=== PATIENT | female | born 1930 | race Caucasian/White ===

== ENCOUNTER → 2016-12-13 | Outpatient (CLI) | payer MEDICARE ==
[2016-07-30 14:51] VITALS: BP 152/80
[~2016-12-13] MED LIST: ALLO300T PO; DIPH25CA3 PO; ERGO500012 PO; FERR-26 PO; LEVO500T38 PO; LISI10TA2 PO; MELO-150 PO; MELO15TA6 PO; METF10002 PO; OMEP20CA9 PO; WARF5TAB PO; [UNRECOGNIZED DRUG - OTHER] PO
--- NOTE | 2016-12-13 14:27 | RAD ---
Radionuclide parathyroid scan, 12/13/2016: History: Hypercalcemia Imaging of the neck was performed following IV injection of 21 mCi of technetium 99m sestamibi. At 15 minutes there is a focus of increased activity in the lower neck on the right. This persists on the 2 our delayed images. The findings raise the possibility of a parathyroid adenoma. No other abnormality is seen. IMPRESSION: Positive radionuclide parathyroid scan as described above. Correlation with sonographic findings is suggested.
== END | disposition home or self-care (01) ==
LOC: NM 08:50
PROVIDERS: ATTEND Internal Medicine
DX: E83.52 Hypercalcemia (principal)
CPT/HCPCS: 78070; 96374; A9500

== ENCOUNTER → 2017-05-01 | Outpatient (CLI) | payer MEDICARE ==
[2016-07-30 14:51] VITALS: BP 152/80
[~2017-05-01] MED LIST changes: -ERGO500012 PO; +ERGO500027 PO; -LEVO500T38 PO; +LEVO500T59 PO; -MELO-150 PO; +MELO15TA23 PO; +METF-620 PO; -METF10002 PO; +METF500T4 PO; +WARF-78 PO; -WARF5TAB PO
--- NOTE | 2017-05-01 17:26 | RAD ---
Indication hyperparathyroidism. Grayscale images targeted to the thyroid were obtained. No similar imaging is available. The right lobe of the thyroid measures 4.8 x 1.6 x 1.9 cm. There are 2 subcentimeter masses in the right lobe. One measures approximately 6 mm and contains a septation. An additional mass also measures approximately 6 mm but has no septations or significant complexity associated with it. The isthmus is normal. The left lobe of the thyroid is quite small measuring approximately 1.5 x 1 x 0.7 cm. No additional finding is seen involving the left lobe. IMPRESSION: Subcentimeter nodules in the right lobe of the thyroid. Small left lobe of the thyroid
== END | disposition home or self-care (01) ==
LOC: US 15:32
PROVIDERS: ATTEND Surgery
DX: E04.2 Nontoxic multinodular goiter (principal); E21.3 Hyperparathyroidism, unspecified
CPT/HCPCS: 76536

== ENCOUNTER 2017-05-15 15:28 | Emergency (ER) | payer MEDICARE ==
[~2017-05-15] VITALS: Ht 157.5 cm; Wt 68.0 kg
[~2017-05-15 15:28] MED LIST changes: +CALC500T54 PO
[2017-05-15] MEDS ORDERED: DIPHTH,PERTUSS(ACELL),TET TOX 0.5 ML DISP.SYRIN. VAX IM ONE (17:15)
--- NOTE | 2017-05-15 17:29 | PHYS DOC ---
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 The patient reports that she was transitioning from one floor surface to another and she caught her foot on a raised area in the floor. The patient fell forward landing on her hands and on her face. The patient has an abrasion to her upper lip extending from below the vermilion border approximately an border just below her nose. The patient spit out a few drops of blood that the daughter spoke with her on some Kleenex. The patient has had no ongoing bleeding here in the emergency department. The patient is eager to go back over to [facility] that she could visit her . The patient had hernia surgery just over a week ago. The patient missed her follow-up appointment secondary to concerns with her . The patient denies any ongoing headache, nausea, vomiting, and/or extremity pain. The patient is easily able to ambulate across the room. The patient is uncertain of her last date of her tetanus shot she'll be provided with a tetanus shot here in the emergency department. The patient denies any loss of consciousness after her fall. Review of Systems Review of Systems Constitutional: Denies fever or chills [] Eyes: Denies change in visual acuity, redness, or eye pain [] HENT: Denies nasal congestion or sore throat abrasion to upper lip that is hemostatic at this time[] Respiratory: Denies cough or shortness of breath [] Cardiovascular: No additional information not addressed in HPI [] GI: Denies abdominal pain, nausea, vomiting, bloody stools or diarrhea [] : Denies dysuria or hematuria [] Musculoskeletal: Denies back pain or joint pain no bony point tenderness on exam of bilateral upper extremities and lower extremities[] Integument: Denies rash or skin lesions [] Neurologic: Denies headache, focal weakness or sensory changes patient ambulatory with a narrow based gait[] Endocrine: Denies polyuria or polydipsia [] Current Medications Current Medications Current Medications Medications (Trade) Dose Ordered Sig/Eugene Start Time Stop Time Status Last Admin Dose Admin Diphtheria/ Tetanus/Acell Pertussis (Boostrix) 0.5 ml ONCE ONCE 05/15/17 17:15 05/15/17 17:16 DC 05/15/17 17:38 0.5 ML Allergies Allergies Allergies Coded Allergies Type Severity Reaction Last Updated Verified labetalol Allergy Intermediate 05/05/17 Yes Physical Exam Physical Exam Constitutional: Well developed, well nourished, no acute distress, non-toxic appearance. [] HENT: Normocephalic, atraumatic, bilateral external ears normal, oropharynx moist, no oral exudates, nose normal. [] Eyes: PERRLA, EOMI, conjunctiva normal, no discharge. [] Neck: Normal range of motion, no tenderness, supple, no stridor. [] Cardiovascular:Heart rate regular rhythm, no murmur [] Lungs & Thorax: Bilateral breath sounds clear to auscultation [] Abdomen: Bowel sounds normal, soft, no tenderness, no masses, no pulsatile masses. [] Skin: Warm, dry, no erythema, no rash. [] Back: No tenderness, no CVA tenderness. [] Extremities: No tenderness, no cyanosis, no clubbing, ROM intact, no edema. [] Neurologic: Alert and oriented X 3, normal motor function, normal sensory function, no focal deficits noted. [] Psychologic: Affect normal, judgement normal, mood normal. [] Current Patient Data Vital Signs Vital Signs Date Time Temp Pulse Resp B/P (MAP) Pulse Ox O2 Delivery O2 Flow Rate FiO2 05/15/17 17:40 64 18 171/82 (111) 98 Room Air 05/15/17 16:20 98.0 98.0 EKG EKG [] Radiology/Procedures Radiology/Procedures [] Course & Med Decision Making Course & Med Decision Making Pertinent Labs and Imaging studies reviewed. (See chart for details) The patient has had no bleeding here in the emergency department the patient does not have any abdominal pain. The patient's abdominal exam does not indicate any change to her recently repaired hernias. The patient is ambulatory and is usually delivers department I offered the patient and her mother laboratory evaluation and at this point they would prefer to defer that unless she has further problems.[] Dragon Disclaimer Dragon Disclaimer This electronic medical record was generated, in whole or in part, using a voice recognition dictation system. Departure Departure Impression: Primary Impression: Abrasion Additional Impression: Fall (on)(from) escalator, initial encounter Disposition: HOME, SELF-CARE Condition: GOOD Patient Instructions: Abrasion, [id number], Fall Prevention and Home Safety Additional Instructions: Please follow-up with your primary care physician in 7 days. Please feel free to follow up in the emergency department she do not be able to follow up with her primary care physician. Problem Qualifiers CARMEN GREGORY MD May 15, 2017 17:29
[2017-05-15 17:40] VITALS: BP 171/82
== END 2017-05-15 17:45 | disposition home or self-care (01) ==
LOC: ER 15:28
DX: S00.511A Abrasion of lip, initial encounter (principal); E11.9 Type 2 diabetes mellitus without complications; I10 Essential (primary) hypertension; Z88.8 Allergy status to other drugs, medicaments and biological substances; W10.0XXA Fall (on)(from) escalator, initial encounter; Y93.89 Activity, other specified; Y92.89 Other specified places as the place of occurrence of the external cause; Y99.8 Other external cause status
CPT/HCPCS: 90471; 90715; 99284-25

== ENCOUNTER 2017-06-13 14:31 | Emergency (ER) | payer MEDICARE ==
[~2017-06-13] VITALS: Ht 154.9 cm; Wt 67.1 kg
[2017-06-13 14:39] VITALS: BP 159/73
[2017-06-13] MEDS ORDERED: DICL100G18 TP (14:58)
[2017-06-13] MEDS ORDERED: DEXAMETHASONE SOD PHOS 20 MG/5 ML VIAL. IM ONE (15:00)
[2017-06-13] MEDS ORDERED: KETOROLAC 30 MG/ML INJ. IM ONE (15:00)
--- NOTE | 2017-06-13 15:01 | PHYS DOC ---
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 Patient states she was seen by the PCP and they did x-rays of the right hand. She states the x-rays were negative. She states she was discharged with hydrocodone 7.5/325mg with no relief. Review of Systems Review of Systems Constitutional: Denies fever or chills [] Musculoskeletal: Right hand pain and swelling Integument: Denies rash or skin lesions [] Neurologic: Denies headache, focal weakness or sensory changes [] Current Medications Current Medications Current Medications Medications (Trade) Dose Ordered Sig/Eugene Start Time Stop Time Status Last Admin Dose Admin Dexamethasone Sodium Phosphate (Decadron) 10 mg 1X ONCE 06/13/17 15:00 06/13/17 15:01 DC Ketorolac Tromethamine (Toradol) 30 mg 1X ONCE 06/13/17 15:00 06/13/17 15:01 DC Allergies Allergies Allergies Coded Allergies Type Severity Reaction Last Updated Verified labetalol Allergy Intermediate 05/05/17 Yes Physical Exam Physical Exam Constitutional: Well developed, well nourished, no acute distress, non-toxic appearance. [] Skin: Warm, dry, no erythema, no rash. [] Back: No tenderness, no CVA tenderness. [] Extremities: Right hand with mild amount of soft tissue swelling on the dorsal side. Diffuse tenderness throughout the right hand, no bruising to the right eye. Full range of motion to the right hand and fingers. Adequate radial medial sensation to the right hand. +2 right radial pulse. Cap refill less than 2 seconds the right fingers. Neurologic: Alert and oriented X 3, normal motor function, normal sensory function, no focal deficits noted. [] Psychologic: Affect normal, judgement normal, mood normal. [] Current Patient Data Vital Signs Vital Signs Date Time Temp Pulse Resp B/P (MAP) Pulse Ox O2 Delivery O2 Flow Rate FiO2 10/20/17 14:39 98.0 75 20 159/73 (101) 95 Room Air 98.0 EKG EKG [] Radiology/Procedures Radiology/Procedures [] Course & Med Decision Making Course & Med Decision Making Pertinent Labs and Imaging studies reviewed. (See chart for details) Patient is in the ED with right hand pain for 5 days. She was already seen at the urgent care/PCPs office on Friday they did x-rays which were negative. Provided Brendon wrap to the right hand applied by the glass installer technician. Neurovascular exam is intact. Discharged with diclofenac cream. She already has Lortab at home. Follow-up with orthopedic doctor in one week. Dragon Disclaimer Dragon Disclaimer This electronic medical record was generated, in whole or in part, using a voice recognition dictation system. Departure Departure Impression: Primary Impression: Right hand pain Disposition: HOME, SELF-CARE Condition: STABLE Referrals: ERVIN JOE MD (PCP) CRISTÓBAL UPTON MD Call his office today and set up a follow-up appointment Patient Instructions: Joint Sprain Additional Instructions: You were seen for right hand pain and swelling after falling on Friday. Wear the Brendon wrap provided as tolerated. Try and elevate your right upper extremity as tolerated. Contact the provided orthopedic doctor in one week and follow-up. Continue taking your hydrocodone as needed for pain. Scripts Diclofenac Sodium (VOLTAREN) 100 Gm Gel..gram. 1 GM TP QID, #100 GM 2 Refills Prov: PARRIS RAMACHANDRAN APRN 06/13/17 PARRIS RAMACHANDRAN APRN Jun 13, 2017 15:01
== END 2017-06-13 15:14 | disposition home or self-care (01) ==
LOC: ER 14:31
DX: M79.641 Pain in right hand (principal); M79.89 Other specified soft tissue disorders; E11.9 Type 2 diabetes mellitus without complications; I10 Essential (primary) hypertension; Z88.8 Allergy status to other drugs, medicaments and biological substances
CPT/HCPCS: 96372; 99284; J1100; J1885

== ENCOUNTER 2017-11-22 07:25 | Observation (INO) | payer MEDICARE ==
[2017-11-22] MEDS ORDERED: CONTRAST GIVEN MC ×2 (08:00)
[2017-11-22] MEDS: IOHEXOL 300 MG/ML 100ML VIAL. IV ×2 (08:00)
[2017-11-22 08:03] LABS: BILIRUBIN,URINE NEGATIVE (NEG); CLARITY,URINE CLEAR; COLOR,URINE YELLOW; GLUCOSE,URINE NEGATIVE (NEG); NITRITE,URINE NEGATIVE (NEG); PROTEIN,URINE NEGATIVE (NEG-TRACE); UROBILINOGEN,URINE 0.2 mg/dL (0.2 mg/dL)
[2017-11-22 08:15] LABS: BACTERIA,URINE MOD /HPF (0-FEW); RBC,URINE OCC /HPF (0-2); SQUAMOUS EPITHELIAL CELL,UR MOD /LPF
[2017-11-22 08:20] LABS: ADD MAN DIFF? NO
[2017-11-22 08:22] LABS: BASO # 0.1 x10^3/uL (0.0-0.2); BASO % 1 % (0-3); EOS # 0.1 x10^3/uL (0.0-0.7); EOS % 1 % (0-3); HEMATOCRIT 39.6 % (36.0-47.0); HEMOGLOBIN 13.2 g/dL (12.0-15.5); LYMPH # 1.7 x10^3/uL (1.0-4.8); LYMPH % 13 % (24-48); MEAN CORPUSCULAR HEMOGLOBIN 28 pg (25-35); MEAN CORPUSCULAR HGB CONC 33 g/dL (31-37); MEAN CORPUSCULAR VOLUME 85 fL (79-100); MONO # 1.1 x10^3/uL (0.0-1.1); MONO % 8 % (0-9); NEUT # 10.1 x10^3uL (1.8-7.7); NEUT % 77 % (31-73); PLATELET COUNT 284 x10^3/uL (140-400); RED BLOOD COUNT 4.66 x10^6/uL (3.50-5.40); WHITE BLOOD COUNT 13.1 x10^3/uL (4.0-11.0)
[2017-11-22 08:37] LABS: ANION GAP 11 (6-14); BLOOD UREA NITROGEN 33 mg/dL (7-20); BUN/CREATININE RATIO 22 (6-20); CALCIUM 8.7 mg/dL (8.5-10.1); CARBON DIOXIDE 25 mmol/L (21-32); CHLORIDE 105 mmol/L (98-107); CREATININE 1.5 mg/dL (0.6-1.0); GLUCOSE 130 mg/dL (70-99); POTASSIUM 4.4 mmol/L (3.5-5.1); SODIUM 141 mmol/L (136-145)
[2017-11-22 08:40] LABS: TROPONINI < 0.017 ng/mL (0.000-0.055)
[2017-11-22 08:43] LABS: ALBUMIN 3.4 g/dL (3.4-5.0); ALBUMIN/GLOBULIN RATIO 0.9 (1.0-1.7); ALK PHOS 82 U/L (46-116); ALT (SGPT) 13 U/L (14-59); AST (SGOT) 13 U/L (15-37); CREATINE KINASE 37 U/L (26-192); LIPASE 161 U/L (73-393); TOTAL BILIRUBIN 0.6 mg/dL (0.2-1.0)
[2017-11-22 08:45] LABS: CKMB MASS 0.5 ng/mL (0.0-3.6); CREATINE KINASE 38 U/L (26-192)
[2017-11-22] MEDS: IOHEXOL 240 MG/ML 50ML VIAL. PO ×2 (08:45)
[2017-11-22] MEDS: ONDANSETRON PF 4 MG/2 ML VIAL. IV ×2 (09:01)
[2017-11-22] MEDS: fentaNYL PF VIAL 100 MCG/2 ML VIAL IV ×2 (09:02)
[2017-11-22] MEDS ORDERED: ONDANSETRON PF 4 MG/2 ML VIAL. IV ×2 (11:30)
[2017-11-22] MEDS ORDERED: ACETAMINOPHEN 325 MG TABLET. PO ×2 (11:30)
[2017-11-22 12:06] LABS: POC GLUCOSE 105 mg/dL (70-99)
[2017-11-22] MEDS: MORPHINE SULFATE 4 MG/ML DISP.SYRIN. IV ×2 (12:27)
[2017-11-22] MEDS: HYDROcodone/APAP 5/325MG 1 TAB TABLET PO ×4 (18:13→23:05)
[2017-11-22 21:01] LABS: TROPONINI < 0.017 ng/mL (0.000-0.055)
[2017-11-23 05:44] LABS: ADD MAN DIFF? NO
[2017-11-23 06:01] LABS: BASO # 0.1 x10^3/uL (0.0-0.2); BASO % 1 % (0-3); EOS # 0.1 x10^3/uL (0.0-0.7); EOS % 1 % (0-3); LYMPH # 2.3 x10^3/uL (1.0-4.8); LYMPH % 22 % (24-48); MEAN CORPUSCULAR HEMOGLOBIN 28 pg (25-35); MEAN CORPUSCULAR HGB CONC 33 g/dL (31-37); MEAN CORPUSCULAR VOLUME 86 fL (79-100); MONO # 0.6 x10^3/uL (0.0-1.1); MONO % 6 % (0-9); NEUT # 7.6 x10^3uL (1.8-7.7); NEUT % 71 % (31-73); PLATELET COUNT 258 x10^3/uL (140-400); RED BLOOD COUNT 4.29 x10^6/uL (3.50-5.40); RED CELL DISTRIBUTION WIDTH 14.3 % (11.5-14.5); WHITE BLOOD COUNT 10.7 x10^3/uL (4.0-11.0)
[2017-11-23 06:18] LABS: ALBUMIN 2.9 g/dL (3.4-5.0); ALBUMIN/GLOBULIN RATIO 0.8 (1.0-1.7); ALK PHOS 70 U/L (46-116); ALT (SGPT) 12 U/L (14-59); ANION GAP 11 (6-14); AST (SGOT) 14 U/L (15-37); BLOOD UREA NITROGEN 30 mg/dL (7-20); BUN/CREATININE RATIO 23 (6-20); CARBON DIOXIDE 24 mmol/L (21-32); CHLORIDE 105 mmol/L (98-107); CREATININE 1.3 mg/dL (0.6-1.0); GFR 38.9; POTASSIUM 4.4 mmol/L (3.5-5.1); SODIUM 140 mmol/L (136-145); TOTAL BILIRUBIN 0.7 mg/dL (0.2-1.0); TOTAL PROTEIN 6.5 g/dL (6.4-8.2)
[2017-11-23 06:26] LABS: GLUCOSE 41 mg/dL (70-99)
[2017-11-23 06:36] LABS: POC GLUCOSE 119 mg/dL (70-99)
[2017-11-23 07:37] LABS: POC GLUCOSE 188 mg/dL (70-99)
[2017-11-23] MEDS ORDERED: BISACODYL 5 MG TABLET.DR. PO ×2 (08:00)
[2017-11-23] MEDS ORDERED: traMADol 50 MG TABLET PO ×2 (09:00)
[2017-11-23] MEDS ORDERED: DOCUSATE SODIUM 100 MG CAPSULE. PO ×2 (09:00)
[2017-11-23] MEDS ORDERED: DEXTROSE 50% 25 GM / 50ML DISP.SYRIN. IV ×2 (09:00)
[2017-11-23] MEDS ORDERED: MORPHINE SULFATE 4 MG/ML DISP.SYRIN. IV ×2 (09:00)
[2017-11-23] MEDS ORDERED: ACETAMINOPHEN 325 MG TABLET. PO ×2 (09:00)
[2017-11-23] MEDS ORDERED: hydrALAZINE 20 MG/ML VIAL. IVP ×2 (09:00)
[2017-11-23] MEDS: PANTOPRAZOLE 40 MG TABLET.DR. PO ×2 (09:48)
[2017-11-23] MEDS: LISINOPRIL 10 MG TABLET PO ×2 (09:51)
[2017-11-23] MEDS: HYDROcodone/APAP 5/325MG 1 TAB TABLET PO ×2 (09:52)
[2017-11-23] MEDS: INSULIN ASPART 300 UNITS/3 ML INSULN.PEN SQ ×6 (09:54→17:00)
[2017-11-23] MEDS: IV NORMAL SALINE 1000ML BAG 1,000 ML IV ×2 (09:54)
[2017-11-23 11:43] LABS: POC GLUCOSE 107 mg/dL (70-99)
[2017-11-23 16:14] LABS: POC GLUCOSE 125 mg/dL (70-99)
[2017-11-23] MEDS: BISACODYL 5 MG TABLET.DR. PO ×2 (16:38)
[2017-11-23] MEDS: POLYETHYLENE GLYCOL 3350 238 GM POWDER PO ×2 (16:41)
[2017-11-23] MEDS ORDERED: MAGNESIUM CITRATE 296 ML SOLUTION. PO ×2 (19:00)
[2017-11-23 20:59] LABS: POC GLUCOSE 135 mg/dL (70-99)
[2017-11-24] MEDS: IV NORMAL SALINE 1000ML BAG 1,000 ML IV ×2 (05:00)
[2017-11-24 05:52] LABS: ADD MAN DIFF? NO
[2017-11-24 06:03] LABS: BASO # 0.1 x10^3/uL (0.0-0.2); BASO % 1 % (0-3); EOS # 0.1 x10^3/uL (0.0-0.7); EOS % 1 % (0-3); HEMATOCRIT 37.2 % (36.0-47.0); HEMOGLOBIN 12.1 g/dL (12.0-15.5); LYMPH # 1.7 x10^3/uL (1.0-4.8); LYMPH % 19 % (24-48); MEAN CORPUSCULAR HEMOGLOBIN 28 pg (25-35); MEAN CORPUSCULAR HGB CONC 33 g/dL (31-37); MEAN CORPUSCULAR VOLUME 85 fL (79-100); MONO # 0.7 x10^3/uL (0.0-1.1); MONO % 8 % (0-9); NEUT # 6.4 x10^3uL (1.8-7.7); NEUT % 70 % (31-73); PLATELET COUNT 260 x10^3/uL (140-400); RED BLOOD COUNT 4.35 x10^6/uL (3.50-5.40); RED CELL DISTRIBUTION WIDTH 14.2 % (11.5-14.5); WHITE BLOOD COUNT 9.1 x10^3/uL (4.0-11.0)
[2017-11-24 06:25] LABS: POC GLUCOSE 136 mg/dL (70-99)
[2017-11-24 06:28] LABS: ANION GAP 10 (6-14); BLOOD UREA NITROGEN 18 mg/dL (7-20); CALCIUM 8.5 mg/dL (8.5-10.1); CARBON DIOXIDE 25 mmol/L (21-32); CHLORIDE 107 mmol/L (98-107); CREATININE 1.3 mg/dL (0.6-1.0); GFR 38.9; GLUCOSE 131 mg/dL (70-99); POTASSIUM 3.9 mmol/L (3.5-5.1); SODIUM 142 mmol/L (136-145)
[2017-11-24] MEDS: IV RINGERS,LACTATED 1000ML 1,000 ML IV ×2 (07:15)
[2017-11-24] MEDS ORDERED: PROPOFOL 40 ML IV ×2 (07:38)
[2017-11-24] MEDS: INSULIN ASPART 300 UNITS/3 ML INSULN.PEN SQ ×6 (08:00→17:00)
[2017-11-24 09:35] LABS: POC GLUCOSE 112 mg/dL (70-99)
[2017-11-24] MEDS: PANTOPRAZOLE 40 MG TABLET.DR. PO ×2 (09:39)
[2017-11-24] MEDS: metFORMIN 500 MG TABLET PO ×2 (09:39)
[2017-11-24] MEDS: LISINOPRIL 10 MG TABLET PO ×2 (09:40)
[2017-11-24] MEDS: ONDANSETRON PF 4 MG/2 ML VIAL. IV ×2 (12:22)
[2017-11-24 12:24] LABS: POC GLUCOSE 132 mg/dL (70-99)
[2017-11-24 16:54] LABS: POC GLUCOSE 133 mg/dL (70-99)
== END 2017-11-24 17:50 | disposition home or self-care (01) ==
LOC: 4 NORTH 11:44 → ER 07:25 → 4 NORTH 11:06
DX: K57.30 Diverticulosis of large intestine without perforation or abscess without bleeding (principal); K52.9 Noninfective gastroenteritis and colitis, unspecified; N17.0 Acute kidney failure with tubular necrosis; K21.0 Gastro-esophageal reflux disease with esophagitis; K29.00 Acute gastritis without bleeding; N17.9 Acute kidney failure, unspecified; I10 Essential (primary) hypertension; E11.9 Type 2 diabetes mellitus without complications; K56.699 Other intestinal obstruction unspecified as to partial versus complete obstruction; Z82.49 Family history of ischemic heart disease and other diseases of the circulatory system; Z83.3 Family history of diabetes mellitus; Z79.84 Long term (current) use of oral hypoglycemic drugs; Z85.3 Personal history of malignant neoplasm of breast; Z90.710 Acquired absence of both cervix and uterus; Z96.653 Presence of artificial knee joint, bilateral
CPT/HCPCS: 36415; 71045; 74176; 80048; 80053; 81001; 82550; 82553; 82962; 83690; 84484; 85025; 88305; 88342; 96374; 96375; 96376; 97165-GO; 99285-25; G0378; G0379; J1815; J2270; J2405; J2704; J3010; J7030; J7120

== ENCOUNTER 2018-05-06 22:03 | Emergency (ER) | payer MEDICARE ==
[~2018-05-06] VITALS: Ht 157.5 cm; Wt 62.1 kg
[~2018-05-06 22:03] MED LIST changes: +DICL100G18 TP; -FERR-26 PO; +FERR325T14 PO; -METF-620 PO; +METF10007 PO; +METF500T16 PO; -METF500T4 PO; +Pantoprazole PO
--- NOTE | 2018-05-06 22:53 | PHYS DOC ---
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 Patient denies any nausea, fever, diarrhea, chest pain, shortness of air. Review of Systems Review of Systems Constitutional: Denies fever or chills [] Eyes: Denies change in visual acuity, redness, or eye pain [] HENT: Denies nasal congestion or sore throat [] Respiratory: Denies cough or shortness of breath [] Cardiovascular: No additional information not addressed in HPI [] GI: Left upper, mid, and lower abdominal pain. Denies nausea, vomiting, bloody stools or diarrhea [] : Denies dysuria or hematuria [] Musculoskeletal: Denies back pain or joint pain [] Integument: Denies rash or skin lesions [] Neurologic: Denies headache, focal weakness or sensory changes [] Endocrine: Denies polyuria or polydipsia [] All other systems were reviewed and found to be within normal limits, except as documented in this note. Allergies Allergies Allergies Coded Allergies Type Severity Reaction Last Updated Verified labetalol Allergy Intermediate 05/05/17 Yes Physical Exam Physical Exam Constitutional: Well developed, well nourished, no acute distress, non-toxic appearance. [] HENT: Normocephalic, atraumatic, bilateral external ears normal, oropharynx moist, no oral exudates, nose normal. [] Eyes: PERRLA, EOMI, conjunctiva normal, no discharge. [] Neck: Normal range of motion, no tenderness, supple, no stridor. [] Cardiovascular:Heart rate regular rhythm, no murmur [] Lungs & Thorax: Bilateral breath sounds clear to auscultation [] Abdomen: Bowel sounds normal, soft, Left upper, mid and lower abdominal tenderness, no masses, no pulsatile masses. [] Skin: Warm, dry, no erythema, no rash. [] Back: No tenderness, no CVA tenderness. [] Extremities: No tenderness, no cyanosis, no clubbing, ROM intact, no edema. [] Neurologic: Alert and oriented X 3, normal motor function, normal sensory function, no focal deficits noted. [] Psychologic: Affect normal, judgement normal, mood normal. [] Current Patient Data Vital Signs Vital Signs Date Time Temp Pulse Resp B/P (MAP) Pulse Ox O2 Delivery O2 Flow Rate FiO2 05/07/18 00:20 68 21 175/76 (109) 98 Room Air 05/06/18 22:20 98.1 98.1 Lab Values Laboratory Tests Test 05/06/18 22:43 05/07/18 00:11 White Blood Count 10.1 x10^3/uL (4.0-11.0) Red Blood Count 4.37 x10^6/uL (3.50-5.40) Hemoglobin 13.1 g/dL (12.0-15.5) Hematocrit 38.3 % (36.0-47.0) Mean Corpuscular Volume 88 fL (79-100) Mean Corpuscular Hemoglobin 30 pg (25-35) Mean Corpuscular Hemoglobin Concent 34 g/dL (31-37) Red Cell Distribution Width 14.0 % (11.5-14.5) Platelet Count 285 x10^3/uL (140-400) Neutrophils (%) (Auto) 68 % (31-73) Lymphocytes (%) (Auto) 22 % (24-48) L Monocytes (%) (Auto) 8 % (0-9) Eosinophils (%) (Auto) 2 % (0-3) Basophils (%) (Auto) 1 % (0-3) Neutrophils # (Auto) 6.9 x10^3uL (1.8-7.7) Lymphocytes # (Auto) 2.2 x10^3/uL (1.0-4.8) Monocytes # (Auto) 0.8 x10^3/uL (0.0-1.1) Eosinophils # (Auto) 0.2 x10^3/uL (0.0-0.7) Basophils # (Auto) 0.1 x10^3/uL (0.0-0.2) Sodium Level 139 mmol/L (136-145) Potassium Level 4.3 mmol/L (3.5-5.1) Chloride Level 102 mmol/L (98-107) Carbon Dioxide Level 29 mmol/L (21-32) Anion Gap 8 (6-14) Blood Urea Nitrogen 36 mg/dL (7-20) H Creatinine 1.7 mg/dL (0.6-1.0) H Estimated GFR (Cockcroft-Gault) 28.5 BUN/Creatinine Ratio 21 (6-20) H Glucose Level 148 mg/dL (70-99) H Calcium Level 8.8 mg/dL (8.5-10.1) Total Bilirubin 0.7 mg/dL (0.2-1.0) Aspartate Amino Transferase (AST) 16 U/L (15-37) Alanine Aminotransferase (ALT) 9 U/L (14-59) L Alkaline Phosphatase 74 U/L (46-116) Troponin I Quantitative < 0.017 ng/mL (0.000-0.055) Total Protein 7.8 g/dL (6.4-8.2) Albumin 3.7 g/dL (3.4-5.0) Albumin/Globulin Ratio 0.9 (1.0-1.7) L Lipase 211 U/L (73-393) Urine Collection Type Unknown Urine Color Yellow Urine Clarity Clear Urine pH 6.0 Urine Specific [place] 1.010 Urine Protein Negative mg/dL (NEG-TRACE) Urine Glucose (UA) Negative mg/dL (NEG) Urine Ketones (Stick) Negative mg/dL (NEG) Urine Blood Negative (NEG) Urine Nitrite Negative (NEG) Urine Bilirubin Negative (NEG) Urine Urobilinogen Dipstick 0.2 mg/dL (0.2 mg/dL) Urine Leukocyte Esterase Small (NEG) Urine RBC 0 /HPF (0-2) Urine WBC 5-10 /HPF (0-4) Urine Squamous Epithelial Cells Few /LPF Urine Bacteria Few /HPF (0-FEW) Urine Mucus Slight /LPF Laboratory Tests 05/06/18 22:43 Laboratory Tests 05/06/18 22:43 EKG EKG SINUS RHYTHM NO STEMI Interpretation Time: [address] YOU Radiology/Procedures Radiology/Procedures CT ABDOMEN PELVIS Impressions: [facility] [address] [place], [place] [id number] IMAGING REPORT Signed PATIENT: NATHANIEL SCHMID ACCOUNT: [id number] : 1930 LOCATION: ER AGE: 88 SEX: F EXAM STATUS: REG ER ORD. PHYSICIAN: ANTHONY CHERY APRN REASON: abdominal pain. Hx Diverticulitis PROCEDURE: CT ABDOMEN PELVIS WO CONTRAST PQRS Compliance statement: One or more of the following individualized dose reduction techniques were utilized for this examination: 1. Automated exposure control. 2. Adjustment of the mA and/or kV according to patient size. 3. Use of iterative reconstruction technique. Indication:abd pain, diverticulitis, non contrast due to low gfr, prior sent TECHNIQUE: CT abdomen and pelvis without IV contrast with multiplanar reformats. COMPARISON: Previous study from 11/22/2017 FINDINGS: Limited evaluation of solid abdominal and pelvic organs due to lack of IV contrast. Heart is normal in size. No pericardial or pleural effusion. Calcified granulomas with subsegmental atelectasis in the right middle lobe and lingula. Otherwise, clear lung bases. 9 mm nodular opacity seen in the right major fissure. Noncontrast appearance of the liver, pancreas, adrenals within normal limits. Multiple calcified granulomas are seen in the spleen. Small sliding hiatal hernia. Moderate diffuse atherosclerotic calcifications are seen of the abdominal aorta. No nephrolithiasis or hydronephrosis. Bilateral exophytic renal lesions are seen, the largest in left kidney measuring 3.7 x 3.0 cm demonstrating Hounsfield units compatible with simple cyst. 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 High attenuating partially exophytic lesion is seen in the right kidney measuring 1.3 cm. No enlarged retroperitoneal or pelvic adenopathy. Status post hysterectomy. No free pelvic fluid or ascites. Diffuse sigmoid diverticulosis. No pericolonic inflammatory changes. Status post hysterectomy. No bowel obstruction. Urinary bladder within normal limits. No pneumoperitoneum. No suspicious bony lesion. IMPRESSION: Limited evaluation of solid abdominal and pelvic organs due to lack of IV contrast. 1. Sigmoid colon diverticulosis without diverticulitis. No bowel obstruction. 2. Multiple bilateral renal lesions most likely combination of simple and minimally complicated cysts. However, nonemergent ultrasound of the kidneys recommended for confirmation. Electronically signed by: Laurent Eric DO (05/07/2018 12:09 AM) [facility] DICTATED and SIGNED BY: LAURENT ERIC DO DATE: 05/07/18 0003 Course & Med Decision Making Course & Med Decision Making Patient is a 88 year old female who presents with left upper, mid and lower abdominal pain since noon today. Patient denies any nausea, fever, diarrhea, chest pain, shortness of air. Patient is alert and oriented. Upon examination patient has left upper mid and lower abdominal tenderness. Patient denies any urinary symptoms. Lungs are clear to auscultation. Abdomen is soft and without masses. Has no extremity edema. Patient denies any blood in her stools or urine. Patient EKG is normal sinus rhythm. Patients abdomen pelvis CT is done without contrast due to kidney lab levels. Patient's troponin is negative and the rest of her blood work is unremarkable. Abdomen pelvis CT shows Limited evaluation of solid abdominal and pelvic organs due to lack of IV contrast.1. Sigmoid colon diverticulosis without diverticulitis. No bowel obstruction.2. Multiple bilateral renal lesions most likely combination of simple and minimally complicated cysts. However, nonemergent ultrasound of the kidneys recommended for confirmation. Patient will be discharged home and should follow up with her primary care physician soon as possible. Patient should return if she starts running a fever or begins having nausea and vomiting. Staff Physician Addendum: I was working in the ER during the course of this patient's visit. I was available for consultation as needed, but I was not directly involved in the care of this patient. Dragon Disclaimer Dragon Disclaimer This electronic medical record was generated, in whole or in part, using a voice recognition dictation system. Departure Departure Impression: Primary Impression: Abdominal pain Disposition: 01 HOME, SELF-CARE Condition: STABLE Referrals: ERVIN JOE MD (PCP) Patient Instructions: Abdominal Pain (Nonspecific) Additional Instructions: Follow up with your primary care. Come back to the ED if the pain becomes worse , your begin running a fever or start to vomit or have diarrhea. Problem Qualifiers Primary Impression: Abdominal pain Abdominal location: generalized Qualified Codes: R10.84 - Generalized abdominal pain ANTHONY CHERY APRN May 06, 2018 22:53 TATI YOU MD May 07, 2018 03:04
[2018-05-06 23:00] LABS: BASO # 0.1 x10^3/uL (0.0-0.2); BASO % 1 % (0-3); EOS # 0.2 x10^3/uL (0.0-0.7); EOS % 2 % (0-3); HEMATOCRIT 38.3 % (36.0-47.0); HEMOGLOBIN 13.1 g/dL (12.0-15.5); LYMPH # 2.2 x10^3/uL (1.0-4.8); LYMPH % 22 % (24-48); MEAN CORPUSCULAR HEMOGLOBIN 30 pg (25-35); MEAN CORPUSCULAR HGB CONC 34 g/dL (31-37); MEAN CORPUSCULAR VOLUME 88 fL (79-100); MONO # 0.8 x10^3/uL (0.0-1.1); MONO % 8 % (0-9); NEUT # 6.9 x10^3uL (1.8-7.7); NEUT % 68 % (31-73); PLATELET COUNT 285 x10^3/uL (140-400); RED BLOOD COUNT 4.37 x10^6/uL (3.50-5.40); WHITE BLOOD COUNT 10.1 x10^3/uL (4.0-11.0)
[2018-05-06 23:12] LABS: CALCIUM 8.8 mg/dL (8.5-10.1); CREATININE 1.7 mg/dL (0.6-1.0); GFR 28.5; POTASSIUM 4.3 mmol/L (3.5-5.1)
[2018-05-06 23:18] LABS: ALBUMIN 3.7 g/dL (3.4-5.0); ALBUMIN/GLOBULIN RATIO 0.9 (1.0-1.7); TOTAL BILIRUBIN 0.7 mg/dL (0.2-1.0); TOTAL PROTEIN 7.8 g/dL (6.4-8.2)
--- NOTE | 2018-05-07 00:12 | RAD ---
PQRS Compliance statement: One or more of the following individualized dose reduction techniques were utilized for this examination: 1. Automated exposure control. 2. Adjustment of the mA and/or kV according to patient size. 3. Use of iterative reconstruction technique. Indication:abd pain, diverticulitis, non contrast due to low gfr, prior sent TECHNIQUE: CT abdomen and pelvis without IV contrast with multiplanar reformats. COMPARISON: Previous study from 11/22/2017 FINDINGS: Limited evaluation of solid abdominal and pelvic organs due to lack of IV contrast. Heart is normal in size. No pericardial or pleural effusion. Calcified granulomas with subsegmental atelectasis in the right middle lobe and lingula. Otherwise, clear lung bases. 9 mm nodular opacity seen in the right major fissure. Noncontrast appearance of the liver, pancreas, adrenals within normal limits. Multiple calcified granulomas are seen in the spleen. Small sliding hiatal hernia. Moderate diffuse atherosclerotic calcifications are seen of the abdominal aorta. No nephrolithiasis or hydronephrosis. Bilateral exophytic renal lesions are seen, the largest in left kidney measuring 3.7 x 3.0 cm demonstrating Hounsfield units compatible with simple cyst. 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 High attenuating partially exophytic lesion is seen in the right kidney measuring 1.3 cm. No enlarged retroperitoneal or pelvic adenopathy. Status post hysterectomy. No free pelvic fluid or ascites. Diffuse sigmoid diverticulosis. No pericolonic inflammatory changes. Status post hysterectomy. No bowel obstruction. Urinary bladder within normal limits. No pneumoperitoneum. No suspicious bony lesion. IMPRESSION: Limited evaluation of solid abdominal and pelvic organs due to lack of IV contrast. 1. Sigmoid colon diverticulosis without diverticulitis. No bowel obstruction. 2. Multiple bilateral renal lesions most likely combination of simple and minimally complicated cysts. However, nonemergent ultrasound of the kidneys recommended for confirmation. Electronically signed by: Laurent Eric DO (05/07/2018 12:09 AM) [facility]
[2018-05-07 00:19] LABS: BILIRUBIN,URINE NEGATIVE (NEG); CLARITY,URINE CLEAR; COLOR,URINE YELLOW; NITRITE,URINE NEGATIVE (NEG); PROTEIN,URINE NEGATIVE (NEG-TRACE); UROBILINOGEN,URINE 0.2 mg/dL (0.2 mg/dL)
[2018-05-07 00:20] VITALS: BP 175/76
[2018-05-07 00:29] LABS: BACTERIA,URINE FEW /HPF (0-FEW); RBC,URINE 0 /HPF (0-2); SQUAMOUS EPITHELIAL CELL,UR FEW /LPF
--- NOTE | 2018-05-07 07:33 | EKG ---
[facility] [address] [place] [address] Test Date: 2018-05-06 Test Time: 23:17:11 Pat Name: NATHANIEL SCHMID Department: Room: Gender: F Web Weaver: : 1930 Requested By: ANTHONY CHERY Order Number: [id number] Reading MD: Xavier Tavarez MD Measurements Intervals [place] Rate: 69 P: 60 AL: 186 QRS: 16 QRSD: 94 T: 31 QT: 424 QTc: 460 Interpretive Statements SINUS RHYTHM Electronically Signed On 05-07-2018 13:56:08 CDT by Xavier Tavarez MD
== END 2018-05-07 00:53 | disposition home or self-care (01) ==
LOC: ER 22:03
DX: R10.84 Generalized abdominal pain (principal); R10.12 Left upper quadrant pain; R10.32 Left lower quadrant pain; E11.9 Type 2 diabetes mellitus without complications; I10 Essential (primary) hypertension; Z90.49 Acquired absence of other specified parts of digestive tract; Z90.710 Acquired absence of both cervix and uterus; Z98.890 Other specified postprocedural states; Z88.8 Allergy status to other drugs, medicaments and biological substances
CPT/HCPCS: 36415; 74176; 80053; 81001; 83690; 84484; 85025; 87086; 93005; 99285-25

== ENCOUNTER 2018-09-16 23:50 | Emergency (ER) | payer MEDICARE ==
[~2018-09-16] VITALS: Ht 157.5 cm; Wt 63.5 kg
[2018-09-17 01:33] LABS: BASO # 0.1 x10^3/uL (0.0-0.2); BASO % 1 % (0-3); EOS # 0.1 x10^3/uL (0.0-0.7); EOS % 2 % (0-3); HEMATOCRIT 35.3 % (36.0-47.0); HEMOGLOBIN 11.6 g/dL (12.0-15.5); LYMPH % 24 % (24-48); MEAN CORPUSCULAR HEMOGLOBIN 28 pg (25-35); MEAN CORPUSCULAR HGB CONC 33 g/dL (31-37); MEAN CORPUSCULAR VOLUME 86 fL (79-100); MONO # 0.6 x10^3/uL (0.0-1.1); MONO % 8 % (0-9); NEUT # 5.4 x10^3uL (1.8-7.7); NEUT % 65 % (31-73); PLATELET COUNT 257 x10^3/uL (140-400); RED BLOOD COUNT 4.11 x10^6/uL (3.50-5.40); RED CELL DISTRIBUTION WIDTH 14.1 % (11.5-14.5); WHITE BLOOD COUNT 8.3 x10^3/uL (4.0-11.0)
[2018-09-17 01:44] LABS: CALCIUM 8.4 mg/dL (8.5-10.1); CREATININE 1.5 mg/dL (0.6-1.0); GFR 32.9; POTASSIUM 4.4 mmol/L (3.5-5.1)
[2018-09-17 01:50] LABS: ALBUMIN 3.4 g/dL (3.4-5.0); DIRECT BILIRUBIN 0.2 mg/dL (0.0-0.2); TOTAL BILIRUBIN 0.9 mg/dL (0.2-1.0)
[2018-09-17] MEDS ORDERED: MORPHINE SULFATE 4 MG/ML VIAL. IV ONE (02:00)
[2018-09-17] MEDS ORDERED: ONDANSETRON PF 4 MG/2 ML VIAL. IV ONE (02:00)
[2018-09-17] MEDS ORDERED: IV NORMAL SALINE 500ML BAG 500 ML IV ONE (02:15)
--- NOTE | 2018-09-17 02:35 | RAD ---
Examination: CT of the abdomen pelvis without contrast HISTORY: History of abdominal pain COMPARISON: 05/06/2018 TECHNIQUE: Axial CT images of the abdomen pelvis were performed without contrast. Coronal and sagittal reformats are performed Exposure: One or more of the following individualized dose reduction techniques were utilized for this examination: 1. Automated exposure control 2. Adjustment of the mA and/or kV according to patient size 3. Use of iterative reconstruction technique FINDINGS: Minimal bibasilar lung atelectasis. No evidence of free air identified in the abdomen The visualized noncontrasted liver, adrenals grossly appears unremarkable. Moderate hiatal hernia. The stomach is mildly distended. The visualized pancreas grossly appears unremarkable. Small bowel is nondilated. Multiple calcified granulomas identified in the spleen. Multiple cystic structures identified in the bilateral kidneys likely cysts or cystic lesions. There is a hyperdensity identified in the right kidney similar to prior exam measuring 1.1 cm could be hyperdense cyst. 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 Multiple sigmoid colon diverticulosis. The appendix is not identified. Feces and gas noted in the colon. The urinary bladder is mildly distended. Moderate aortic atherosclerosis. Moderate degenerative changes throughout the lumbar spine. IMPRESSION: 1. No acute intra-abdominal findings. 2. Sigmoid colon diverticulosis. 3. Multiple cysts or cystic lesions identified in the bilateral kidneys, similar to prior exam. Recommend follow-up nonemergent ultrasound kidneys. Electronically signed by: Abbe Robertson MD (09/17/2018 2:31 AM) [facility]
--- NOTE | 2018-09-17 02:39 | PHYS DOC ---
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 Patient complains of diffuse abdominal pain and bloating. She has had symptoms over the last 10-12 hours. She did have some nausea but no vomiting. No recent fever or chills. Denies urinary symptoms. Pain was constant and became worse so she came to the ER. She does have a prior history of cholecystectomy many years earlier. She denies that she has had symptoms similar to this in the past. She has been having normal bowel movements. She does state that the pain radiates to her chest area as well, more specifically her breasts. No shortness of breath or palpitations. Review of Systems Review of Systems Constitutional: Denies fever or chills Eyes: Denies change in visual acuity HENT: Denies nasal congestion Respiratory: Denies cough or shortness of breath Cardiovascular: No additional information not addressed in HPI GI: Denies emesis : Denies dysuria or hematuria Musculoskeletal: Denies back pain or joint pain Integument: Denies rash or skin lesions Neurologic: Denies headache Endocrine: Denies polyuria All other systems were reviewed and found to be within normal limits, except as documented in this note. Current Medications Current Medications Current Medications Medications (Trade) Dose Ordered Sig/[place] Start Time Stop Time Status Last Admin Dose Admin Morphine Sulfate (Morphine Sulfate) 4 mg 1X ONCE 09/17/18 02:00 09/17/18 02:01 DC 09/17/18 02:31 4 MG Nitrofurantoin Macrocrystals (Macrobid) 100 mg 1X ONCE 09/17/18 03:30 09/17/18 03:31 UNV Ondansetron HCl (Zofran) 4 mg 1X ONCE 09/17/18 02:00 09/17/18 02:01 DC 09/17/18 02:30 4 MG Sodium Chloride 500 ml @ 500 mls/hr 1X ONCE 09/17/18 02:15 09/17/18 03:14 DC 09/17/18 02:33 500 MLS/HR Allergies Allergies Allergies Coded Allergies Type Severity Reaction Last Updated Verified labetalol Allergy Intermediate 05/05/17 Yes Physical Exam Physical Exam Constitutional: Well developed, well nourished, no acute distress, non-toxic appearance HENT: Normocephalic, atraumatic, bilateral external ears normal, oropharynx moist Eyes: PERRLA, EOMI, conjunctiva normal Neck: Normal range of motion, no tenderness Cardiovascular:Heart rate regular rhythm, no murmur Lungs & Thorax: Bilateral breath sounds clear to auscultation Abdomen: Bowel sounds normal, soft, diffuse TTP but no guarding or rebound Skin: Warm, dry, no erythema Back: No tenderness, no CVA tenderness Extremities: No tenderness, no edema Neurologic: Alert and oriented X 3 Psychologic: Affect normal Current Patient Data Vital Signs Vital Signs Date Time Temp Pulse Resp B/P (MAP) Pulse Ox O2 Delivery O2 Flow Rate FiO2 09/17/18 02:31 18 97 Room Air 09/17/18 02:26 68 200/88 (125) 09/17/18 00:30 97.1 97.1 Lab Values Laboratory Tests Test 09/17/18 01:22 09/17/18 02:24 White Blood Count 8.3 x10^3/uL (4.0-11.0) Red Blood Count 4.11 x10^6/uL (3.50-5.40) Hemoglobin 11.6 g/dL (12.0-15.5) L Hematocrit 35.3 % (36.0-47.0) L Mean Corpuscular Volume 86 fL (79-100) Mean Corpuscular Hemoglobin 28 pg (25-35) Mean Corpuscular Hemoglobin Concent 33 g/dL (31-37) Red Cell Distribution Width 14.1 % (11.5-14.5) Platelet Count 257 x10^3/uL (140-400) Neutrophils (%) (Auto) 65 % (31-73) Lymphocytes (%) (Auto) 24 % (24-48) Monocytes (%) (Auto) 8 % (0-9) Eosinophils (%) (Auto) 2 % (0-3) Basophils (%) (Auto) 1 % (0-3) Neutrophils # (Auto) 5.4 x10^3uL (1.8-7.7) Lymphocytes # (Auto) 2.0 x10^3/uL (1.0-4.8) Monocytes # (Auto) 0.6 x10^3/uL (0.0-1.1) Eosinophils # (Auto) 0.1 x10^3/uL (0.0-0.7) Basophils # (Auto) 0.1 x10^3/uL (0.0-0.2) Sodium Level 139 mmol/L (136-145) Potassium Level 4.4 mmol/L (3.5-5.1) Chloride Level 102 mmol/L (98-107) Carbon Dioxide Level 27 mmol/L (21-32) Anion Gap 10 (6-14) Blood Urea Nitrogen 32 mg/dL (7-20) H Creatinine 1.5 mg/dL (0.6-1.0) H Estimated GFR (Cockcroft-Gault) 32.9 Glucose Level 107 mg/dL (70-99) H Lactic Acid Level 0.7 mmol/L (0.4-2.0) Calcium Level 8.4 mg/dL (8.5-10.1) L Total Bilirubin 0.9 mg/dL (0.2-1.0) Direct Bilirubin 0.2 mg/dL (0.0-0.2) Aspartate Amino Transferase (AST) 16 U/L (15-37) Alanine Aminotransferase (ALT) 15 U/L (14-59) Alkaline Phosphatase 58 U/L (46-116) Troponin I Quantitative < 0.017 ng/mL (0.000-0.055) DI-Ufb-L-Type Natriuretic Peptide 1090 pg/mL (0-449) H Total Protein 7.0 g/dL (6.4-8.2) Albumin 3.4 g/dL (3.4-5.0) Lipase 169 U/L (73-393) Urine Collection Type Unknown Urine Color Yellow Urine Clarity Cloudy Urine pH 6.5 Urine Specific Jbphh 1.010 Urine Protein Negative mg/dL (NEG-TRACE) Urine Glucose (UA) Negative mg/dL (NEG) Urine Ketones (Stick) Negative mg/dL (NEG) Urine Blood Negative (NEG) Urine Nitrite Negative (NEG) Urine Bilirubin Negative (NEG) Urine Urobilinogen Dipstick 0.2 mg/dL (0.2 mg/dL) Urine Leukocyte Esterase Large (NEG) Urine RBC Rare /HPF (0-2) Urine WBC 20-40 /HPF (0-4) Urine Squamous Epithelial Cells Mod /LPF Urine Bacteria Few /HPF (0-FEW) Laboratory Tests 09/17/18 01:22 Laboratory Tests 09/17/18 01:22 EKG EKG No STEMI Interpretation Time: 01:10 Radiology/Procedures Radiology/Procedures FINDINGS: Minimal bibasilar lung atelectasis. No evidence of free air identified in the abdomen The visualized noncontrasted liver, adrenals grossly appears unremarkable. Moderate hiatal hernia. The stomach is mildly distended. The visualized pancreas grossly appears unremarkable. Small bowel is nondilated. Multiple calcified granulomas identified in the spleen. Multiple cystic structures identified in the bilateral kidneys likely cysts or cystic lesions. There is a hyperdensity identified in the right kidney similar to prior exam measuring 1.1 cm could be hyperdense cyst. 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 Multiple sigmoid colon diverticulosis. The appendix is not identified. Feces and gas noted in the colon. The urinary bladder is mildly distended. Moderate aortic atherosclerosis. Moderate degenerative changes throughout the lumbar spine. IMPRESSION: 1. No acute intra-abdominal findings. 2. Sigmoid colon diverticulosis. 3. Multiple cysts or cystic lesions identified in the bilateral kidneys, similar to prior exam. Recommend follow-up nonemergent ultrasound kidneys. Course & Med Decision Making Course & Med Decision Making Pertinent Labs and Imaging studies reviewed. (See chart for details) 01:50: Patient is seen and examined. Labs/CT ordered. Morphine for pain. EKG is completed and negative for acute findings. 03:15: All results are reviewed. The patient's lactate is not elevated. She does not have leukocytosis. She is noted to have a urinary tract infection. There are no acute findings on her CT scan of the abdomen pelvis although the scan was completed without IV contrast. Patient is currently feeling improved. She is given 1 dose of Macrobid in the ER and discharge home with a prescription for the same. She is advised to come back to the ER for any new or worsening symptoms. Of note, the patient complains of breast pain. She did not have chest pain. Because of this, a breast exam was performed prior to discharge with her daughter in the room. The patient does have some palpable lumps that seem consistent with fibrocystic breast. She states her last mammogram was 3 months earlier and that she is scheduled to have a repeat hemogram in the near future. There was no nipple discharge or dimpling of the breast tissue. No erythema. Patient is advised to come back to the ER for any worsening pain or if she develops a fever. Otherwise, follow up with her primary care doctor. Dragon Disclaimer Dragon Disclaimer This electronic medical record was generated, in whole or in part, using a voice recognition dictation system. Departure Departure Disposition: 01 HOME, SELF-CARE Condition: GOOD Referrals: ERVIN JOE MD (PCP) Scripts Nitrofurantoin Monohyd/M-Cryst (MACROBID 100 MG CAPSULE) 100 Mg Capsule 1 CAP PO BID, #10 CAP Prov: WILMER BACA DO 09/17/18 WILMER BACA DO Sep 17, 2018 02:39
[2018-09-17 02:41] LABS: BILIRUBIN,URINE NEGATIVE (NEG); CLARITY,URINE CLOUDY; COLOR,URINE YELLOW; NITRITE,URINE NEGATIVE (NEG); PH,URINE 6.5; PROTEIN,URINE NEGATIVE (NEG-TRACE); UROBILINOGEN,URINE 0.2 mg/dL (0.2 mg/dL)
[2018-09-17 02:56] VITALS: BP 167/75
[2018-09-17 02:57] LABS: BACTERIA,URINE FEW /HPF (0-FEW); RBC,URINE RARE /HPF (0-2); SQUAMOUS EPITHELIAL CELL,UR MOD /LPF; WBC,URINE 20-40 /HPF (0-4)
[2018-09-17] MEDS ORDERED: NITR100C62 PO (03:19)
[2018-09-17] MEDS ORDERED: NITROFURANTOIN MONOHYD/M-CRYST 100 MG CAPSULE. PO ONE (03:30)
--- NOTE | 2018-09-17 06:20 | EKG ---
[facility] [address] [place] [address] Test Date: 2018-09-17 Test Time: 01:08:05 Pat Name: NATHANIEL SCHMID Department: Room: Gender: F Biology Specimen Technician: : [id number] Requested By: WILMER BACA Order Number: [id number] Reading MD: Measurements Intervals [place] Rate: 59 P: 90 ID: [id number] QRS: 32 QRSD: 92 T: 40 QT: 446 QTc: 446 Interpretive Statements SINUS RHYTHM QRS(T) CONTOUR ABNORMALITY CONSIDER ANTEROLATERAL MYOCARDIAL DAMAGE POSSIBLY ABNORMAL ECG RI6.01 No previous ECG available for comparison
== END 2018-09-17 03:29 | disposition home or self-care (01) ==
LOC: ER 23:50
DX: N39.0 Urinary tract infection, site not specified (principal); N64.4 Mastodynia; K57.30 Diverticulosis of large intestine without perforation or abscess without bleeding; N28.1 Cyst of kidney, acquired; E11.9 Type 2 diabetes mellitus without complications; I10 Essential (primary) hypertension; Z90.49 Acquired absence of other specified parts of digestive tract; Z90.710 Acquired absence of both cervix and uterus; Z88.8 Allergy status to other drugs, medicaments and biological substances
CPT/HCPCS: 36415; 74176; 80048; 80076; 81001; 83605; 83690; 83880; 84484; 85025; 93005; 96374; 96375; 99284; J2270; J2405; J7040

== ENCOUNTER → 2019-09-08 | Outpatient (CLI) | payer MEDICARE ==
[2019-08-20 11:00] VITALS: BP 138/73
[~2019-09-08] MED LIST changes: +AMLO10TA8 PO; +DIPH25CA23 PO; -DIPH25CA3 PO; +NITR100C62 PO; +OMEP20CA16 PO; -OMEP20CA9 PO
--- NOTE | 2019-09-08 12:17 | CARD ---
MR#: [id number] Date of Study: 09/08/2019 Ordering Physician: MAT PEREIRA, Referring Physician: MAT PEREIRA, Tech: Leana Medina [facility] APPROVED REPORT EXAM: Two-dimensional and M-mode echocardiogram with Doppler and color Doppler. Other Information Quality : Good INDICATION Hypertension/HCVD 2D DIMENSIONS RVDd2.8 (2.9-3.5cm)Left Atrium(2D)4.0 (1.6-4.0cm) IVSd1.5 (0.7-1.1cm)Aortic Root(2D)2.7 (2.0-3.7cm) LVDd3.7 (3.9-5.9cm)LVOT Diameter1.9 (1.8-2.4cm) PWd1.1 (0.7-1.1cm)LVDs2.3 (2.5-4.0cm) FS (%) 30.0 %SV41.0 ml LVEF(%)60.0 (>50%) Aortic Valve AoV Peak Robert.174.4cm/sAoV VTI35.9cm AO Peak GR.12.2mmHgLVOT Peak Robert.149.7cm/s AO Mean GR.7mmHgAVA (VMAX)2.31cm2 MARY (VTI)2.80cm2 Mitral Valve MV E Cjpilglt887.6cm/sMV E Peak Gr.11mmHg MV DECEL [id number] A Fxsqquei598.5cm/s MV E Mean Gr.4mmHgE/A Ratio0.8 Tricuspid Valve TR P. Dqgdzfpt300pc/sRAP CDIEWYMG6whTu TR Peak Gr.45svQvVRHQ36rgWn Pulmonary Vein S1 Ntuhsixc55.4cm/sD2 Vbdqgwbd69.5cm/s LEFT VENTRICLE The left ventricle is normal size. There is mild to moderate asymmetric septal hypertrophy. The left ventricular systolic function is normal and the ejection fraction is within normal range. The Ejectio n Fraction is 60-65%. There is normal LV segmental wall motion. Transmitral Doppler flow pattern is G rade I-abnormal relaxation pattern. RIGHT VENTRICLE The right ventricle is normal size. The right ventricular systolic function is normal. ATRIA The left atrium is mildly dilated. The right atrium size is normal. The interatrial septum is intact with no evidence for an atrial septal defect or patent foramen ovale as noted on 2-D or Doppler imagi ng. AORTIC VALVE The aortic valve is mildly thickened but opens well. Doppler and Color Flow revealed no significant a ortic regurgitation. There is no significant aortic valvular stenosis. MITRAL VALVE The mitral valve is calcified and displays decreased opening. Mitral annular calcification is moderat e. There is no evidence of mitral valve prolapse. There is mild mitral valve stenosis. Calculated ariel ral valve area is 2.3 cm2 with maximum pressure gradient of 11 mmHg and mean pressure gradient of 5 m mHg. TRICUSPID VALVE The tricuspid valve is normal in structure and function. Doppler and Color Flow revealed mild tricusp id regurgitation. There is mild pulmonary hypertension. The PA pressure was estimated at 39 mmHg. The re is no tricuspid valve stenosis. PULMONIC VALVE Doppler and Color Flow revealed mild pulmonic valvular regurgitation. There is no pulmonic valvular s tenosis. GREAT VESSELS The aortic root is normal in size. The ascending aorta is normal in size. The IVC is normal in size a nd collapses >50% with inspiration. PERICARDIAL EFFUSION There is no evidence of significant pericardial effusion. Critical Notification Critical Value: No <Conclusion> The left ventricular systolic function is normal and the ejection fraction is within normal range. Th e Ejection Fraction is 60-65%. There is normal LV segmental wall motion. There is mild mitral valve stenosis. Calculated mitral valve area is 2.3 cm2 with maximum pressure gr adient of 11 mmHg and mean pressure gradient of 5 mmHg. Doppler and Color Flow revealed mild tricuspid regurgitation. There is mild pulmonary hypertension. T he PA pressure was estimated at 39 mmHg. Signed by : Mat Pereira, Electronically Approved : 09/08/2019 12:17:05
== END | disposition home or self-care (01) ==
LOC: ECHO 11:00
PROVIDERS: ATTEND Internal Medicine Cardiovascular Disease
DX: I08.8 Other rheumatic multiple valve diseases (principal); I10 Essential (primary) hypertension
CPT/HCPCS: 93306

== ENCOUNTER 2020-05-08 18:39 | Emergency (ER) | payer MEDICARE ==
[~2020-05-08] VITALS: Ht 165.1 cm; Wt 65.9 kg
[~2020-05-08 18:39] MED LIST changes: -DICL100G18 TP; +DICL100G54 TP; -WARF-78 PO; +WARF5TAB2 PO
[2020-05-08 20:19] LABS: BASO # 0.1 x10^3/uL (0.0-0.2); BASO % 1 % (0-3); EOS % 0 % (0-3); HEMATOCRIT 40.8 % (36.0-47.0); HEMOGLOBIN 13.4 g/dL (12.0-15.5); LYMPH % 13 % (24-48); MEAN CORPUSCULAR HEMOGLOBIN 28 pg (25-35); MEAN CORPUSCULAR HGB CONC 33 g/dL (31-37); MEAN CORPUSCULAR VOLUME 85 fL (79-100); MONO % 14 % (0-9); NEUT # 5.6 x10^3/uL (1.8-7.7); NEUT % 72 % (31-73); PLATELET COUNT 235 x10^3/uL (140-400); RED CELL DISTRIBUTION WIDTH 13.4 % (11.5-14.5); WHITE BLOOD COUNT 7.7 x10^3/uL (4.0-11.0)
[2020-05-08 20:24] LABS: CALCIUM 8.8 mg/dL (8.5-10.1); CREATININE 1.9 mg/dL (0.6-1.0); GFR 24.9; POTASSIUM 4.5 mmol/L (3.5-5.1)
[2020-05-08 20:41] LABS: ALBUMIN 3.3 g/dL (3.4-5.0); ALBUMIN/GLOBULIN RATIO 0.9 (1.0-1.7); C-REACTIVE PROTEIN 32.1 mg/L (0-3.3); TOTAL BILIRUBIN 0.7 mg/dL (0.2-1.0)
--- NOTE | 2020-05-08 20:54 | RAD ---
EXAM: CHEST ONE VIEW. HISTORY: Cough. COMPARISON: 08/19/2019. FINDINGS: A frontal view of the chest is obtained. There are no confluent infiltrates. There are calcified granulomas bilaterally. There is no pneumothorax or pleural effusion. The heart is not enlarged. There are atherosclerotic calcifications of the aorta. There are changes of internal fixation of a right humeral diaphyseal fracture. A moderate hiatal hernia is suspected. IMPRESSION: 1. Moderate hiatal hernia. 2. No confluent infiltrates. Electronically signed by: Sherman Carr MD (05/08/2020 8:51 PM) [facility]
--- NOTE | 2020-05-08 21:11 | PHYS DOC ---
Past Medical History Past Medical History: Arthritis, Cancer, Diabetes-Type II, Diverticulitis, GERD, High Cholesterol, Hypertension, UTI Additional Past Medical Histor: CURRENT/HX OF BREAST CA (JUSTIN HERNANDEZ APRN) Past Surgical History: Cholecystectomy, Hysterectomy, Knee Replacement Additional Past Surgical Histo: L LUMPECTOMY, BILAT KNEE, R HUMERUS FX WITH HARDWARE (JUSTIN HERNANDEZ APRN) Smoking Status: Never Smoker Alcohol Use: None Drug Use: None (JUSTIN HERNANDEZ APRN) General Adult EDM: Chief Complaint: COUGH HPI: HPI: Patient is a 89 year old female who presents emergency department with c omplaints of a nonproductive cough, sore throat, weakness, nausea, vomiting, and diarrhea that began about 5 days ago. She reports that she saw her primary care doctor who ordered her an antibiotic that was not helping her. The patient states that she was notified today that her son who she spent the last weekend with, was diagnosed with COVID-19 after she returned to [place]. Currently, she denies any shortness of breath, chest pain, palpitations, or complaints of pain. The patient states that she just does not feel well. (JUSTIN HERNANDEZ APRN) Review of Systems: Review of Systems: Constitutional: Denies fever or chills. [] HENT: Denies nasal congestioh; see HPI Respiratory: Denies shortness of breath or wheezing; see HPI Cardiovascular: Denies chest pain or edema. [] GI: See HPI : Denies dysuria. [] Musculoskeletal: Denies back pain or joint pain. [] Integument: Denies rash. [] Neurologic: Denies headache Psychiatric: Denies depression or anxiety. [] (JUSTIN HERNANDEZ APRN) Heart Score: Risk Factors: Risk Factors: DM, Current or recent (<one month) smoker, HTN, HLP, family history of CAD, obesity. Risk Scores: Score 0 - 3: 2.5% MACE over next 6 weeks - Discharge Home Score 4 - 6: 20.3% MACE over next 6 weeks - Admit for Clinical Observation Score 7 - 10: 72.7% MACE over next 6 weeks - Early Invasive Strategies (JUSTIN HERNANDEZ APRN) Allergies: Allergies: Allergies Coded Allergies Type Severity Reaction Last Updated Verified labetalol Allergy Intermediate 05/05/17 Yes (JUSTIN HERNANDEZ APRN) Physical Exam: PE: Constitutional: Well developed, well nourished, no acute distress, non-toxic appearance. [] HENT: Normocephalic, atraumatic, bilateral external ears normal, nose normal. [] Eyes: PERRLA, EOMI, conjunctiva normal, no discharge. [] Neck: Normal range of motion, no stridor. [] Cardiovascular:Heart rate regular rhythm Lungs & Thorax: Respirations even and unlabored, no retractions, no respiratory distress Abdomen: soft, no tenderness Skin: Warm, dry, no erythema, no rash. [] Extremities: No cyanosis, ROM intact, no edema. [] Neurologic: Alert and oriented X 3, no focal deficits noted. [] Psychologic: Affect normal, judgement normal, mood normal. [] (JUSTIN HERNANDEZ APRN) Current Patient Data: Labs: Laboratory Tests Test 05/08/20 20:03 White Blood Count 7.7 x10^3/uL (4.0-11.0) Red Blood Count 4.80 x10^6/uL (3.50-5.40) Hemoglobin 13.4 g/dL (12.0-15.5) Hematocrit 40.8 % (36.0-47.0) Mean Corpuscular Volume 85 fL (79-100) Mean Corpuscular Hemoglobin 28 pg (25-35) Mean Corpuscular Hemoglobin Concent 33 g/dL (31-37) Red Cell Distribution Width 13.4 % (11.5-14.5) Platelet Count 235 x10^3/uL (140-400) Neutrophils (%) (Auto) 72 % (31-73) Lymphocytes (%) (Auto) 13 % (24-48) L Monocytes (%) (Auto) 14 % (0-9) H Eosinophils (%) (Auto) 0 % (0-3) Basophils (%) (Auto) 1 % (0-3) Neutrophils # (Auto) 5.6 x10^3/uL (1.8-7.7) Lymphocytes # (Auto) 1.0 x10^3/uL (1.0-4.8) Monocytes # (Auto) 1.0 x10^3/uL (0.0-1.1) Eosinophils # (Auto) 0.0 x10^3/uL (0.0-0.7) Basophils # (Auto) 0.1 x10^3/uL (0.0-0.2) D-Dimer (Heather) 0.49 ug/mlFEU (0.00-0.50) Sodium Level 135 mmol/L (136-145) L Potassium Level 4.5 mmol/L (3.5-5.1) Chloride Level 99 mmol/L (98-107) Carbon Dioxide Level 23 mmol/L (21-32) Anion Gap 13 (6-14) Blood Urea Nitrogen 54 mg/dL (7-20) H Creatinine 1.9 mg/dL (0.6-1.0) H Estimated GFR (Cockcroft-Gault) 24.9 BUN/Creatinine Ratio 28 (6-20) H Glucose Level 186 mg/dL (70-99) H Calcium Level 8.8 mg/dL (8.5-10.1) Magnesium Level 2.0 mg/dL (1.8-2.4) Ferritin 152 ng/mL (8-252) Total Bilirubin 0.7 mg/dL (0.2-1.0) Aspartate Amino Transferase (AST) 38 U/L (15-37) H Alanine Aminotransferase (ALT) 37 U/L (14-59) Alkaline Phosphatase 69 U/L (46-116) Creatine Kinase 44 U/L (26-192) C-Reactive Protein, Quantitative 32.1 mg/L (0-3.3) H Total Protein 7.0 g/dL (6.4-8.2) Albumin 3.3 g/dL (3.4-5.0) L Albumin/Globulin Ratio 0.9 (1.0-1.7) L Lipase 177 U/L (73-393) Laboratory Tests 05/08/20 20:03 Laboratory Tests 05/08/20 20:03 Vital Signs: Vital Signs Date Time Temp Pulse Resp B/P (MAP) Pulse Ox O2 Delivery O2 Flow Rate FiO2 05/08/20 19:18 98.5 81 22 140/98 (112) 98 Room Air 98.5 (JUSTIN HERNANDEZ STRAP FOLDING MACHINE OPERATOR) EKG: EKG: [] (JUSTIN HERNANDEZ APRN) Radiology/Procedures: Radiology/Procedures: PROCEDURE: CHEST AP ONLY EXAM: CHEST ONE VIEW. HISTORY: Cough. COMPARISON: 08/19/2019. FINDINGS: A frontal view of the chest is obtained. There are no confluent infiltrates. There are calcified granulomas bilaterally. There is no pneumothorax or pleural effusion. The heart is not enlarged. There are atherosclerotic calcifications of the aorta. There are changes of internal fixation of a right humeral diaphyseal fracture. A moderate hiatal hernia is suspected. IMPRESSION: 1. Moderate hiatal hernia. 2. No confluent infiltrates. [] (JUSTIN HERNANDEZ APRN) Course & Med Decision Making: Course & Med Decision Making Pertinent Labs and Imaging studies reviewed. (See chart for details) Patient is a 89-year-old female who presented emergency department with co mplaints of nausea, vomiting, diarrhea, cough, and a sore throat that began about 5 days ago. Patient states that had spent time with her son the weekend before last, he informed her that he tested positive for COVID-19 this week. Chest x-ray revealed no acute findings. CBC was unremarkable. D-dimer was not elevated. Patient CMP revealed a sodium of 135, BUN of 54, creatinine of 1.9, which is consistent for patient's history, blood sugar was 186, AST is 38, C-reactive protein is 32.1; UA is unremarkable Patient was provided with quarantine instructions and advised to follow those instructions at home. Return to the emergency room if symptoms worsen. Patient verbalized an understanding of home care, medications, follow-up, and return to ED instructions and was in agreement with the plan of care. [] (JUSTIN HERNANDEZ APRN) Dragon Disclaimer: Dragon Disclaimer: Complete ROS is negative unless otherwise noted in HPI. (JUSTIN HERNANDEZ STRAP FOLDING MACHINE OPERATOR) Departure Departure Impression: Primary Impression: Person under investigation for COVID-19 Disposition: 01 HOME, SELF-CARE Condition: STABLE Referrals: ERVIN JOE MD (PCP) Patient Instructions: Nausea and Vomiting, [id number] Additional Instructions: Fill prescriptions and use them as directed. Recommend clear fluids for the next 24 hours. Then you may advance to bland foods such as bananas, rice, applesauce, and dry toast. Follow the quarantine instructions provided, return to the emergency room if your symptoms worsen. You have been tested for or diagnosed with COVID-19. It is an infection caused by a new type of coronavirus. COVID-19 will cause cold-like or mild flu symptoms in most. It can cause more severe symptoms like problems breathing in some. There is no treatment for COVID-19. The body will clear the infection over time. Self-care will help to ease discomfort. Steps to Take: Self-Care Rest as needed. Healthy habits may help you feel better. Steps include: Choose healthy foods including fruits and vegetables. Drink water throughout the day. Get plenty of sleep each night. If you smoke, try to quit. It may ease breathing. Avoid alcohol. Keep Others Healthy The virus can spread to others. Droplets are released every time you sneeze or cough. The droplets can get into the mouth, nose, or eyes of people near you and lead to infection. To lower the chances of spreading COVID-19 to others: Stay at home until your doctor has said it is safe to leave. If you tested positive this will mean staying isolated until both of the following are true: At least 7 days have passed since the start of illness. You are free of fever for at least 72 hours without the use of medicine. During this time: - Avoid public areas, events, or transportation. Do not return to work or school until your doctor has said it is safe to do so. - Call ahead if you need to go to a medical center. Let them know you may have COVID-19. It will help them guide you where to go. They may also ask you to wear a facemask when you come to the office. - If you call for emergency medical services, let them know you may have COVID- 19. While at home: - Try to avoid close contact with others. Stay about 6 feet away. - If possible, spend most of your time in a separate room from others. - Use a face mask if you will be in close contact with others such as sharing a room or vehicle. - Have someone wipe down common surfaces in the home. Use household plug machine operator every day on areas like doorknobs, counters, or sinks. - Cough or sneeze into a tissue. Throw the tissue away right after use. If a tissue is not available, cough or sneeze into your elbow. - Wash your hands often. Wash them after sneezing or coughing. Use soap and water and wash for at least 20 seconds. Alcohol based hand machine heddle cleaner can be used if soap and water is not available. - Do not prepare food for others. Avoid sharing personal items like forks, spoons, or toothbrushes. - Avoid close contact with pets while you are sick. There is no evidence of the virus passing to pets. This is a safety step until more is known about this virus. Isolation can be frustrating. Social interaction can help. Keep in touch with friends and family through phone and tech options. You can still interact with others in your home, just keep a safe distance of about 6 feet. Follow-up: Your doctors office will check in with you to see if there are any changes in your health. You may be asked to keep track of symptoms to share with them. They will also let you know when you are clear to be in public again. Problems to Look Out For: Contact your doctor if your recovery is not going as you expect. Get emergency care if you have problems such as: - Trouble breathing - Nonstop chest pain or pressure - Changes in awareness, confusion, or problems waking - Lips or face have bluish color - Worsening of symptoms If you think you have an emergency, call for emergency medical services right aw ay. As taken from [facility] Ondansetron Hcl (ONDANSETRON HCL) 4 Mg Tablet 1 TAB PO PRN Q6HRS PRN for NAUSEA/VOMITING for 3 Days, #10 TAB 0 Refills Prov: JUSTIN HERNANDEZ APRN 05/08/20 Justicifation of Admission Dx: Justifications for Admission: Justification of Admission Dx: N/A (JUSTIN HERNANDEZ APRN) Attending Signature Attending Signature I have reviewed the PA/SURGERY SCHEDULING COORDINATOR's note and plan of care. I was available for consultation as needed during the patient's visit in the emergency department. I agree with the clinical impression, plan, and disposition. (OSMANY DAVEY DO) JUSTIN HERNANDEZ APRN May 08, 2020 21:11 OSMANY DAVEY DO May 09, 2020 16:55
[2020-05-08 21:30] VITALS: BP 167/74
[2020-05-08] MEDS ORDERED: ONDANSETRON PF 4 MG/2 ML VIAL. IV ONE (21:30)
[2020-05-08 21:48] LABS: BILIRUBIN,URINE SMALL (NEG); CLARITY,URINE CLEAR; COLOR,URINE YELLOW; NITRITE,URINE NEGATIVE (NEG); PROTEIN,URINE 30 mg/dL (NEG-TRACE); UROBILINOGEN,URINE 0.2 mg/dL (0.2 mg/dL)
[2020-05-08 21:53] LABS: AMORPHOUS SEDIMENT,UR PRESENT /HPF; HYALINE CASTS, URINE MODERATE /HPF
[2020-05-08 21:54] LABS: BACTERIA,URINE 0 /HPF (0-FEW); RBC,URINE 0 /HPF (0-2); WBC,URINE 0 /HPF (0-4)
[2020-05-08] MEDS ORDERED: ONDA-84 PO (22:41)
--- NOTE | 2020-05-10 10:46 | NUR ---
IP: Informed pt of positive COVID results and need to quarantine for 14 days. Pt and daughter verbalized understanding.
== END 2020-05-08 22:59 | disposition home or self-care (01) ==
LOC: ER 18:39
DX: U07.1 COVID-19 (principal); K44.9 Diaphragmatic hernia without obstruction or gangrene; E11.9 Type 2 diabetes mellitus without complications; E78.00 Pure hypercholesterolemia, unspecified; K21.9 Gastro-esophageal reflux disease without esophagitis; I10 Essential (primary) hypertension; Z87.440 Personal history of urinary (tract) infections; Z88.8 Allergy status to other drugs, medicaments and biological substances
CPT/HCPCS: 36415; 71045; 80053; 81001; 82550; 82728; 83690; 83735; 85025; 85379; 86140; 99284; C9803; U0003

== ENCOUNTER → 2020-06-15 | Outpatient (CLI) | payer MEDICARE ==
[~2020-06-15] MED LIST changes: +AMLO-187 PO; -AMLO10TA8 PO; +ONDA-84 PO
--- NOTE | 2020-06-15 12:29 | RAD ---
PA and lateral chest x-ray compared to portable chest radiograph dated May 08, 2020 for shortness of breath. FINDINGS: Bilateral calcified lung nodules are redemonstrated. There is coarsening of interstitial markings diffusely which is new and may reflect initial pulmonary edema or developing interstitial infiltrate. No pleural effusions. Heart size mildly enlarged but stable. Bones are diffusely osteopenic. There is exaggerated kyphosis. There is extensive aortic atherosclerosis. There is been prior cholecystectomy. IMPRESSION: 1. Interval coarsening of interstitial lung markings diffusely which may reflect developing interstitial pulmonary edema or interstitial infiltrate. 2. Otherwise stable chest x-ray. Electronically signed by: Madi Olson MD (06/15/2020 12:25 PM) [id number]
--- NOTE | 2020-06-15 13:16 | RAD ---
EXAM: PULMONARY PERFUSION IMG PARTIC 06/15/2020 12:00 AM CLINICAL INDICATION:Shortness of breath for one week COMPARISON:Chest radiograph 06/15/2020 TECHNIQUE:The patient was administered 5.5 mCi technetium 99 labeled MAA and perfusion imaging was performed in multiple planes. FINDINGS:There are multiple segmental defects in the left lung. There is overall decreased radiotracer uptake in the right lung compared to left on lateral projection. Possible small defects in the right lung. These are predominantly mismatched compared to chest radiograph from today, which only has a small focal opacity in the right lung base. IMPRESSION:High probability for acute pulmonary embolism. Attempted to notify Dr. Hutson at 1:10 PM on 06/15/2020 Electronically signed by: Nereida Rodrigues MD (06/15/2020 1:13 PM) [id number]
== END ==
LOC: CT 10:44
PROVIDERS: ATTEND Nurse Practitioner Family
DX: I70.0 Atherosclerosis of aorta (principal); R91.8 Other nonspecific abnormal finding of lung field; I51.7 Cardiomegaly; M85.88 Other specified disorders of bone density and structure, other site; M40.294 Other kyphosis, thoracic region; Z90.49 Acquired absence of other specified parts of digestive tract
CPT/HCPCS: 71046; 78580; A9540

== ENCOUNTER → 2020-06-28 | Outpatient (CLI) | payer MEDICARE ==
--- NOTE | 2020-06-28 14:56 | CARD ---
MR#: [id number] Date of Study: 06/28/2020 Ordering Physician: ERVIN JOE, Referring Physician: ERVIN JOE, Tech: Leana Medina RDCS APPROVED REPORT EXAM: Two-dimensional and M-mode echocardiogram with Doppler and color Doppler. Other Information Quality : Good INDICATION Pulmonary Emboli 2D DIMENSIONS RVDd2.9 (2.9-3.5cm)Left Atrium(2D)4.6 (1.6-4.0cm) IVSd1.4 (0.7-1.1cm)Aortic Root(2D)2.8 (2.0-3.7cm) LVDd4.1 (3.9-5.9cm)LVOT Diameter2.0 (1.8-2.4cm) PWd1.0 (0.7-1.1cm)LVDs3.5 (2.5-4.0cm) FS (%) 30.0 %SV23.7 ml LVEF(%)60.0 (>50%) Aortic Valve AoV Peak Robert.162.3cm/sAoV VTI30.2cm AO Peak GR.10.5mmHgLVOT Peak Robert.171.9cm/s AO Mean GR.6mmHgAVA (VMAX)3.45cm2 MARY (VTI)3.50cm2 Mitral Valve MV E Eqhownnt94.6cm/sMV DECEL LKTM038lw MV A Dctigsor410.1cm/sE/A Ratio0.7 Tricuspid Valve TR P. Aiwklndi630fr/sRAP RYIAIZDV0luTf TR Peak Gr.03pnZyVWOX23qjRn Pulmonary Vein S1 Jupjtprr77.4cm/sD2 Gyifhryr12.9cm/s LEFT VENTRICLE The left ventricle is normal size. There is mild concentric left ventricular hypertrophy. The left ve ntricular systolic function is normal and the ejection fraction is within normal range. The Ejection Fraction is 60-65%. There is normal LV segmental wall motion. Transmitral Doppler flow pattern is Gra de I-abnormal relaxation pattern. RIGHT VENTRICLE The right ventricle is normal size. The right ventricular systolic function is normal. ATRIA The left atrium is mildly dilated. The right atrium size is normal. The interatrial septum is intact with no evidence for an atrial septal defect or patent foramen ovale as noted on 2-D or Doppler imagi ng. AORTIC VALVE The aortic valve is calcified but opens well. Doppler and Color Flow revealed no significant aortic r egurgitation. There is no significant aortic valvular stenosis. MITRAL VALVE Posterior mitral annular calcification is mild to moderate. There is no evidence of mitral valve prol apse. There is no mitral valve stenosis. Doppler and Color-flow revealed trace mitral regurgitation. TRICUSPID VALVE The tricuspid valve is normal in structure and function. Doppler and Color Flow revealed trace tricus pid regurgitation. The PA pressure was estimated at 40 mmHg. There is no tricuspid valve stenosis. PULMONIC VALVE The pulmonary valve is normal in structure and function. Doppler and Color Flow revealed trace pulmon ic valvular regurgitation. There is no pulmonic valvular stenosis. GREAT VESSELS The aortic root is normal in size. The ascending aorta is normal in size. The IVC is normal in size a nd collapses >50% with inspiration. PERICARDIAL EFFUSION There is no evidence of significant pericardial effusion. Critical Notification Critical Value: No <Conclusion> The left ventricle is normal size. The left ventricular systolic function is normal and the ejection fraction is within normal range. The Ejection Fraction is 60-65%. There is mild concentric left ventricular hypertrophy. Doppler and Color Flow revealed no significant aortic regurgitation. There is no significant aortic valvular stenosis. Doppler and Color-flow revealed trace mitral regurgitation. Doppler and Color Flow revealed trace tricuspid regurgitation. The PA pressure was estimated at 40 mmHg. Signed by : Navi Headley MD Electronically Approved : 06/28/2020 14:55:38
== END ==
LOC: CARD 12:45
PROVIDERS: ATTEND Internal Medicine
DX: I08.0 Rheumatic disorders of both mitral and aortic valves (principal); I26.99 Other pulmonary embolism without acute cor pulmonale
CPT/HCPCS: 93306

== ENCOUNTER 2020-07-21 11:29 | Emergency (ER) | payer MEDICARE ==
[~2020-07-21] VITALS: Ht 154.9 cm; Wt 68.1 kg
[2020-07-21 12:10] LABS: BILIRUBIN,URINE NEGATIVE (NEG); CLARITY,URINE CLEAR; COLOR,URINE YELLOW; NITRITE,URINE NEGATIVE (NEG); PROTEIN,URINE 100 mg/dL (NEG-TRACE); UROBILINOGEN,URINE 0.2 mg/dL (0.2 mg/dL)
[2020-07-21 12:15] LABS: BASO # 0.1 x10^3/uL (0.0-0.2); BASO % 1 % (0-3); EOS # 0.1 x10^3/uL (0.0-0.7); EOS % 1 % (0-3); HEMATOCRIT 35.7 % (36.0-47.0); HEMOGLOBIN 11.8 g/dL (12.0-15.5); LYMPH # 2.2 x10^3/uL (1.0-4.8); LYMPH % 18 % (24-48); MEAN CORPUSCULAR HEMOGLOBIN 28 pg (25-35); MEAN CORPUSCULAR HGB CONC 33 g/dL (31-37); MEAN CORPUSCULAR VOLUME 84 fL (79-100); MONO # 0.9 x10^3/uL (0.0-1.1); MONO % 7 % (0-9); NEUT # 9.1 x10^3/uL (1.8-7.7); NEUT % 73 % (31-73); PLATELET COUNT 339 x10^3/uL (140-400); RED BLOOD COUNT 4.25 x10^6/uL (3.50-5.40); RED CELL DISTRIBUTION WIDTH 14.9 % (11.5-14.5); WHITE BLOOD COUNT 12.4 x10^3/uL (4.0-11.0)
[2020-07-21 12:20] LABS: CALCIUM 8.9 mg/dL (8.5-10.1); CREATININE 1.5 mg/dL (0.6-1.0); GFR 32.8; POTASSIUM 3.9 mmol/L (3.5-5.1)
[2020-07-21 12:24] LABS: BACTERIA,URINE 0 /HPF (0-FEW); RBC,URINE 0 /HPF (0-2)
[2020-07-21 12:26] LABS: ALBUMIN 3.3 g/dL (3.4-5.0); ALBUMIN/GLOBULIN RATIO 0.8 (1.0-1.7); TOTAL BILIRUBIN 0.5 mg/dL (0.2-1.0); TOTAL PROTEIN 7.3 g/dL (6.4-8.2)
[2020-07-21] MEDS ORDERED: IOHEXOL 240 MG/ML 50ML VIAL. PO ONE (12:30)
--- NOTE | 2020-07-21 13:02 | ED.ADGEN ---
Past Medical History Past Medical History: Cancer, Diabetes-Type II, Diverticulitis, High Cholesterol, Hypertension, UTI Additional Past Medical Histor: CURRENT/HX OF BREAST CA Past Surgical History: Knee Replacement Additional Past Surgical Histo: RIGHT HUMERUS,LEFT BREAST LUMPECTOMY Smoking Status: Never Smoker Alcohol Use: None Drug Use: None General Adult EDM: Chief Complaint: ABDOMINAL PAIN HPI: HPI: Patient is an 89-year-old female who presents to the emergency room complaining of left sided abdominal pain for the last 2 days. It is progressively gotten worse and became severe today. She has had some diarrhea with this. She has some nausea without vomiting. She has not had any fevers. She denies shortness of breath, URI symptoms, fevers, chills, sweats, difficulty eating. Review of Systems: Review of Systems: Complete ROS is negative unless otherwise documented in HPI Current Medications: Current Medications Medications (Trade) Dose Ordered Sig/[place] Start Time Stop Time Status Last Admin Dose Admin Iohexol (Omnipaque 240 Mg/ml) 30 ml 1X ONCE 07/21/20 12:30 07/21/20 12:31 DC 07/21/20 12:30 30 ML Morphine Sulfate (Morphine Sulfate) 5 mg 1X ONCE 07/21/20 13:30 07/21/20 13:31 DC 07/21/20 13:25 5 MG Ondansetron HCl (Zofran) 4 mg 1X ONCE 07/21/20 13:30 07/21/20 13:31 DC Allergies: Allergies: Allergies Coded Allergies Type Severity Reaction Last Updated Verified labetalol Allergy Intermediate 05/05/17 Yes Physical Exam: PE: General: Awake, alert, NAD. Well Nourished, well hydrated. Cooperative HEENT: Atraumatic, EOMI, PERRL, airway patent, moist oral mucosa Neck: Supple, trachea midline Respiratory: CTA bilaterally, normal effort, no wheezing/crackles CV: RRR, no murmur, cap refill <2 GI: Soft, nondistended, left sided abd tenderness, no masses MSK: No obvious deformities Skin: Warm, dry, intact Neuro: A&O x3, speech NL, sensory and motor grossly intact, no focal deficits Psych: Normal affect, normal mood, not suicidal or homicidal Current Patient Data: Labs: Laboratory Tests Test 07/21/20 11:42 07/21/20 11:50 Urine Collection Type Unknown Urine Color Yellow Urine Clarity Clear Urine pH 6.0 (<5.0-8.0) Urine Specific [place] 1.015 (1.000-1.030) Urine Protein 100 mg/dL (NEG-TRACE) Urine Glucose (UA) 250 mg/dL (NEG) Urine Ketones (Stick) Negative mg/dL (NEG) Urine Blood Negative (NEG) Urine Nitrite Negative (NEG) Urine Bilirubin Negative (NEG) Urine Urobilinogen Dipstick 0.2 mg/dL (0.2 mg/dL) Urine Leukocyte Esterase Small (NEG) Urine RBC 0 /HPF (0-2) Urine WBC 5-10 /HPF (0-4) Urine Squamous Epithelial Cells Few /LPF Urine Bacteria 0 /HPF (0-FEW) White Blood Count 12.4 x10^3/uL (4.0-11.0) H Red Blood Count 4.25 x10^6/uL (3.50-5.40) Hemoglobin 11.8 g/dL (12.0-15.5) L Hematocrit 35.7 % (36.0-47.0) L Mean Corpuscular Volume 84 fL (79-100) Mean Corpuscular Hemoglobin 28 pg (25-35) Mean Corpuscular Hemoglobin Concent 33 g/dL (31-37) Red Cell Distribution Width 14.9 % (11.5-14.5) H Platelet Count 339 x10^3/uL (140-400) Neutrophils (%) (Auto) 73 % (31-73) Lymphocytes (%) (Auto) 18 % (24-48) L Monocytes (%) (Auto) 7 % (0-9) Eosinophils (%) (Auto) 1 % (0-3) Basophils (%) (Auto) 1 % (0-3) Neutrophils # (Auto) 9.1 x10^3/uL (1.8-7.7) H Lymphocytes # (Auto) 2.2 x10^3/uL (1.0-4.8) Monocytes # (Auto) 0.9 x10^3/uL (0.0-1.1) Eosinophils # (Auto) 0.1 x10^3/uL (0.0-0.7) Basophils # (Auto) 0.1 x10^3/uL (0.0-0.2) Sodium Level 137 mmol/L (136-145) Potassium Level 3.9 mmol/L (3.5-5.1) Chloride Level 103 mmol/L (98-107) Carbon Dioxide Level 23 mmol/L (21-32) Anion Gap 11 (6-14) Blood Urea Nitrogen 29 mg/dL (7-20) H Creatinine 1.5 mg/dL (0.6-1.0) H Estimated GFR (Cockcroft-Gault) 32.8 BUN/Creatinine Ratio 19 (6-20) Glucose Level 198 mg/dL (70-99) H Calcium Level 8.9 mg/dL (8.5-10.1) Total Bilirubin 0.5 mg/dL (0.2-1.0) Aspartate Amino Transferase (AST) 13 U/L (15-37) L Alanine Aminotransferase (ALT) 12 U/L (14-59) L Alkaline Phosphatase 78 U/L (46-116) Total Protein 7.3 g/dL (6.4-8.2) Albumin 3.3 g/dL (3.4-5.0) L Albumin/Globulin Ratio 0.8 (1.0-1.7) L Lipase 163 U/L (73-393) Laboratory Tests 07/21/20 11:50 Laboratory Tests 07/21/20 11:50 Vital Signs: Vital Signs Date Time Temp Pulse Resp B/P (MAP) Pulse Ox O2 Delivery O2 Flow Rate FiO2 07/21/20 13:25 20 96 Room Air 07/21/20 12:01 97.8 87 178/94 (122) 97.8 EKG: EKG: [] Heart Score: Risk Factors: Risk Factors: DM, Current or recent (<one month) smoker, HTN, HLP, family history of CAD, obesity. Risk Scores: Score 0 - 3: 2.5% MACE over next 6 weeks - Discharge Home Score 4 - 6: 20.3% MACE over next 6 weeks - Admit for Clinical Observation Score 7 - 10: 72.7% MACE over next 6 weeks - Early Invasive Strategies Radiology/Procedures: Radiology/Procedures: [] Course & Med Decision Making: Course & Med Decision Making Pertinent Labs and Imaging studies reviewed. (See chart for details) Patient is a 89 year-old female with a history of diverticulitis who presents to the Emergency Room complaining of abdominal pain and diarrhea. On exam, patient has left-sided abdominal tenderness. Due to patients history, age, and exam work up will need to be done to evaluate for intra-abdominal pathology. Work up ordered includes CBC, CMP, lipase, UA, CT abdomen and pelvis. Patient's pain does not epigastric and a cardiac evaluation will not be needed for atypical pain. Ddx includes diverticulitis, colitis, kidney stone, pyelonephritis. Work up was reviewed and patient will be treated for constipation. Patient's test results and vitals while in the ED were fully reviewed and discussed with the patient. Patient is stable and at this time does not need admission to the hospital. We have discussed strict return precautions and the importance of following up with their Primary Care Physician. Patient stated understanding and was given an opportunity to ask any questions. Patient is in agreement with plan. Dragon Disclaimer: Dragon Disclaimer: This electronic medical record was generated, in whole or in part, using a voice recognition dictation system. Departure Departure Impression: Primary Impression: Diverticulitis Additional Impression: Constipation Disposition: HOME SELF CARE/HOMELESS Condition: STABLE Referrals: ERVIN JOE MD (PCP) Patient Instructions: Constipation, Adult Scripts Magnesium Hydroxide (MILK OF MAGNESIA) 400 Mg/5 Ml Oral.susp 400 MG PO QHS for 5 Days, #1 MISC Prov: LULA CROCKER MD 07/21/20 Docusate Sodium (COLACE) 100 Mg Capsule 1 CAP PO BID for 15 Days, #30 CAP 0 Refills Prov: LULA CROCKER MD 07/21/20 Amoxicillin/Potassium Clav (AUGMENTIN 500-125 TABLET) 1 Each Tablet 1 TAB PO BID for 5 Days, #10 TAB 0 Refills Prov: LULA CROCKER MD 07/21/20 Problem Qualifiers LULA CROCKER MD Jul 21, 2020 13:02
[2020-07-21] MEDS ORDERED: ONDANSETRON PF 4 MG/2 ML VIAL. IVP ONE ×2 (13:30)
[2020-07-21] MEDS ORDERED: MORPHINE SULFATE 10 MG/ML VIAL. IV ONE (13:30)
--- NOTE | 2020-07-21 13:44 | RAD ---
EXAM: CT Abdomen and Pelvis without IV contrast CLINICAL HISTORY: Abdominal pain COMPARISON: 09/17/2018 05/06/2018 TECHNIQUE: Helical CT of the abdomen and pelvis was performed without the administration of IV contrast. Axial, coronal and sagittal reformatted images were generated. ---PQRS compliance statement - One or more of the following individualized dose reduction techniques were utilized for this study: 1. Automated exposure control 2. Adjustment of the mA and/or kV according to patient size 3. Use of iterative reconstruction technique--- FINDINGS: Lack of intravenous contrast limits evaluation of solid organs, vasculature, and lymph nodes. Lower chest: Calcified granuloma lingula. Linear and bandlike opacities middle lobe. 7 mm nodule is seen in the middle lobe. Moderate hiatal hernia. Heart is enlarged. Mitral annular and coronary calcifications are seen. Abdomen and pelvis: Liver and biliary system: Calcified granuloma are seen within the liver. Cholecystectomy clips. No biliary duct dilatation. Spleen: Calcified granuloma are seen within the spleen. Pancreas: Unremarkable Adrenal glands: Unremarkable Kidneys: Multiple bilateral renal cysts are seen. Angiomyolipoma lower pole right kidney. High density foci bilaterally likely hemorrhagic or proteinaceous cyst. No hydronephrosis or hydroureter. Lymph nodes/retroperitoneum: No abdominal or pelvic lymphadenopathy. Aortic calcifications are seen. Vessels: Atherosclerotic calcifications are seen throughout the aorta and iliacs. Aorta is normal in caliber. Bowel/Peritoneal cavity: Moderate to large volume colonic stool content is seen. No small or large bowel dilatation. Extensive colonic diverticulosis throughout the sigmoid colon. No CT evidence for acute diverticulitis. No abdominal or pelvic ascites. Abdominal wall: Trace fat-containing periumbilical hernia is seen. Ventral abdominal hernia changes are noted. Bladder: Unremarkable. Bones: Degenerative changes of spine are seen. Hip joint degenerative changes are noted. L5 pars defects with grade 1 anterolisthesis of L5 on S1. No aggressive osseous lesion. IMPRESSION: 1. Colonic diverticulosis without evidence for acute diverticulitis. 2. Moderate to large volume colonic stool content to be correlated for possible constipation. No bowel obstruction. 3. Right middle lobe lung nodule measures 7 mm. Further evaluation with dedicated CT chest is recommended. Electronically signed by: Surya Romero MD (07/21/2020 1:41 PM) [facility]
[2020-07-21] MEDS ORDERED: MAGN400O7 PO (14:11)
[2020-07-21] MEDS ORDERED: AMOX1TAB58 PO (14:11)
[2020-07-21] MEDS ORDERED: DOCU-109 PO (14:11)
[2020-07-21 14:19] VITALS: BP 168/79
== END 2020-07-21 14:58 | disposition home or self-care (01) ==
LOC: ER 11:29
DX: K57.92 Diverticulitis of intestine, part unspecified, without perforation or abscess without bleeding (principal); K59.00 Constipation, unspecified; E11.9 Type 2 diabetes mellitus without complications; E78.00 Pure hypercholesterolemia, unspecified; I10 Essential (primary) hypertension; Z88.8 Allergy status to other drugs, medicaments and biological substances
CPT/HCPCS: 36415; 74176; 80053; 81001; 83690; 85025; 96374; 96375; 99284; J2270; J2405; Q9966; 99285-25

== ENCOUNTER 2020-08-02 13:06 | Observation (INO) | payer MEDICARE ==
[~2020-08-02] VITALS: Ht 157.5 cm; Wt 56.3 kg
[~2020-08-02 13:06] MED LIST changes: +AMOX1TAB58 PO; +DOCU-109 PO; +MAGN400O7 PO
--- NOTE | 2020-08-02 13:57 | ED.ADGEN ---
Past Medical History Past Medical History: Cancer, Diabetes-Type II, Diverticulitis, High Cholesterol, Hypertension, UTI Additional Past Medical Histor: CURRENT/HX OF BREAST CA Past Surgical History: Knee Replacement Additional Past Surgical Histo: RIGHT HUMERUS,LEFT BREAST LUMPECTOMY Smoking Status: Never Smoker Alcohol Use: None Drug Use: None General Adult EDM: Chief Complaint: HEADACHE HPI: HPI: Patient is a pleasant 89-year-old female who arrives ambulatory to the emergency department complaining of a headache which began yesterday evening. Patient describes the pain as constant and starting at the top of her head and radiating down her head into her neck. The patient states this pain has gotten progressively worse since yesterday evening it is now the worst headache she is ever experienced. The patient does report to a history of coronavirus earlier this year and was recently exposed to a relative over the who has recently tested positive. Despite this the patient denies any chest pain, shortness of air or fever. She further denies any neck stiffness. Additionally she denies any neurological or sensory deficit associated with this headache. She is awake, alert and neurologically intact. Review of Systems: Review of Systems: Constitutional: Denies fever or chills. [] Eyes: Denies change in visual acuity. [] HENT: Denies nasal congestion or sore throat. [] Respiratory: Denies cough or shortness of breath. [] Cardiovascular: Denies chest pain or edema. [] GI: Denies abdominal pain, nausea, vomiting, bloody stools or diarrhea. [] : Denies dysuria. [] Musculoskeletal: Reports neck pain. Denies back pain or joint pain. [] Integument: Denies rash. [] Neurologic: Reports headache, focal weakness or sensory changes. [] Endocrine: Denies polyuria or polydipsia. [] Lymphatic: Denies swollen glands. [] Psychiatric: Denies depression or anxiety. [] Current Medications: Current Medications Medications (Trade) Dose Ordered Sig/[place] Start Time Stop Time Status Last Admin Dose Admin Morphine Sulfate (Morphine Sulfate) 4 mg 1X ONCE 08/02/20 15:00 08/02/20 15:01 DC 08/02/20 15:00 4 MG Ondansetron HCl (Zofran) 4 mg 1X ONCE 08/02/20 15:00 08/02/20 15:01 DC 08/02/20 14:59 4 MG Allergies: Allergies: Allergies Coded Allergies Type Severity Reaction Last Updated Verified labetalol Allergy Intermediate 05/05/17 Yes Physical Exam: PE: Constitutional: Well developed, well nourished, no acute distress, non-toxic appearance. [] HENT: Normocephalic, atraumatic, bilateral external ears normal, oropharynx moist, no oral exudates, nose normal. [] Eyes: PERRLA, EOMI, conjunctiva normal, no discharge. [] Neck: Normal range of motion, no tenderness, supple, no stridor. [] Cardiovascular:Heart rate regular rhythm, no murmur [] Lungs & Thorax: Bilateral breath sounds clear to auscultation [] Abdomen: Bowel sounds normal, soft, no tenderness, no masses, no pulsatile masses. [] Skin: Warm, dry, no erythema, no rash. [] Back: No tenderness, no CVA tenderness. [] Extremities: No tenderness, no cyanosis, no clubbing, ROM intact, no edema. [] Neurologic: Alert and oriented X 3, normal motor function, normal sensory function, no focal deficits noted. [] Psychologic: Affect normal, judgement normal, mood normal. [] Current Patient Data: Labs: Laboratory Tests Test 08/02/20 13:52 White Blood Count 9.5 x10^3/uL (4.0-11.0) Red Blood Count 4.34 x10^6/uL (3.50-5.40) Hemoglobin 11.9 g/dL (12.0-15.5) L Hematocrit 36.6 % (36.0-47.0) Mean Corpuscular Volume 84 fL (79-100) Mean Corpuscular Hemoglobin 27 pg (25-35) Mean Corpuscular Hemoglobin Concent 32 g/dL (31-37) Red Cell Distribution Width 14.5 % (11.5-14.5) Platelet Count 309 x10^3/uL (140-400) Neutrophils (%) (Auto) 70 % (31-73) Lymphocytes (%) (Auto) 20 % (24-48) L Monocytes (%) (Auto) 8 % (0-9) Eosinophils (%) (Auto) 1 % (0-3) Basophils (%) (Auto) 1 % (0-3) Neutrophils # (Auto) 6.7 x10^3/uL (1.8-7.7) Lymphocytes # (Auto) 1.9 x10^3/uL (1.0-4.8) Monocytes # (Auto) 0.7 x10^3/uL (0.0-1.1) Eosinophils # (Auto) 0.1 x10^3/uL (0.0-0.7) Basophils # (Auto) 0.1 x10^3/uL (0.0-0.2) Prothrombin Time 13.6 SEC (11.7-14.0) Prothrombin Time INR 1.1 (0.8-1.1) Activated Partial Thromboplast Time 30 SEC (24-38) Sodium Level 137 mmol/L (136-145) Potassium Level 4.1 mmol/L (3.5-5.1) Chloride Level 104 mmol/L (98-107) Carbon Dioxide Level 25 mmol/L (21-32) Anion Gap 8 (6-14) Blood Urea Nitrogen 23 mg/dL (7-20) H Creatinine 1.3 mg/dL (0.6-1.0) H Estimated GFR (Cockcroft-Gault) 38.7 BUN/Creatinine Ratio 18 (6-20) Glucose Level 164 mg/dL (70-99) H Calcium Level 9.2 mg/dL (8.5-10.1) Total Bilirubin 0.7 mg/dL (0.2-1.0) Aspartate Amino Transferase (AST) 17 U/L (15-37) Alanine Aminotransferase (ALT) 16 U/L (14-59) Alkaline Phosphatase 71 U/L (46-116) Troponin I Quantitative < 0.017 ng/mL (0.000-0.055) Total Protein 7.1 g/dL (6.4-8.2) Albumin 3.1 g/dL (3.4-5.0) L Albumin/Globulin Ratio 0.8 (1.0-1.7) L Laboratory Tests 08/02/20 13:52 Laboratory Tests 08/02/20 13:52 Vital Signs: Vital Signs Date Time Temp Pulse Resp B/P (MAP) Pulse Ox O2 Delivery O2 Flow Rate FiO2 08/02/20 15:00 16 93 Room Air 08/02/20 13:30 97.5 76 208/88 (128) 97.5 203/95 (131) EKG: EKG: EKG was obtained at 1345 hrs. and revealed a normal sinus rhythm with a ventricular rate of 77 bpm with any signs of acute ST/T wave changes denoting ischemia. There is a leftward axis with otherwise normal-appearing intervals. [] Heart Score: HEART Score for Chest Pain: HEART Score for Chest Pain Response (Comments) Value History Moderately Suspicious 1 ECG Normal 0 Age > 65 2 Risk Factors >3 Risk Factors or Hx CAD 2 Troponin < Normal Limit 0 Total 5 Risk Factors: Risk Factors: DM, Current or recent (<one month) smoker, HTN, HLP, family history of CAD, obesity. Risk Scores: Score 0 - 3: 2.5% MACE over next 6 weeks - Discharge Home Score 4 - 6: 20.3% MACE over next 6 weeks - Admit for Clinical Observation Score 7 - 10: 72.7% MACE over next 6 weeks - Early Invasive Strategies Radiology/Procedures: Radiology/Procedures: [][facility] [address] [place] [address] IMAGING REPORT Signed PATIENT: NATHANIEL SCHMID ACCOUNT: [id number] : 1930 LOCATION: ER AGE: 89 SEX: F EXAM STATUS: REG ER ORD. PHYSICIAN: MAY VILLA DO REASON: elevated blood pressure PROCEDURE: CHEST AP ONLY Examination: CHEST AP ONLY History: Reason: elevated blood pressure / Spl. Instructions: / History: Comparison: 11/22/2017, 08/19/2019. Findings: AP portable upright frontal view of the chest was obtained. Small right basilar densities are unchanged compared to prior exams. The cardiomediastinal silhouette is normal. Lungs are clear. There is no pneumothorax. No pleural effusion is appreciated. No acute bone abnormality. IMPRESSION: No acute cardiopulmonary process. Electronically signed by: Gennaro Luis MD (08/02/2020 2:33 PM) [id number] DICTATED and SIGNED BY: GENNARO LUIS MD DATE: 08/02/20 [id number] 0 Impression: [facility] [address] [place] [address] IMAGING REPORT Signed PATIENT: NATHANIEL SCHMID ACCOUNT: [id number] : 1930 LOCATION: ER AGE: 89 SEX: F EXAM STATUS: REG ER ORD. PHYSICIAN: MAY VILLA DO REASON: elevated blood pressure PROCEDURE: CHEST AP ONLY Examination: CHEST AP ONLY History: Reason: elevated blood pressure / Spl. Instructions: / History: Comparison: 11/22/2017, 08/19/2019. Findings: AP portable upright frontal view of the chest was obtained. Small right basilar densities are unchanged compared to prior exams. The cardiomediastinal silhouette is normal. Lungs are clear. There is no pneumothorax. No pleural effusion is appreciated. No acute bone abnormality. IMPRESSION: No acute cardiopulmonary process. Electronically signed by: Gennaro Luis MD (08/02/2020 2:33 PM) [id number] DICTATED and SIGNED BY: GENNARO LUIS MD DATE: 08/02/20 [id number] 0 [facility] [address] [place] [address] IMAGING REPORT Signed PATIENT: NATHANIEL SCHMID ACCOUNT: [id number] : 1930 LOCATION: ER AGE: 89 SEX: F EXAM STATUS: REG ER ORD. PHYSICIAN: MAY VILLA DO REASON: headache PROCEDURE: CT HEAD WO CONTRAST INDICATION: Reason: headache / Spl. Instructions: / History: COMPARISON: None. TECHNIQUE: Axial CT images obtained through the head without intravenous contrast. One or more of the following individualized dose reduction techniques were utilized for this examination: 1. Automated exposure control; 2. Adjustment of the mA and/or kV according to patient size; 3. Use of iterative reconstruction technique. FINDINGS: No intracranial hemorrhage. No midline shift. Basal cisterns patents. Ventricles and sulci are globally prominent. No acute osseous abnormality. Orbits and paranasal sinuses unremarkable. Scattered foci of low attenuation within the white matter. Calcific atherosclerosis. IMPRESSION: 1. No acute intracranial hemorrhage. 2. Scattered regions of low attenuation within the white matter. Non-specific in nature but frequently secondary to small vessel ischemic disease. If there is high concern for acute causes clinically MRI could better assess acuity 3. Prominence of ventricles and sulci which is frequently secondary to age related volume loss. Electronically signed by: Katrin Schmidt MD (08/02/2020 2:39 PM) [id number] DICTATED and SIGNED BY: KATRIN SCHMIDT MD DATE: 08/02/20 [id number] 0 Course & Med Decision Making: Course & Med Decision Making Pertinent Labs and Imaging studies reviewed. (See chart for details) The patient is awake, alert and in no acute distress. Specifically the patient is neurologically intact and reports some relief from her headache after IV narcotics. It is worth pointing out the patient does have a history of hypertension however she does not regularly take her blood pressure medication. She does have this however it is not clear whether she purposely omits this or is just forgetful. Nonetheless I do believe she warrants admission for further observation with respect to her blood pressure. She will be admitted to Dr. Schrader for this purpose. The patient understands and has agreed to this plan of action. She is nontoxic-appearing and stable for transport to the floor. Viktoriya Disclaimer: Viktoriya Disclaimer: This electronic medical record was generated, in whole or in part, using a voice recognition dictation system. Departure Departure Impression: Primary Impression: Hypertensive urgency Additional Impression: Cephalgia Disposition: ADMITTED INPT THIS HOSP Admitting Physician: JANINA (Dr. Schrader) Condition: IMPROVED Referrals: ERVIN JOE MD (PCP) Problem Qualifiers MAY VILLA DO Aug 02, 2020 13:57
[2020-08-02 14:04] LABS: BASO # 0.1 x10^3/uL (0.0-0.2); BASO % 1 % (0-3); EOS # 0.1 x10^3/uL (0.0-0.7); EOS % 1 % (0-3); HEMATOCRIT 36.6 % (36.0-47.0); HEMOGLOBIN 11.9 g/dL (12.0-15.5); LYMPH # 1.9 x10^3/uL (1.0-4.8); LYMPH % 20 % (24-48); MEAN CORPUSCULAR HEMOGLOBIN 27 pg (25-35); MEAN CORPUSCULAR HGB CONC 32 g/dL (31-37); MEAN CORPUSCULAR VOLUME 84 fL (79-100); MONO # 0.7 x10^3/uL (0.0-1.1); MONO % 8 % (0-9); NEUT # 6.7 x10^3/uL (1.8-7.7); NEUT % 70 % (31-73); PLATELET COUNT 309 x10^3/uL (140-400); RED BLOOD COUNT 4.34 x10^6/uL (3.50-5.40); RED CELL DISTRIBUTION WIDTH 14.5 % (11.5-14.5); WHITE BLOOD COUNT 9.5 x10^3/uL (4.0-11.0)
[2020-08-02 14:14] LABS: PROTHROMBIN TIME PATIENT 13.6 SEC (11.7-14.0)
[2020-08-02 14:21] LABS: CALCIUM 9.2 mg/dL (8.5-10.1); CREATININE 1.3 mg/dL (0.6-1.0); GFR 38.7; POTASSIUM 4.1 mmol/L (3.5-5.1)
[2020-08-02 14:28] LABS: ALBUMIN 3.1 g/dL (3.4-5.0); ALBUMIN/GLOBULIN RATIO 0.8 (1.0-1.7); TOTAL BILIRUBIN 0.7 mg/dL (0.2-1.0); TOTAL PROTEIN 7.1 g/dL (6.4-8.2)
--- NOTE | 2020-08-02 14:36 | RAD ---
Examination: CHEST AP ONLY History: Reason: elevated blood pressure / Spl. Instructions: / History: Comparison: 11/22/2017, 08/19/2019. Findings: AP portable upright frontal view of the chest was obtained. Small right basilar densities are unchanged compared to prior exams. The cardiomediastinal silhouette is normal. Lungs are clear. There is no pneumothorax. No pleural effusion is appreciated. No acute bone abnormality. IMPRESSION: No acute cardiopulmonary process. Electronically signed by: Gennaro Siu MD (08/02/2020 2:33 PM) [id number]
--- NOTE | 2020-08-02 14:42 | RAD ---
INDICATION: Reason: headache / Spl. Instructions: / History: COMPARISON: None. TECHNIQUE: Axial CT images obtained through the head without intravenous contrast. One or more of the following individualized dose reduction techniques were utilized for this examination: 1. Automated exposure control; 2. Adjustment of the mA and/or kV according to patient size; 3. Use of iterative reconstruction technique. FINDINGS: No intracranial hemorrhage. No midline shift. Basal cisterns patents. Ventricles and sulci are globally prominent. No acute osseous abnormality. Orbits and paranasal sinuses unremarkable. Scattered foci of low attenuation within the white matter. Calcific atherosclerosis. IMPRESSION: 1. No acute intracranial hemorrhage. 2. Scattered regions of low attenuation within the white matter. Non-specific in nature but frequently secondary to small vessel ischemic disease. If there is high concern for acute causes clinically MRI could better assess acuity 3. Prominence of ventricles and sulci which is frequently secondary to age related volume loss. Electronically signed by: Mike Santos MD (08/02/2020 2:39 PM) [id number]
[2020-08-02] MEDS ORDERED: ONDANSETRON PF 4 MG/2 ML VIAL. IVP ONE (15:00)
[2020-08-02] MEDS ORDERED: MORPHINE SULFATE 4 MG/ML VIAL. IV ONE (15:00)
--- NOTE | 2020-08-02 15:32 | PDOC1 ---
History and Physical Date of Admission Date of Admission DATE: 08/02/20 TIME: 15:32 Identification/Chief Complaint Chief Complaint Headache, confusion Source Source: Caregiver, Chart review, Patient History of Present Illness History of Present Illness Ms Miranda is an 89 yo female w/ PMHx breast cancer (hormone positive), Diabetes- Type II, Diverticulitis, High Cholesterol, Hypertension, UTIs who presents to ED with her daughter c/o the worst headache of her life which began 08/01/2020 in the evening. Patient describes the pain as constant and starting at the top of her head on the right and radiating down her head into her neck. The patient states this pain has gotten progressively worse since yesterday evening it is now the worst headache she is ever experienced. She did have SARS-CoV-2 (COVID 19) on 05/08/2020 this year and was recently exposed to a relative over the who has recently tested positive. She was also recently seen for shortness of breath and was started on eliquis for presumed pulmonary embolism after VQ scan (difficult read, however, given the lack of ventilation portion). She is confused with initial systolic blood pressures > 200mmHg. Most of her history is supplemented by her daughter. She denies SOB or CP. Daughter is concerned the patient is not taking any of her medications. EKG normal sinus rhythm with a ventricular rate of 77 bpm with any signs of acute ST/T wave changes denoting ischemia. There is a leftward axis with otherwise normal-appearing intervals. Chest radiograph negative for acute abnormality. CT head negative for acute hemorrhage Labs significant for WBC 9.5, Hb 11.9, platelets 309, NA 137, K4.1, BUN 23, CR 1.3, glucose 164, albumin 3.1, troponin 0 0.017. Past Medical History Cardiovascular: HTN, Hyperlipidemia GI: Diverticulosis, GERD Heme/Onc: No pertinent hx, Cancer Hepatobiliary: No pertinent hx Psych: No pertinent hx Musculoskeletal: Osteoarthritis Rheumatologic: Gout Renal/: Chronic renal insuff, UTI, Other Endocrine: Diabetes Past Surgical History Past Surgical History: Arthroscopy, Cholecystectomy, Cataract Removal, Total knee replacement, Hysterectomy, Other Family History Family History: Cancer, Diabetes Social History Smoke: No ALCOHOL: none Drugs: None Current Problem List Problem List Problems Medical Problems: (1) Cephalgia Status: Acute (2) Hypertensive urgency Status: Acute Current Medications Current Medications Current Medications Morphine Sulfate (Morphine Sulfate) 4 mg 1X ONCE IV Last administered on 08/02/20at 15:00; Start 08/02/20 at 15:00; Stop 08/02/20 at 15:01; Status DC Ondansetron HCl (Zofran) 4 mg 1X ONCE IVP Last administered on 08/02/20at 14:59; Start 08/02/20 at 15:00; Stop 08/02/20 at 15:01; Status DC Active Scripts Active Milk Of Magnesia (Magnesium Hydroxide) 400 Mg/5 Ml Oral.susp 400 Mg PO QHS 5 Day s Colace (Docusate Sodium) 100 Mg Capsule 1 Cap PO BID 15 Days Augmentin 500-125 Tablet (Amoxicillin/Potassium Clav) 1 Each Tablet 1 Tab PO BID 5 Days Ondansetron Hcl 4 Mg Tablet 1 Tab PO PRN Q6HRS PRN 3 Days Reported Amlodipine Besylate 10 Mg Tablet 10 Mg PO DAILY Lisinopril 10 Mg Tablet 1 Tab PO DAILY Allergies Allergies: Coded Allergies: labetalol (Verified Allergy, Intermediate, 05/05/17) Patient can't remember the name of the medication but able to find it on previous record in [facility] 05/2013. ROS General: YES: Fatigue, Malaise, Appetite; No: Chills, Night Sweats, Other PSYCHOLOGICAL ROS: YES: Anxiety, Concentration difficultie, Disorientation, Memory difficulties; No: Behavioral Disorder, Decreased libido, Depression, Hallucinations, Hos tility, Irritablity, Mood Swings, Obsessive thoughts, Physical abuse, Sexual abuse, Sleep disturbances, Suicidal ideation, Other Eyes: No Blurry vision, No Decreased vision, No Double vision, No Dry eyes, No Excessive tearing, No Eye Pain, No Itchy Eyes, No Loss of vision, No Photophobia, No Scotomata, No Uses contacts, No Uses glasses, No Other HEENT: YES: Heacaches; No: Visual Changes, Hearing change, Nasal congestion, Nasal discharge, Oral lesions, Sinus pain, Sore Throat, Epistaxis, Sneezing, Snoring, Tinnitus, Vertigo, Vocal changes, Other ALLERGY AND IMMUNOLOGY: No: Hives, Insect Bite Sensitivity, Itchy/Watery Eyes, Nasal Congestion, Post Nasal Drip, Seasonal Allergies, Other Hematological and Lymphatic: YES: Blood Clots; No: Bleeding Problems, Blood Transfusions, Brusing, Night Sweats, Pallor, Swollen Lymph Nodes, Other ENDOCRINE: No: Breast Changes, Galactorrhea, Hair Pattern Changes, Hot Flashes, Malaise/lethargy, Mood Swings, Palpitations, Polydipsia/polyuria, Skin Changes, Temperature Intolerance, Unexpected Weight Changes, Other Breast: No New/Changing Breast Lumps, No Nipple changes, No Nipple discharge, No Other Respiratory: No: Cough, Hemoptysis, Orthopnea, Pleuritic Pain, Shortness of breath, SOB with excertion, Sputum Changes, Stridor, Tachypnea, Wheezing, Other Cardiovascular: No Chest Pain, No Palpitations, No Orthopnea, No Paroxysmal Noc. Dyspnea, No Edema, No Lt Headedness, No Other Gastrointestinal: Yes Nausea; No Vomiting, No Abdominal Pain, No Diarrhea, No Constipation, No Melena, No Hematochezia, No Other Genitourinary: No Dysuria, No Frequency, No Incontinence, No Hematuria, No Retention, No Discharge, No Urgency, No Pain, No Flank Pain, No Other, No , No , No , No , No , No , No Musculoskeletal: Yes Gait Disturbance; No Joint Pain, No Joint Stiffness, No Joint Swelling, No Muscle Pain, No Muscular Weakness, No Pain In:, No Swelling In:, No Other Neurological: No Behavorial Changes, No Bowel/Bladder ControlChng, No Confusion, No Dizziness, No Gait Disturbance, No Headaches, No Impaired Coord/balance, No Memory Loss, No Numbness/Tingling, No Seizures, No Speech Problems, No Tremors, No Visual Changes, No Weakness, No Other Skin: No Dry Skin, No Eczema, No Hair Changes, No Lumps, No Mole Changes, No Mottling, No Nail Changes, No Pruritus, No Rash, No Skin Lesion Changes, No Other, No Acne Physical Exam General: Alert, Cooperative, moderate distress HEENT: Atraumatic, PERRLA, EOMI, Mucous membr. moist/pink, Other (glasses in place) Lungs: Clear to auscultation, Normal air movement Heart: S1S2, RRR, no thrills, no rubs, no gallops, no murmurs Abdomen: Normal bowel sounds, Soft, No tenderness, No hepatosplenomegaly, No masses Rectal Exam: not examined Extremities: No clubbing, No cyanosis, No edema, Normal pulses, No tenderness/swelling Skin: No rashes, No breakdown, No significant lesion Neuro: Normal gait, Normal speech, Strength at 5/5 X4 ext, Normal tone, Sensation intact, Cranial nerves 3-12 NL, Reflexes 2+ Psych/Mental Status: Other (Confused) Vitals Vitals Vital Signs Date Time Temp Pulse Resp B/P (MAP) Pulse Ox O2 Delivery O2 Flow Rate FiO2 08/02/20 15:00 16 93 Room Air 08/02/20 13:30 97.5 76 208/88 (128) 97.5 203/95 (131) Labs Labs Laboratory Tests Test 08/02/20 13:52 White Blood Count 9.5 x10^3/uL (4.0-11.0) Red Blood Count 4.34 x10^6/uL (3.50-5.40) Hemoglobin 11.9 g/dL (12.0-15.5) Hematocrit 36.6 % (36.0-47.0) Mean Corpuscular Volume 84 fL (79-100) Mean Corpuscular Hemoglobin 27 pg (25-35) Mean Corpuscular Hemoglobin Concent 32 g/dL (31-37) Red Cell Distribution Width 14.5 % (11.5-14.5) Platelet Count 309 x10^3/uL (140-400) Neutrophils (%) (Auto) 70 % (31-73) Lymphocytes (%) (Auto) 20 % (24-48) Monocytes (%) (Auto) 8 % (0-9) Eosinophils (%) (Auto) 1 % (0-3) Basophils (%) (Auto) 1 % (0-3) Neutrophils # (Auto) 6.7 x10^3/uL (1.8-7.7) Lymphocytes # (Auto) 1.9 x10^3/uL (1.0-4.8) Monocytes # (Auto) 0.7 x10^3/uL (0.0-1.1) Eosinophils # (Auto) 0.1 x10^3/uL (0.0-0.7) Basophils # (Auto) 0.1 x10^3/uL (0.0-0.2) Prothrombin Time 13.6 SEC (11.7-14.0) Prothromb Time International Ratio 1.1 (0.8-1.1) Activated Partial Thromboplast Time 30 SEC (24-38) Sodium Level 137 mmol/L (136-145) Potassium Level 4.1 mmol/L (3.5-5.1) Chloride Level 104 mmol/L (98-107) Carbon Dioxide Level 25 mmol/L (21-32) Anion Gap 8 (6-14) Blood Urea Nitrogen 23 mg/dL (7-20) Creatinine 1.3 mg/dL (0.6-1.0) Estimated GFR (Cockcroft-Gault) 38.7 BUN/Creatinine Ratio 18 (6-20) Glucose Level 164 mg/dL (70-99) Calcium Level 9.2 mg/dL (8.5-10.1) Total Bilirubin 0.7 mg/dL (0.2-1.0) Aspartate Amino Transf (AST/SGOT) 17 U/L (15-37) Alanine Aminotransferase (ALT/SGPT) 16 U/L (14-59) Alkaline Phosphatase 71 U/L (46-116) Troponin I Quantitative < 0.017 ng/mL (0.000-0.055) Total Protein 7.1 g/dL (6.4-8.2) Albumin 3.1 g/dL (3.4-5.0) Albumin/Globulin Ratio 0.8 (1.0-1.7) Laboratory Tests Test 08/02/20 13:52 White Blood Count 9.5 x10^3/uL (4.0-11.0) Red Blood Count 4.34 x10^6/uL (3.50-5.40) Hemoglobin 11.9 g/dL (12.0-15.5) Hematocrit 36.6 % (36.0-47.0) Mean Corpuscular Volume 84 fL (79-100) Mean Corpuscular Hemoglobin 27 pg (25-35) Mean Corpuscular Hemoglobin Concent 32 g/dL (31-37) Red Cell Distribution Width 14.5 % (11.5-14.5) Platelet Count 309 x10^3/uL (140-400) Neutrophils (%) (Auto) 70 % (31-73) Lymphocytes (%) (Auto) 20 % (24-48) Monocytes (%) (Auto) 8 % (0-9) Eosinophils (%) (Auto) 1 % (0-3) Basophils (%) (Auto) 1 % (0-3) Neutrophils # (Auto) 6.7 x10^3/uL (1.8-7.7) Lymphocytes # (Auto) 1.9 x10^3/uL (1.0-4.8) Monocytes # (Auto) 0.7 x10^3/uL (0.0-1.1) Eosinophils # (Auto) 0.1 x10^3/uL (0.0-0.7) Basophils # (Auto) 0.1 x10^3/uL (0.0-0.2) Prothrombin Time 13.6 SEC (11.7-14.0) Prothromb Time International Ratio 1.1 (0.8-1.1) Activated Partial Thromboplast Time 30 SEC (24-38) Sodium Level 137 mmol/L (136-145) Potassium Level 4.1 mmol/L (3.5-5.1) Chloride Level 104 mmol/L (98-107) Carbon Dioxide Level 25 mmol/L (21-32) Anion Gap 8 (6-14) Blood Urea Nitrogen 23 mg/dL (7-20) Creatinine 1.3 mg/dL (0.6-1.0) Estimated GFR (Cockcroft-Gault) 38.7 BUN/Creatinine Ratio 18 (6-20) Glucose Level 164 mg/dL (70-99) Calcium Level 9.2 mg/dL (8.5-10.1) Total Bilirubin 0.7 mg/dL (0.2-1.0) Aspartate Amino Transf (AST/SGOT) 17 U/L (15-37) Alanine Aminotransferase (ALT/SGPT) 16 U/L (14-59) Alkaline Phosphatase 71 U/L (46-116) Troponin I Quantitative < 0.017 ng/mL (0.000-0.055) Total Protein 7.1 g/dL (6.4-8.2) Albumin 3.1 g/dL (3.4-5.0) Albumin/Globulin Ratio 0.8 (1.0-1.7) Images Images AP portable upright frontal view of the chest was obtained. Small right basilar densities are unchanged compared to prior exams. The cardiomediastinal silhouette is normal. Lungs are clear. There is no pneumothorax. No pleural effusion is appreciated. No acute bone abnormality. IMPRESSION: No acute cardiopulmonary process. CT head, non-contrast: No intracranial hemorrhage. No midline shift. Basal cisterns patents. Ventricles and sulci are globally prominent. No acute osseous abnormality. Orbits and paranasal sinuses unremarkable. Scattered foci of low attenuation within the white matter. Calcific atherosclerosis. IMPRESSION: 1. No acute intracranial hemorrhage. 2. Scattered regions of low attenuation within the white matter. Non-specific in nature but frequently secondary to small vessel ischemic disease. If there is high concern for acute causes clinically MRI could better assess acuity 3. Prominence of ventricles and sulci which is frequently secondary to age related volume loss. VTE Prophylaxis Ordered VTE Prophylaxis Devices: No VTE Pharmacological Prophylaxi: Yes Assessment/Plan Assessment/Plan A/P: Acute encephalopathy - likely metabolic due to hypertensive urgency/emergency with concern for underlying mild cognitive impairment vs late onset dementia. No concern for meningitis/encephalitis Hypertensive urgency - IV labetalol prn. Restart home medications, encourage medication compliance Worst headache of life - no intracranial hemorrhage, with associated cephalgia will given compazine, BP control. No meningeal signs CKD - Cr 1.3 at baseline Breast cancer (hormone positive) - cont letrazole Diabetes-Type II - last A1c 7.5. Will hold lisinopril and metformin given her creatinine clearance. Sliding scale insulin High Cholesterol - cont statin Troponin elevation - likely demand ischemia from hypertensive crisis. Will monitor Anemia - likely of chronic disease with DM2 and CKD H/o COVID 19 - convalesced. Repeat testing performed given her recent exposure Pulmonary embolism - no definitive diagnosis, however with COVID 19 recently and perfusion imaging the benefit of continuing eliquis outweighs the current risks FEN - ADA diet PPX - eliquis DNR/DNI Dispo - inpatient for above Justifications for Admission Other Justification TAMI DIOP MD Aug 02, 2020 15:32
[2020-08-02] MEDS ORDERED: MORPHINE SULFATE 4 MG/ML VIAL. IV PRN (16:00)
[2020-08-02] MEDS ORDERED: ONDANSETRON PF 4 MG/2 ML VIAL. IV PRN ×2 (16:00→16:45)
[2020-08-02] MEDS ORDERED: DEXTROSE 50% 25 GM / 50ML DISP.SYRIN. IV PRN (16:45)
[2020-08-02] MEDS ORDERED: PROCHLORPERAZINE 10 MG/2 ML VIAL. IV ONE (16:45)
[2020-08-02] MEDS: INSULIN LISPRO 300 UNITS/3 ML VIAL. SQ SCH (17:30)
[2020-08-02] MEDS: amLODIPine BESYLATE 10 MG TABLET PO SCH (17:41)
[2020-08-02 20:27] VITALS: BP 166/78
--- NOTE | 2020-08-02 20:35 | NUR ---
Pt arrived to room 248 per cart pt assisted to bed with assistance. Pt oriented to surroundings and call light vs obtained and stable poc explained pt denied any abd.pain at time of assessment will resume care and continue to monitor pt. Call light in reach bed alarm set.
[2020-08-02] MEDS ORDERED: ALLO300T PO (22:17)
[2020-08-02] MEDS ORDERED: OMEP20CA16 PO (22:17)
[2020-08-02] MEDS ORDERED: FEMARA2.5 MG PO (22:17)
[2020-08-02] MEDS ORDERED: APIX5TAB PO (22:17)
[2020-08-02] MEDS ORDERED: LISI-334 PO (22:17)
[2020-08-02] MEDS ORDERED: PRED20TA PO (22:17)
[2020-08-02] MEDS ORDERED: DIPH25TA24 PO (22:17)
[2020-08-02] MEDS ORDERED: METF-658 PO (22:17)
[2020-08-02] MEDS ORDERED: SITA50TA PO (22:17)
[2020-08-02] MEDS: DOCUSATE SODIUM 100 MG CAPSULE. PO SCH (23:26)
[2020-08-02 23:27] VITALS: BP 142/67
[2020-08-02] MEDS: MAGNESIUM HYDROXIDE 2,400 MG/30 ML ORAL.SUSP. PO SCH (23:27)
[2020-08-03] MEDS ORDERED: DOCUSATE SODIUM 100 MG CAPSULE. PO PRN (00:30)
[2020-08-03] MEDS ORDERED: ONDANSETRON ODT 4 MG TAB.RAPDIS. PO PRN (00:45)
[2020-08-03 02:35] VITALS: BP 150/80
[2020-08-03] MEDS: PANTOPRAZOLE 40 MG TABLET.DR. PO SCH (06:15)
[2020-08-03 07:00] VITALS: BP 169/71
[2020-08-03] MEDS: INSULIN LISPRO 300 UNITS/3 ML VIAL. SQ SCH ×3 (08:00→17:00)
[2020-08-03] MEDS: amLODIPine BESYLATE 10 MG TABLET PO SCH (08:41)
[2020-08-03] MEDS: ALLOPURINOL 100 MG TABLET. PO SCH (08:41)
[2020-08-03] MEDS: POLYETHYLENE GLYCOL 3350 17 GM PACKET. PO SCH (08:42)
[2020-08-03] MEDS: APIXABAN 5 MG TABLET. PO SCH ×2 (08:42→20:26)
[2020-08-03] MEDS: LINAGLIPTIN 5 MG TABLET PO SCH (08:42)
[2020-08-03] MEDS: DOCUSATE SODIUM 100 MG CAPSULE. PO SCH ×2 (09:00→20:26)
[2020-08-03] MEDS: NON FORMULARY ITEM (Letrozole (Femara) 1 TAB) PO SCH (09:00)
[2020-08-03 10:57] VITALS: BP 148/74
[2020-08-03 10:57] LABS: BASO # 0.1 x10^3/uL (0.0-0.2); BASO % 1 % (0-3); EOS % 0 % (0-3); HEMATOCRIT 36.5 % (36.0-47.0); HEMOGLOBIN 12.1 g/dL (12.0-15.5); LYMPH # 0.8 x10^3/uL (1.0-4.8); LYMPH % 6 % (24-48); MEAN CORPUSCULAR HEMOGLOBIN 28 pg (25-35); MEAN CORPUSCULAR HGB CONC 33 g/dL (31-37); MEAN CORPUSCULAR VOLUME 85 fL (79-100); MONO # 0.9 x10^3/uL (0.0-1.1); MONO % 7 % (0-9); NEUT # 11.7 x10^3/uL (1.8-7.7); NEUT % 86 % (31-73); PLATELET COUNT 305 x10^3/uL (140-400); RED BLOOD COUNT 4.32 x10^6/uL (3.50-5.40); RED CELL DISTRIBUTION WIDTH 14.3 % (11.5-14.5); WHITE BLOOD COUNT 13.6 x10^3/uL (4.0-11.0)
--- NOTE | 2020-08-03 11:06 | NUR ---
SS following for discharge planning. SS reviewed pt chart and discussed with pt RN. Pt is from home with daughter and is currently requiring oxygen. COVID19 test pending. SS will continue to follow for discharge planning.
[2020-08-03 11:11] LABS: CALCIUM 8.9 mg/dL (8.5-10.1); CREATININE 1.4 mg/dL (0.6-1.0); GFR 35.5; MAGNESIUM 1.9 mg/dL (1.8-2.4); POTASSIUM 4.5 mmol/L (3.5-5.1)
[2020-08-03] MEDS: CHLORTHALIDONE 25 MG TABLET. PO SCH (11:19)
[2020-08-03] MEDS: traMADol 50 MG TABLET PO PRN ×2 (11:19→20:26)
--- NOTE | 2020-08-03 11:41 | PDOC ---
[employer] PROGRESS NOTE Date of Service DOS: DATE: 08/03/20 TIME: 11:36 Chief Complaint Chief Complaint A/P: Acute encephalopathy - likely metabolic due to hypertensive urgency/emergency with concern for underlying mild cognitive impairment vs late onset dementia. No concern for meningitis/encephalitis Hypertensive urgency - IV labetalol prn. Restart home medications, encourage medication compliance Worst headache of life - no intracranial hemorrhage, with associated cephalgia will given compazine, BP control. No meningeal signs CKD - Cr 1.3 at baseline Breast cancer (hormone positive) - cont letrazole Diabetes-Type II - last A1c 7.5. Will hold lisinopril and metformin given her creatinine clearance. Sliding scale insulin High Cholesterol - cont statin Troponin elevation - likely demand ischemia from hypertensive crisis. Will monitor Anemia - likely of chronic disease with DM2 and CKD H/o COVID 19 - convalesced. Repeat testing performed given her recent exposure Pulmonary embolism - no definitive diagnosis, however with COVID 19 recently and perfusion imaging the benefit of continuing eliquis outweighs the current risks History of Present Illness History of Present Illness Ms Miranda is an 89 yo female w/ PMHx breast cancer (hormone positive), Diabetes- Type II, Diverticulitis, High Cholesterol, Hypertension, UTIs who presents to ED with her daughter c/o the worst headache of her life which began 08/01/2020 in the evening. Patient describes the pain as constant and starting at the top of her head on the right and radiating down her head into her neck. The patient states this pain has gotten progressively worse since yesterday evening it is now the worst headache she is ever experienced. She did have SARS-CoV-2 (COVID 19) on 05/08/2020 this year and was recently exposed to a relative over the who has recently tested positive. She was also recently seen for shortness of breath and was started on eliquis for presumed pulmonary embolism after VQ scan (difficult read, however, given the lack of ventilation portion). She is confused with initial systolic blood pressures > 200mmHg. Most of her history is supplemented by her daughter. She denies SOB or CP. Daughter is concerned the patient is not taking any of her medications. EKG normal sinus rhythm with a ventricular rate of 77 bpm with any signs of acute ST/T wave changes denoting ischemia. There is a leftward axis with otherwise normal-appearing intervals. Chest radiograph negative for acute abnormality. CT head negative for acute hemorrhage. 08/03: Patient seen and evaluated bedside. Blood pressure has improved, 169/71. Added chlorthalidone. Patient still complains of headache. She is breathing on 2 L nasal cannula, COVID-19 pending. We will continue with IV hydration and await COVID-19 results. Once we have confirmed negative she may discharge home. Vitals/I&O Vitals/I&O: Vital Signs Date Time Temp Pulse Resp B/P (MAP) Pulse Ox O2 Delivery O2 Flow Rate FiO2 08/03/20 11:19 98 Nasal Cannula 2.0 08/03/20 10:57 98.7 83 18 148/74 (98) 98.7 I & O 08/02/20 08/02/20 08/03/20 15:00 23:00 07:00 Intake Total 0 ml Output Total 200 ml Balance -200 ml 0 ml Physical Exam General: Alert, Cooperative, moderate distress Heart: Regular rate Lungs: Clear, Other Abdomen: Normal bowel sounds, Soft, No tenderness, No hepatosplenomegaly, No masses Extremities: No clubbing, No cyanosis, No edema, Normal pulses, No tenderness/swelling Skin: No rashes, No breakdown, No significant lesion Labs Labs: Laboratory Tests Test 08/02/20 13:52 08/03/20 08:55 08/03/20 10:21 White Blood Count 9.5 x10^3/uL (4.0-11.0) 13.6 x10^3/uL (4.0-11.0) Red Blood Count 4.34 x10^6/uL (3.50-5.40) 4.32 x10^6/uL (3.50-5.40) Hemoglobin 11.9 g/dL (12.0-15.5) 12.1 g/dL (12.0-15.5) Hematocrit 36.6 % (36.0-47.0) 36.5 % (36.0-47.0) Mean Corpuscular Volume 84 fL (79-100) 85 fL (79-100) Mean Corpuscular Hemoglobin 27 pg (25-35) 28 pg (25-35) Mean Corpuscular Hemoglobin Concent 32 g/dL (31-37) 33 g/dL (31-37) Red Cell Distribution Width 14.5 % (11.5-14.5) 14.3 % (11.5-14.5) Platelet Count 309 x10^3/uL (140-400) 305 x10^3/uL (140-400) Neutrophils (%) (Auto) 70 % (31-73) 86 % (31-73) Lymphocytes (%) (Auto) 20 % (24-48) 6 % (24-48) Monocytes (%) (Auto) 8 % (0-9) 7 % (0-9) Eosinophils (%) (Auto) 1 % (0-3) 0 % (0-3) Basophils (%) (Auto) 1 % (0-3) 1 % (0-3) Neutrophils # (Auto) 6.7 x10^3/uL (1.8-7.7) 11.7 x10^3/uL (1.8-7.7) Lymphocytes # (Auto) 1.9 x10^3/uL (1.0-4.8) 0.8 x10^3/uL (1.0-4.8) Monocytes # (Auto) 0.7 x10^3/uL (0.0-1.1) 0.9 x10^3/uL (0.0-1.1) Eosinophils # (Auto) 0.1 x10^3/uL (0.0-0.7) 0.0 x10^3/uL (0.0-0.7) Basophils # (Auto) 0.1 x10^3/uL (0.0-0.2) 0.1 x10^3/uL (0.0-0.2) Prothrombin Time 13.6 SEC (11.7-14.0) Prothromb Time International Ratio 1.1 (0.8-1.1) Activated Partial Thromboplast Time 30 SEC (24-38) Sodium Level 137 mmol/L (136-145) 140 mmol/L (136-145) Potassium Level 4.1 mmol/L (3.5-5.1) 4.5 mmol/L (3.5-5.1) Chloride Level 104 mmol/L (98-107) 102 mmol/L (98-107) Carbon Dioxide Level 25 mmol/L (21-32) 28 mmol/L (21-32) Anion Gap 8 (6-14) 10 (6-14) Blood Urea Nitrogen 23 mg/dL (7-20) 21 mg/dL (7-20) Creatinine 1.3 mg/dL (0.6-1.0) 1.4 mg/dL (0.6-1.0) Estimated GFR (Cockcroft-Gault) 38.7 35.5 BUN/Creatinine Ratio 18 (6-20) Glucose Level 164 mg/dL (70-99) 193 mg/dL (70-99) Calcium Level 9.2 mg/dL (8.5-10.1) 8.9 mg/dL (8.5-10.1) Total Bilirubin 0.7 mg/dL (0.2-1.0) Aspartate Amino Transf (AST/SGOT) 17 U/L (15-37) Alanine Aminotransferase (ALT/SGPT) 16 U/L (14-59) Alkaline Phosphatase 71 U/L (46-116) Troponin I Quantitative < 0.017 ng/mL (0.000-0.055) Total Protein 7.1 g/dL (6.4-8.2) Albumin 3.1 g/dL (3.4-5.0) Albumin/Globulin Ratio 0.8 (1.0-1.7) Glucose (Fingerstick) 193 mg/dL (70-99) Magnesium Level 1.9 mg/dL (1.8-2.4) Review of Systems Review of Systems: Headache. Denies chest pain, denies cough, denies fever. Assessment and Plan Assessmemt and Plan Problems Medical Problems: (1) Cephalgia Status: Acute (2) Hypertensive urgency Status: Acute Comment Review of Relevant I have reviewed the following items yinka (where applicable) has been applied. Medications: Current Medications Medications (Trade) Dose Ordered Sig/[place] Route PRN Reason Start Time Stop Time Status Last Admin Dose Admin Morphine Sulfate (Morphine Sulfate) 4 mg 1X ONCE IV 08/02/20 15:00 08/02/20 15:01 DC 08/02/20 15:00 Ondansetron HCl (Zofran) 4 mg 1X ONCE IVP 08/02/20 15:00 08/02/20 15:01 DC 08/02/20 14:59 Morphine Sulfate (Morphine Sulfate) 4 mg PRN Q2HR PRN IV PAIN 08/02/20 16:00 08/03/20 15:59 08/02/20 17:49 Prochlorperazine Edisylate (Compazine) 10 mg 1X ONCE IV 08/02/20 16:45 08/02/20 16:46 DC 08/02/20 17:41 Amlodipine Besylate (Norvasc) 10 mg DAILY PO 08/02/20 16:45 08/03/20 08:41 Linagliptin (Tradjenta) 5 mg DAILY PO 08/03/20 09:00 08/03/20 08:42 Allopurinol (Zyloprim) 100 mg DAILY PO 08/03/20 09:00 08/03/20 08:41 Apixaban (Eliquis) 5 mg BID PO 08/03/20 09:00 08/03/20 08:42 Pantoprazole Sodium (Protonix) 40 mg DAILYAC PO 08/03/20 07:30 08/03/20 06:15 Tramadol HCl (Ultram) 50 mg PRN Q6HRS PRN PO PAIN 08/03/20 00:15 08/03/20 11:19 Polyethylene Glycol (miraLAX PACKET) 17 gm DAILY PO 08/03/20 09:00 08/03/20 08:42 Chlorthalidone (Thalitone) 25 mg DAILY PO 08/03/20 11:00 08/03/20 11:19 Justifications for Admission Other Justification DIDI DUFF MD Aug 03, 2020 11:41
--- NOTE | 2020-08-03 12:25 | NUR ---
Nursing Note: pt has been refusing to eat. nurse has none administered insulin for breakfast and lunch. blood sugar is trending down on its own.
[2020-08-03] MEDS: IV NORMAL SALINE 1000ML BAG 1,000 ML IV SCH ×2 (13:05→17:15)
[2020-08-03 13:18] LABS: % BANDS 2 % (0-9); % LYMPHS 5 % (24-48); % MONOS 5 % (0-10); % SEGS 88 % (35-66); PLT ESTIMATE ADEQUATE (ADEQUATE)
[2020-08-03 14:14] LABS: BILIRUBIN,URINE NEGATIVE (NEG); CLARITY,URINE CLEAR; COLOR,URINE YELLOW; NITRITE,URINE NEGATIVE (NEG); PH,URINE 5.5 (<5.0-8.0); PROTEIN,URINE 100 mg/dL (NEG-TRACE); UROBILINOGEN,URINE 0.2 mg/dL (0.2 mg/dL)
[2020-08-03 14:15] LABS: HYALINE CASTS, URINE OCCASIONAL /HPF
[2020-08-03 14:16] LABS: BACTERIA,URINE 0 /HPF (0-FEW)
[2020-08-03 15:00] VITALS: BP 143/62
--- NOTE | 2020-08-03 16:16 | EKG ---
[facility] [address] [place] [address] Test Date: 2020-08-02 Test Time: 13:45:43 Pat Name: NATHANIEL SCHMID Department: Room: 248 1 Gender: F Take Up Operator: : [id number] Requested By: LULA CROCKER Order Number: [id number] Reading MD: Measurements Intervals [place] Rate: 77 P: 33 HI: 158 QRS: 0 QRSD: 96 T: 24 QT: 412 QTc: 468 Interpretive Statements SINUS RHYTHM LEFTWARD AXIS OTHERWISE NORMAL ECG RI6.02 No previous ECG available for comparison
[2020-08-03] MEDS: DEXAMETHASONE 4 MG TABLET PO SCH (17:16)
[2020-08-03 19:30] VITALS: BP 146/69
--- NOTE | 2020-08-03 19:50 | NUR ---
Pt in bed assessment completed vss poc explained pt c/o Headache will medicated pt and continue to monitor pt. Pt bed alarm is set call light in reach.
[2020-08-03] MEDS: MAGNESIUM HYDROXIDE 2,400 MG/30 ML ORAL.SUSP. PO SCH (20:26)
[2020-08-03] MEDS ORDERED: PSYLLIUM HUSK (SUGAR FREE) 1 PKT PACKET PO SCH (21:00)
[2020-08-03 22:02] VITALS: BP 149/71
[2020-08-04 02:49] VITALS: BP 141/82
[2020-08-04] MEDS: PANTOPRAZOLE 40 MG TABLET.DR. PO SCH ×2 (05:41→08:14)
[2020-08-04] MEDS: IV NORMAL SALINE 1000ML BAG 1,000 ML IV SCH (05:48)
[2020-08-04 07:00] VITALS: BP 147/76
[2020-08-04] MEDS: INSULIN LISPRO 300 UNITS/3 ML VIAL. SQ SCH ×2 (08:00→13:12)
[2020-08-04] MEDS: DOCUSATE SODIUM 100 MG CAPSULE. PO SCH (08:14)
[2020-08-04] MEDS: DEXAMETHASONE 4 MG TABLET PO SCH (08:14)
[2020-08-04] MEDS: APIXABAN 5 MG TABLET. PO SCH (08:15)
[2020-08-04] MEDS: CHLORTHALIDONE 25 MG TABLET. PO SCH (08:15)
[2020-08-04] MEDS: ALLOPURINOL 100 MG TABLET. PO SCH (08:15)
[2020-08-04] MEDS: LINAGLIPTIN 5 MG TABLET PO SCH (08:15)
[2020-08-04] MEDS: amLODIPine BESYLATE 10 MG TABLET PO SCH (08:16)
[2020-08-04] MEDS: NON FORMULARY ITEM (Letrozole (Femara) 1 TAB) PO SCH (08:53)
[2020-08-04] MEDS: POLYETHYLENE GLYCOL 3350 17 GM PACKET. PO SCH (09:00)
[2020-08-04] MEDS ORDERED: ANTI-COAG MONITOR BY PHARMACY. MC PRN (10:00)
--- NOTE | 2020-08-04 10:20 | PDOC ---
[facility] [facility] PROGRESS NOTE Date of Service DOS: DATE: 08/04/20 TIME: 10:19 Chief Complaint Chief Complaint A/P: Acute encephalopathy - likely metabolic due to hypertensive urgency/emergency with concern for underlying mild cognitive impairment vs late onset dementia. No concern for meningitis/encephalitis Hypertensive urgency - IV labetalol prn. Restart home medications, encourage medication compliance Worst headache of life - no intracranial hemorrhage, with associated cephalgia will given compazine, BP control. No meningeal signs CKD - Cr 1.3 at baseline Breast cancer (hormone positive) - cont letrazole Diabetes-Type II - last A1c 7.5. Will hold lisinopril and metformin given her creatinine clearance. Sliding scale insulin High Cholesterol - cont statin Troponin elevation - likely demand ischemia from hypertensive crisis. Will monitor Anemia - likely of chronic disease with DM2 and CKD H/o COVID 19 - convalesced. Repeat testing performed given her recent exposure Pulmonary embolism - no definitive diagnosis, however with COVID 19 recently and perfusion imaging the benefit of continuing eliquis outweighs the current risks History of Present Illness History of Present Illness Ms Miranda is an 89 yo female w/ PMHx breast cancer (hormone positive), Diabetes- Type II, Diverticulitis, High Cholesterol, Hypertension, UTIs who presents to ED with her daughter c/o the worst headache of her life which began 08/01/2020 in the evening. Patient describes the pain as constant and starting at the top of her head on the right and radiating down her head into her neck. The patient states this pain has gotten progressively worse since yesterday evening it is now the worst headache she is ever experienced. She did have SARS-CoV-2 (COVID 19) on 05/08/2020 this year and was recently exposed to a relative over the who has recently tested positive. She was also recently seen for shortness of breath and was started on eliquis for presumed pulmonary embolism after VQ scan (difficult read, however, given the lack of ventilation portion). She is confused with initial systolic blood pressures > 200mmHg. Most of her history is supplemented by her daughter. She denies SOB or CP. Daughter is concerned the patient is not taking any of her medications. EKG normal sinus rhythm with a ventricular rate of 77 bpm with any signs of acute ST/T wave changes denoting ischemia. There is a leftward axis with otherwise normal-appearing intervals. Chest radiograph negative for acute abnormality. CT head negative for acute hemorrhage. 08/03: Patient seen and evaluated bedside. Blood pressure has improved, 169/71. Added chlorthalidone. Patient still complains of headache. She is breathing on 2 L nasal cannula, COVID-19 pending. We will continue with IV hydration and await COVID-19 results. Once we have confirmed negative she may discharge home. 08/04: Patient seen and evaluated. Blood pressure is improved, 147/76 today. She denies any headaches, he is breathing on room air. She is COVID-19 negative. Will discharge home with home health today, and amlodipine/lisinopril.. Greater than 30 minutes was spent managing the discharge this patient. Vitals/I&O Vitals/I&O: Vital Signs Date Time Temp Pulse Resp B/P (MAP) Pulse Ox O2 Delivery O2 Flow Rate FiO2 08/04/20 08:16 80 08/04/20 08:10 Room Air 08/04/20 07:00 96.7 15 147/76 (99) 95 2.0 96.7 I & O 08/03/20 08/03/20 08/04/20 15:00 23:00 07:00 Intake Total 240 ml 550 ml 120 ml Output Total 150 ml 150 ml 200 ml Balance 90 ml 400 ml -80 ml Physical Exam General: Alert, Cooperative, moderate distress Heart: Regular rate Lungs: Clear, Other Abdomen: Normal bowel sounds, Soft, No tenderness, No hepatosplenomegaly, No masses Extremities: No clubbing, No cyanosis, No edema, Normal pulses, No tenderness/swelling Skin: No rashes, No breakdown, No significant lesion Labs Labs: Laboratory Tests Test 08/03/20 10:21 08/03/20 11:24 08/03/20 11:30 08/03/20 16:38 White Blood Count 13.6 x10^3/uL (4.0-11.0) Red Blood Count 4.32 x10^6/uL (3.50-5.40) Hemoglobin 12.1 g/dL (12.0-15.5) Hematocrit 36.5 % (36.0-47.0) Mean Corpuscular Volume 85 fL (79-100) Mean Corpuscular Hemoglobin 28 pg (25-35) Mean Corpuscular Hemoglobin Concent 33 g/dL (31-37) Red Cell Distribution Width 14.3 % (11.5-14.5) Platelet Count 305 x10^3/uL (140-400) Neutrophils (%) (Auto) 86 % (31-73) Lymphocytes (%) (Auto) 6 % (24-48) Monocytes (%) (Auto) 7 % (0-9) Eosinophils (%) (Auto) 0 % (0-3) Basophils (%) (Auto) 1 % (0-3) Neutrophils # (Auto) 11.7 x10^3/uL (1.8-7.7) Lymphocytes # (Auto) 0.8 x10^3/uL (1.0-4.8) Monocytes # (Auto) 0.9 x10^3/uL (0.0-1.1) Eosinophils # (Auto) 0.0 x10^3/uL (0.0-0.7) Basophils # (Auto) 0.1 x10^3/uL (0.0-0.2) Segmented Neutrophils % 88 % (35-66) Band Neutrophils % 2 % (0-9) Lymphocytes % 5 % (24-48) Monocytes % 5 % (0-10) Platelet Estimate Adequate (ADEQUATE) Sodium Level 140 mmol/L (136-145) Potassium Level 4.5 mmol/L (3.5-5.1) Chloride Level 102 mmol/L (98-107) Carbon Dioxide Level 28 mmol/L (21-32) Anion Gap 10 (6-14) Blood Urea Nitrogen 21 mg/dL (7-20) Creatinine 1.4 mg/dL (0.6-1.0) Estimated GFR (Cockcroft-Gault) 35.5 Glucose Level 193 mg/dL (70-99) Calcium Level 8.9 mg/dL (8.5-10.1) Magnesium Level 1.9 mg/dL (1.8-2.4) Thyroid Stimulating Hormone (TSH) 3.462 uIU/mL (0.358-3.74) Glucose (Fingerstick) 179 mg/dL (70-99) 136 mg/dL (70-99) Urine Collection Type Unknown Urine Color Yellow Urine Clarity Clear Urine pH 5.5 (<5.0-8.0) Urine Specific Drury 1.020 (1.000-1.030) Urine Protein 100 mg/dL (NEG-TRACE) Urine Glucose (UA) 100 mg/dL (NEG) Urine Ketones (Stick) Negative mg/dL (NEG) Urine Blood Negative (NEG) Urine Nitrite Negative (NEG) Urine Bilirubin Negative (NEG) Urine Urobilinogen Dipstick 0.2 mg/dL (0.2 mg/dL) Urine Leukocyte Esterase Negative (NEG) Urine RBC 1-2 /HPF (0-2) Urine WBC 1-4 /HPF (0-4) Urine Squamous Epithelial Cells Mod /LPF Urine Transitional Epithelial Cells Occ /LPF Urine Renal Epithelial Cells Occ /LPF Urine Bacteria 0 /HPF (0-FEW) Urine Hyaline Casts Occasional /HPF Urine Mucus Mod /LPF Test 08/03/20 20:27 08/04/20 08:14 Glucose (Fingerstick) 163 mg/dL (70-99) 198 mg/dL (70-99) Review of Systems Review of Systems: Denies headache, denies chest pain, denies shortness of breath. Assessment and Plan Assessmemt and Plan Problems Medical Problems: (1) Cephalgia Status: Acute (2) Hypertensive urgency Status: Acute Comment Review of Relevant I have reviewed the following items yinka (where applicable) has been applied. Medications: Current Medications Medications (Trade) Dose Ordered Sig/Eugene Route PRN Reason Start Time Stop Time Status Last Admin Dose Admin Psyllium Hydrophilic Mucilloid (Metamucil Fiber Packet) 1 pkt QHS PO 08/03/20 21:00 08/03/20 20:26 Chlorthalidone (Thalitone) 25 mg DAILY PO 08/03/20 11:00 08/04/20 08:15 Sodium Chloride 1,000 ml @ 75 mls/hr [id number] IV 08/03/20 11:45 08/04/20 05:48 Dexamethasone (Decadron) 6 mg [id number] PO 08/03/20 16:30 08/04/20 08:14 Info (Anti-Coagulation Monitoring By Pharmacy) 1 each PRN DAILY PRN MC SEE COMMENTS 08/04/20 10:00 08/04/20 09:54 Justifications for Admission Other Justification DIDI DUFF MD Aug 04, 2020 10:20
--- NOTE | 2020-08-04 10:21 | NUR ---
SS following up with discharge planning. SS reviewed pt chart and discussed with pt RN. Pt is currently on room air. PT recommended home with home healthcare. COVID19 negative. SS contacted pt's daughter, Diana, , and discussed discharge planning and home healthcare. Pt's daughter agreeable to home healthcare and requested [facility], ; fax [phone]. SS phoned and faxed referral as requested. SS will continue to follow for discharge planning.
--- NOTE | 2020-08-04 10:23 | SNU/HH DC ---
DISCHARGE WITH HOME HEALTH DISCHARGE INFORMATION: Discharge Date: Aug 04, 2020 Final Diagnosis: Problems Medical Problems: (1) Cephalgia Status: Acute (2) Hypertensive urgency Status: Acute Condition on Discharge: Stable CODE STATUS: Code Status: DNR/DNI HOME HEALTH: Face to Face: I certify this patient is under my care and that I, or a nurse practitioner or physician's hair assistant working with me, had a face to face encounter that meets the physician face to face encounter requirements with this patient on 08/04/2020. RN For Eval/Treatment: Yes Physical Therapy For: Evalulation/Treatment Pt Meets Homebound Status: Poor coordination w/ amb., Extreme weakness w/ amb. POST DISCHARGE ORDERS: Activity Instructions for Disc: Activity as tolerated Weight Bearing Status after Di: As tolerated Bathing Instructions: No Tub Bath until see DIET AFTER DISCHARGE: Cardiac Wound/Incision Care: No wound care needed CHECKS AFTER DISCHARGE: Checks after discharge: Check blood press - daily, Check blood sugar, ac/hs, Weigh Yourself Daily TREATMENT/EQUIPMENT ORDERS: Adaptive Equipment Issued: None CERTIFICATION STATEMENT: Certification Statement: Certification Statement: Based on the above finding, I certify that this patient is confined to the home and needs intermittent prison care, physical therapy and/or speech therapy, or continues to need occupational therapy.~ This patient is under my care, and I have initiated the establishment of the plan of care.~ This patient will be followed by myself or a community physician who will periodically review the plan of care. Home Meds Active Scripts Magnesium Hydroxide (MILK OF MAGNESIA) 400 Mg/5 Ml Oral.susp, 400 MG PO QHS for 5 Days, #1 MISC Prov:LULA CROCKER MD 07/21/20 Docusate Sodium (COLACE) 100 Mg Capsule, 1 CAP PO BID for 15 Days, #30 CAP 0 Refills Prov:LULA CROCKER MD 07/21/20 Amoxicillin/Potassium Clav (AUGMENTIN 500-125 TABLET) 1 Each Tablet, 1 TAB PO BID for 5 Days, #10 TAB 0 Refills Prov:LULA CROCKER MD 07/21/20 Ondansetron Hcl (ONDANSETRON HCL) 4 Mg Tablet, 1 TAB PO PRN Q6HRS PRN for NAUSEA/VOMITING for 3 Days, #10 TAB 0 Refills Prov:JUSTIN HERNANDEZ APRN 05/08/20 Reported Medications Apixaban (ELIQUIS) 5 Mg Tablet, 5 MG PO BID for , TAB 08/02/20 Prednisone (PREDNISONE) 20 Mg Tablet, 40 MG PO DAILY for , TAB 08/02/20 Omeprazole (OMEPRAZOLE) 20 Mg Capsule.dr, 1 CAP PO DAILY for , #30 CAP 5 Refills 08/02/20 Diphenhydramine Hcl (DIPHENHYDRAMINE HCL) 25 Mg Tablet, 1 TAB PO PRN BID PRN for for 30 Days, TAB 0 Refills 08/02/20 Sitagliptin Phosphate (JANUVIA) 50 Mg Tablet, 25 TAB PO DAILY for , #30 TAB 5 Refills 08/02/20 Allopurinol (ALLOPURINOL) 300 Mg Tablet, 1 TAB PO DAILY for , #30 TAB 5 Refills 08/02/20 Letrozole (FEMARA) 2.5 Mg Tablet, 1 TAB PO DAILY for for 30 Days, #30 TAB 0 Refills 08/02/20 Metformin Hcl (METFORMIN HCL ER) 500 Mg Tab.er.24h, 500 MG PO BIDWMEALS for , TAB 08/02/20 Lisinopril (LISINOPRIL) 20 Mg Tablet, 1 TAB PO DAILY for , #30 TAB 5 Refills 08/02/20 Amlodipine Besylate (AMLODIPINE BESYLATE) 10 Mg Tablet, 10 MG PO DAILY for High Blood Pressure, TAB 08/20/19 DIDI DUFF MD Aug 04, 2020 10:23
--- NOTE | 2020-08-04 10:37 | NUR ---
SS following up with discharge planning. Discharge orders for home healthcare received. SS phoned and faxed discharge orders to [facility], ; fax [phone]. Pt's RN notified.
[2020-08-04 11:00] VITALS: BP 151/76
--- NOTE | 2020-08-04 16:14 | NUR ---
Discharge: Teaching verbal and written. Reviewed medication, follow-up, hypertension, cardiac diet, ect. Patient verbalized understanding. Daughter verbalized understanding. All belongings with patient. IV removed without complications, catheter tip in-tact. Home health set up her social work. Patient assisted off of unit via wheelchair accompanied by nurse and daughter.
== END 2020-08-04 15:35 | disposition home or self-care (01) ==
LOC: ER 13:06 → ED HOLD 15:15 → 2 SOUTH 20:12 → OBSVTOIN 08-03 00:27 → INTOOBSV 08-03 00:27
PROVIDERS: ADMIT Internal Medicine; ATTEND Internal Medicine
DX: G93.40 Encephalopathy, unspecified (principal); Z20.828 Contact with and (suspected) exposure to other viral communicable diseases; I16.0 Hypertensive urgency; I26.02 Saddle embolus of pulmonary artery with acute cor pulmonale; R51.9 Headache, unspecified; I12.9 Hypertensive chronic kidney disease with stage 1 through stage 4 chronic kidney disease, or unspecified chronic kidney disease; N18.9 Chronic kidney disease, unspecified; E11.22 Type 2 diabetes mellitus with diabetic chronic kidney disease; D63.8 Anemia in other chronic diseases classified elsewhere; I26.99 Other pulmonary embolism without acute cor pulmonale; I24.8 Other forms of acute ischemic heart disease; E78.00 Pure hypercholesterolemia, unspecified; E78.5 Hyperlipidemia, unspecified; R74.8 Abnormal levels of other serum enzymes; Z85.3 Personal history of malignant neoplasm of breast; Z86.19 Personal history of other infectious and parasitic diseases; Z86.711 Personal history of pulmonary embolism; Z90.710 Acquired absence of both cervix and uterus; Z96.659 Presence of unspecified artificial knee joint; Z98.890 Other specified postprocedural states; Z79.899 Other long term (current) drug therapy; Z79.4 Long term (current) use of insulin
CPT/HCPCS: 36415; 70450; 71045; 80048; 80053; 81001; 82962; 83735; 84443; 84484; 85007; 85025; 85610; 85730; 93005; 96361; 96374; 96375; 96376; 97162; 97165; 97535; 99285; G0378; J0780; J1815; J2270; J2405; J7030; U0003; G0379

== ENCOUNTER 2020-10-20 15:19 | Emergency (ER) | payer MEDICARE ==
[~2020-10-20] VITALS: Ht 154.9 cm; Wt 65.4 kg
[~2020-10-20 15:19] MED LIST changes: +APIX5TAB PO; +DIPH25TA24 PO; +FEMARA2.5 MG PO; +LISI10TA16 PO; -LISI10TA2 PO; +LISI20TA18 PO; +METF-658 PO; +PRED20TA PO; +SITA50TA PO
[2020-10-20 15:25] VITALS: BP 154/73
[2020-10-20] MEDS ORDERED: AMOX1TAB61 PO (16:18)
--- NOTE | 2020-10-20 16:19 | ED.ADGEN ---
Past Medical History Past Medical History: Cancer, Diabetes-Type II, Diverticulitis, High Chol esterol, Hypertension, UTI Additional Past Medical Histor: CURRENT/HX OF BREAST CA; covid 19 Past Surgical History: Knee Replacement Additional Past Surgical Histo: RIGHT HUMERUS,LEFT BREAST LUMPECTOMY Smoking Status: Never Smoker Alcohol Use: None Drug Use: None General Adult EDM: Chief Complaint: EARACHE/EAR PAIN HPI: HPI: Patient is a 89 year old female, accompanied by her daughter, who presents to the emergency room with complaints of pain in her right ear that is radiating down into her right neck. She reports that the symptoms began 2 days ago. Patient states she was seen by urgent care 2 days ago who recommended that she takes Zyrtec, patient reports that she was not able to tolerate the Zyrtec as it caused an upset stomach so she stopped taking it. She denies any fever, cough, shortness of breath, nausea, vomiting, diarrhea, headache, dental pain, sore throat, or dysphagia. Patient currently rates her pain a 5 out of 10 on the pain scale, she denies any alleviating factors, the pain is worse if the area is touched. Patient denies any drainage or change in her hearing with the onset of the symptoms. Review of Systems: Review of Systems: Complete ROS is negative unless otherwise noted in HPI. Allergies: Allergies: Allergies Coded Allergies Type Severity Reaction Last Updated Verified labetalol Allergy Intermediate 05/05/17 Yes Physical Exam: PE: See Above Constitutional: Well developed, well nourished, no acute distress, non-toxic appearance. [] HENT: Normocephalic, atraumatic, bilateral external ears normal, nose normal. [] Eyes: PERRLA, EOMI, conjunctiva normal, no discharge, bilateral TMs normal, oropharynx moist, no mastoid tenderness or erythema bilaterally; patient reports increased pain with outward pulling of the right ear, cobblestone appearance of posterior pharynx with purulent post nasal drainage Neck: Normal range of motion, no stridor; right anterior cervical lymph nodes tender to palpation [] Cardiovascular:Heart rate regular rhythm Lungs & Thorax: Respirations even and unlabored, no retractions, no respiratory distress Skin: Warm, dry, no erythema, no rash. [] Extremities: No cyanosis, ROM intact, no edema. [] Neurologic: Alert and oriented X 3, no focal deficits noted. [] Psychologic: Affect normal, judgement normal, mood normal. [] Current Patient Data: Vital Signs: Vital Signs Date Time Temp Pulse Resp B/P (MAP) Pulse Ox O2 Delivery O2 Flow Rate FiO2 10/20/20 15:25 98.0 84 22 154/73 (100) 97 Room Air 98.0 EKG: EKG: [] Heart Score: Risk Factors: Risk Factors: DM, Current or recent (<one month) smoker, HTN, HLP, family history of CAD, obesity. Risk Scores: Score 0 - 3: 2.5% MACE over next 6 weeks - Discharge Home Score 4 - 6: 20.3% MACE over next 6 weeks - Admit for Clinical Observation Score 7 - 10: 72.7% MACE over next 6 weeks - Early Invasive Strategies Radiology/Procedures: Radiology/Procedures: [] Course & Med Decision Making: Course & Med Decision Making Pertinent Labs and Imaging studies reviewed. (See chart for details) 89-year-old female presents emergency department with complaints of right ear pain for the last 3 days. Physical exam is concerning for sinusitis with cobblestone appearance of posterior pharynx and purulent postnasal drainage. Right TM is normal, there is right anterior chain lymph node tenderness to palpation, prescription was written for Augmentin 875 mg tablets 1 p.o. twice daily x7 days. I encouraged the patient and her daughter to follow-up with primary care doctor next week for reevaluation, return to the ER if symptoms worsen or fever develops. Patient and her daughter verbalized an understanding of home care, medications, follow-up, and return to ED instructions and were in agreement with the plan of care. [] Dragon Disclaimer: Dragon Disclaimer: This electronic medical record was generated, in whole or in part, using a voice recognition dictation system. Departure Departure Impression: Primary Impression: Sinusitis, acute Disposition: 01 DC HOME SELF CARE/HOMELESS Condition: STABLE Referrals: ERVIN JOE MD (PCP) Patient Instructions: Sinusitis, [id number] Additional Instructions: Fill the prescription(s) and use as directed. Alternate Tylenol and ibuprofen as needed for fever. Follow-up with your primary care doctor in 1 to 2 days for reexamination, return to the ER if symptoms worsen or if fever develops.. Scripts Amoxicillin/Potassium Clav (AUGMENTIN 875-125 TABLET) 1 Each Tablet 1 TAB PO BID for 7 Days, #14 TAB 0 Refills Prov: JUSTIN HERNANDEZ APRN 10/20/20 Problem Qualifiers Primary Impression: Sinusitis, acute Sinusitis location: unspecified location Recurrence: not specified as recurrent Qualified Codes: J01.90 - Acute sinusitis, unspecified JUSTIN HERNANDEZ APRN Oct 20, 2020 16:19
== END 2020-10-20 16:48 | disposition home or self-care (01) ==
LOC: ER 15:19
DX: J01.90 Acute sinusitis, unspecified (principal); E11.9 Type 2 diabetes mellitus without complications; E78.00 Pure hypercholesterolemia, unspecified; I10 Essential (primary) hypertension; Z88.8 Allergy status to other drugs, medicaments and biological substances
CPT/HCPCS: 99283

== ENCOUNTER 2020-10-22 17:36 | Emergency (ER) | payer MEDICARE ==
[~2020-10-22] VITALS: Ht 154.9 cm; Wt 74.0 kg
[~2020-10-22 17:36] MED LIST changes: +AMOX1TAB61 PO
[2020-10-22 18:27] VITALS: BP 154/73
[2020-10-22] MEDS ORDERED: HYDR-2761 PO (19:28)
[2020-10-22] MEDS ORDERED: NEOM10DR32 AD (19:28)
--- NOTE | 2020-10-22 19:32 | PHYS DOC ---
Past Medical History Past Medical History: Cancer, Diabetes-Type II, Diverticulitis, High Chol esterol, Hypertension, UTI Additional Past Medical Histor: CURRENT/HX OF BREAST CA; covid 19 Past Surgical History: Knee Replacement Additional Past Surgical Histo: RIGHT HUMERUS,LEFT BREAST LUMPECTOMY Smoking Status: Never Smoker Alcohol Use: None Drug Use: None General Adult EDM: Chief Complaint: EARACHE/EAR PAIN HPI: HPI: Patient is a 89 year old female presents with a chief complaint of right ear pain. Patient states initially evaluated on Friday was told to take Zyrtec for her pain pain progressed patient was subsequently seen in the emergency department on Friday. On Friday patient was evaluated and she was discharged home with prescription of Augmentin. Despite starting Augmentin yesterday patient states pain continues. Patient presents for evaluation due to pain. On exam patient has pain with movement of ear, canal filled with wax, TM minimally visualized but red. Pain located in ear with radiation down neck. Denies any fever chills. Review of Systems: Review of Systems: Review of systems: Constitutional symptoms- No fever, no chills. Eyes- No Discharge, No Visual Loss Respiratory symptoms- No shortness of breath, No wheezing, No Dyspnea on Exertion Cardiovascular Systems; No chest pain, No Palpitations, No syncope Gastrointestinal symptoms: NO abdominal pain, no nausea, no vomiting or diarrhea. Genitourinary symptoms: No dysuria. Musculoskeletal symptoms: No back pain No extremity pain. NEUROLOGICAL Symptoms: No headache, no generalized weakness; No focal Weakness Ears-positive right ear pain Heart Score: Risk Factors: Risk Factors: DM, Current or recent (<one month) smoker, HTN, HLP, family history of CAD, obesity. Risk Scores: Score 0 - 3: 2.5% MACE over next 6 weeks - Discharge Home Score 4 - 6: 20.3% MACE over next 6 weeks - Admit for Clinical Observation Score 7 - 10: 72.7% MACE over next 6 weeks - Early Invasive Strategies Allergies: Allergies: Allergies Coded Allergies Type Severity Reaction Last Updated Verified labetalol Allergy Intermediate 05/05/17 Yes Physical Exam: PE: Constitutional: Well developed, well nourished, no acute distress, non-toxic appearance. [] HENT: Normocephalic, atraumatic, bilateral external ears normal, oropharynx moist, no oral exudates, nose normal. [] Eyes: PERRLA, EOMI, conjunctiva normal, no discharge. [] Neck: Normal range of motion, no tenderness, supple, no stridor. [] Cardiovascular:Heart rate regular rhythm, no murmur [] Lungs & Thorax: Bilateral breath sounds clear to auscultation [] Abdomen: Bowel sounds normal, soft, no tenderness, no masses, no pulsatile masses. [] Skin: Warm, dry, no erythema, no rash. [] Back: No tenderness, no CVA tenderness. [] Extremities: No tenderness, no cyanosis, no clubbing, ROM intact, no edema. [] Neurologic: Alert and oriented X 3, normal motor function, normal sensory function, no focal deficits noted. [] Psychologic: Affect normal, judgement normal, mood normal. [] Current Patient Data: Vital Signs: Vital Signs Date Time Temp Pulse Resp B/P (MAP) Pulse Ox O2 Delivery O2 Flow Rate FiO2 10/22/20 18:27 98.2 86 20 154/73 (100) 96 Room Air 98.2 EKG: EKG: [] Radiology/Procedures: Radiology/Procedures: [] Course & Med Decision Making: Course & Med Decision Making Pertinent Labs and Imaging studies reviewed. (See chart for details) [] Dragon Disclaimer: [employer] Disclaimer: This electronic medical record was generated, in whole or in part, using a voice recognition dictation system. Departure Departure Impression: Primary Impression: Otalgia of right ear Disposition: 01 DC HOME SELF CARE/HOMELESS Condition: STABLE Patient Instructions: Otalgia Scripts Hydrocodone Bit/Acetaminophen (HYDROCODONE-APAP 5-325 ) 1 Tab Tablet 1 TAB PO PRN Q6HRS PRN for PAIN, #10 TAB 0 Refills Prov: WILLIAM FORTUNE DO 10/22/20 Neomycin/Polymyxin B Sulf/Hc (WBAERSYB-[id number]-PF EAR SUSP) 10 Ml Drops.susp 4 DROP AD TID for 5 Days, #10 ML 0 Refills Prov: WILLIAM FORTUNE DO 10/22/20 WILLIAM FORTUNE DO Oct 22, 2020 19:32
== END 2020-10-22 19:30 | disposition home or self-care (01) ==
LOC: ER 17:36
DX: H92.01 Otalgia, right ear (principal); E11.9 Type 2 diabetes mellitus without complications; E78.00 Pure hypercholesterolemia, unspecified; I10 Essential (primary) hypertension; Z85.3 Personal history of malignant neoplasm of breast; Z98.890 Other specified postprocedural states; Z90.89 Acquired absence of other organs; Z88.8 Allergy status to other drugs, medicaments and biological substances
CPT/HCPCS: 99283

== ENCOUNTER 2021-01-24 09:37 | Observation (INO) | payer MEDICARE ==
[~2021-01-24] VITALS: Ht 157.5 cm; Wt 66.0 kg
[2021-01-24] VITALS (8 sets, daily range): BP systolic 112–195; BP diastolic 59–93
[~2021-01-24 09:37] MED LIST changes: +HYDR-2761 PO; +NEOM10DR32 AD
--- NOTE | 2021-01-24 09:56 | ED.ADGEN ---
Past Medical History Past Medical History: Cancer, Diabetes-Type II, Diverticulitis, High Cholesterol, Hypertension, UTI Additional Past Medical Histor: CURRENT/HX OF BREAST CA; covid 19 Past Surgical History: Knee Replacement Additional Past Surgical Histo: RIGHT HUMERUS,LEFT BREAST LUMPECTOMY Smoking Status: Never Smoker Alcohol Use: None Drug Use: None General Adult EDM: Chief Complaint: CHEST PAIN HPI: HPI: Patient is a 89-year-old female who arrives ambulatory to the emergency department complaining of developing left-sided chest pain sometime around 8:00 this morning. Patient reports in addition to this pain she experienced shortness of air and does not feel as if she can catch her breath. Patient states that the pain is migrating down her left upper extremity to her left hand and she has pain from time to time since this started. Patient also reports to a dry cough however she states is not lingering. She denies any fevers. She further denies any known sick contacts. Additionally she denies any nausea, diaphoresis or sensation of being lightheaded. She is awake, alert and nontoxic-appearing. Review of Systems: Review of Systems: Constitutional: Denies fever or chills. [] Eyes: Denies change in visual acuity. [] HENT: Denies nasal congestion or sore throat. [] Respiratory: Reports cough or shortness of breath. [] Cardiovascular: Reports chest pain. Denies edema. [] GI: Denies abdominal pain, nausea, vomiting, bloody stools or diarrhea. [] : Denies dysuria. [] Musculoskeletal: Reports extremity pain. Denies back pain or joint pain. [] Integument: Denies rash. [] Neurologic: Denies headache, focal weakness or sensory changes. [] Endocrine: Denies polyuria or polydipsia. [] Lymphatic: Denies swollen glands. [] Psychiatric: Denies depression or anxiety. [] Current Medications: Current Medications Medications (Trade) Dose Ordered Sig/Eugene Start Time Stop Time Status Last Admin Dose Admin Aspirin (Aspirin Chewable) 324 mg 1X ONCE 01/24/21 10:00 01/24/21 10:01 DC 01/24/21 10:21 324 MG Morphine Sulfate (Morphine Sulfate) 2 mg PRN Q2HR PRN 01/24/21 11:00 01/25/21 10:59 UNV Nitroglycerin (Nitrostat) 0.4 mg PRN Q5MIN PRN 01/24/21 11:00 01/25/21 10:59 UNV Ondansetron HCl (Zofran) 4 mg PRN Q8HRS PRN 01/24/21 11:00 01/25/21 10:59 UNV Allergies: Allergies: Allergies Coded Allergies Type Severity Reaction Last Updated Verified labetalol Allergy Intermediate 05/05/17 Yes Physical Exam: PE: Constitutional: Well developed, well nourished, no acute distress, non-toxic appearance. [] HENT: Normocephalic, atraumatic, bilateral external ears normal, oropharynx moist, no oral exudates, nose normal. [] Eyes: PERRLA, EOMI, conjunctiva normal, no discharge. [] Neck: Normal range of motion, no tenderness, supple, no stridor. [] Cardiovascular:Heart rate regular rhythm, no murmur [] Lungs & Thorax: Bilateral breath sounds clear to auscultation [] Abdomen: Bowel sounds normal, soft, no tenderness, no masses, no pulsatile masses. [] Skin: Warm, dry, no erythema, no rash. [] Back: No tenderness, no CVA tenderness. [] Extremities: No tenderness, no cyanosis, no clubbing, ROM intact, no edema. [] Neurologic: Alert and oriented X 3, normal motor function, normal sensory function, no focal deficits noted. [] Psychologic: Affect normal, judgement normal, mood normal. [] Current Patient Data: Labs: Laboratory Tests Test 01/24/21 09:52 White Blood Count 9.6 x10^3/uL (4.0-11.0) Red Blood Count 4.67 x10^6/uL (3.50-5.40) Hemoglobin 12.8 g/dL (12.0-15.5) Hematocrit 38.5 % (36.0-47.0) Mean Corpuscular Volume 82 fL (79-100) Mean Corpuscular Hemoglobin 27 pg (25-35) Mean Corpuscular Hemoglobin Concent 33 g/dL (31-37) Red Cell Distribution Width 14.9 % (11.5-14.5) H Platelet Count 302 x10^3/uL (140-400) Neutrophils (%) (Auto) 65 % (31-73) Lymphocytes (%) (Auto) 25 % (24-48) Monocytes (%) (Auto) 8 % (0-9) Eosinophils (%) (Auto) 2 % (0-3) Basophils (%) (Auto) 0 % (0-3) Neutrophils # (Auto) 6.3 x10^3/uL (1.8-7.7) Lymphocytes # (Auto) 2.4 x10^3/uL (1.0-4.8) Monocytes # (Auto) 0.8 x10^3/uL (0.0-1.1) Eosinophils # (Auto) 0.1 x10^3/uL (0.0-0.7) Basophils # (Auto) 0.0 x10^3/uL (0.0-0.2) Sodium Level 139 mmol/L (136-145) Potassium Level 3.4 mmol/L (3.5-5.1) L Chloride Level 103 mmol/L (98-107) Carbon Dioxide Level 26 mmol/L (21-32) Anion Gap 10 (6-14) Blood Urea Nitrogen 27 mg/dL (7-20) H Creatinine 1.2 mg/dL (0.6-1.0) H Estimated GFR (Cockcroft-Gault) 42.3 BUN/Creatinine Ratio 23 (6-20) H Glucose Level 184 mg/dL (70-99) H Calcium Level 8.9 mg/dL (8.5-10.1) Total Bilirubin 0.9 mg/dL (0.2-1.0) Aspartate Amino Transferase (AST) 14 U/L (15-37) L Alanine Aminotransferase (ALT) 17 U/L (14-59) Alkaline Phosphatase 83 U/L (46-116) Troponin I Quantitative < 0.017 ng/mL (0.000-0.055) UV-Jsh-I-Type Natriuretic Peptide 1057 pg/mL (0-449) H Total Protein 7.2 g/dL (6.4-8.2) Albumin 3.2 g/dL (3.4-5.0) L Albumin/Globulin Ratio 0.8 (1.0-1.7) L Laboratory Tests 01/24/21 09:52 Laboratory Tests 01/24/21 09:52 Vital Signs: Vital Signs Date Time Temp Pulse Resp B/P (MAP) Pulse Ox O2 Delivery O2 Flow Rate FiO2 01/24/21 09:40 97.4 84 20 220/109 (146) 98 Room Air 97.4 EKG: EKG: EKG was obtained at 9:44 AM and revealed a normal sinus rhythm with a ventricular rate of 65 bpm. There are no acute ST/T wave changes to denote ischemia. [] Repeat EKG was obtained at 10:19 AM and revealed a normal sinus rhythm with a ventricular rate of 71 bpm with left axis deviation. There are no acute ST/T wave changes to denote ischemia. Heart Score: C/O Chest Pain: Yes HEART Score for Chest Pain: HEART Score for Chest Pain Response (Comments) Value History Moderately Suspicious 1 ECG Normal 0 Age > 65 2 Risk Factors 1 or 2 Risk Factors 1 Troponin < Normal Limit 0 Total 4 Risk Factors: Risk Factors: DM, Current or recent (<one month) smoker, HTN, HLP, family hist ory of CAD, obesity. Risk Scores: Score 0 - 3: 2.5% MACE over next 6 weeks - Discharge Home Score 4 - 6: 20.3% MACE over next 6 weeks - Admit for Clinical Observation Score 7 - 10: 72.7% MACE over next 6 weeks - Early Invasive Strategies Radiology/Procedures: Radiology/Procedures: [] Impression: [facility] [address] [place] [address] IMAGING REPORT Signed PATIENT: NATHANIEL SCHMID ACCOUNT: [id number] : 1930 LOCATION: ER AGE: 89 SEX: F EXAM STATUS: REG ER ORD. PHYSICIAN: MAY VILLA DO REASON: Chest pain PROCEDURE: PORTABLE CHEST 1V XR CHEST 1V History: Reason: Chest pain / Spl. Instructions: / History: Comparison: August 02, 2020 Findings: Low lung volumes. Linear right basilar opacity, likely atelectasis or scarring. No pleural effusion. No pneumothorax. Normal heart size. Prior granulomatous disease within the chest. Postop changes right mid humerus. Impression: 1. No acute cardiopulmonary process. Electronically signed by: Juan F Lafleur DO (01/24/2021 10:45 AM) [facility] DICTATED and SIGNED BY: JUAN F LAFLEUR DO DATE: 01/24/21 [id number] Course & Med Decision Making: Course & Med Decision Making Pertinent Labs and Imaging studies reviewed. (See chart for details) [] Viktoriya Disclaimer: Viktoriya Disclaimer: This electronic medical record was generated, in whole or in part, using a voice recognition dictation system. Departure Departure Impression: Primary Impression: Chest pain Additional Impression: Poorly-controlled hypertension Disposition: ADMITTED INPATIENT Admitting Physician: HIMS Condition: STABLE Referrals: ERVIN JOE MD (PCP) Problem Qualifiers MAY VILLA DO Jan 24, 2021 09:55
[2021-01-24] MEDS ORDERED: ASPIRIN CHEWABLE 81 MG TABLET. PO ONE (10:00)
[2021-01-24 10:06] LABS: BASO % 0 % (0-3); EOS # 0.1 x10^3/uL (0.0-0.7); EOS % 2 % (0-3); HEMATOCRIT 38.5 % (36.0-47.0); HEMOGLOBIN 12.8 g/dL (12.0-15.5); LYMPH # 2.4 x10^3/uL (1.0-4.8); LYMPH % 25 % (24-48); MEAN CORPUSCULAR HEMOGLOBIN 27 pg (25-35); MEAN CORPUSCULAR HGB CONC 33 g/dL (31-37); MEAN CORPUSCULAR VOLUME 82 fL (79-100); MONO # 0.8 x10^3/uL (0.0-1.1); MONO % 8 % (0-9); NEUT # 6.3 x10^3/uL (1.8-7.7); NEUT % 65 % (31-73); PLATELET COUNT 302 x10^3/uL (140-400); RED BLOOD COUNT 4.67 x10^6/uL (3.50-5.40); RED CELL DISTRIBUTION WIDTH 14.9 % (11.5-14.5); WHITE BLOOD COUNT 9.6 x10^3/uL (4.0-11.0)
[2021-01-24 10:29] LABS: CALCIUM 8.9 mg/dL (8.5-10.1); CREATININE 1.2 mg/dL (0.6-1.0); GFR 42.3; POTASSIUM 3.4 mmol/L (3.5-5.1)
[2021-01-24 10:33] LABS: ALBUMIN 3.2 g/dL (3.4-5.0); ALBUMIN/GLOBULIN RATIO 0.8 (1.0-1.7); TOTAL BILIRUBIN 0.9 mg/dL (0.2-1.0); TOTAL PROTEIN 7.2 g/dL (6.4-8.2)
--- NOTE | 2021-01-24 10:48 | RAD ---
XR CHEST 1V History: Reason: Chest pain / Spl. Instructions: / History: Comparison: August 02, 2020 Findings: Low lung volumes. Linear right basilar opacity, likely atelectasis or scarring. No pleural effusion. No pneumothorax. Normal heart size. Prior granulomatous disease within the chest. Postop changes righ t mid humerus. Impression: 1. No acute cardiopulmonary process. Electronically signed by: Juan F Lafleur DO (01/24/2021 10:45 AM) [facility]
--- NOTE | 2021-01-24 10:51 | PDOC1 ---
History and Physical Date of Admission Date of Admission DATE: 01/24/21 TIME: 10:50 Identification/Chief Complaint Chief Complaint chest pain History of Present Illness History of Present Illness 89-year-old female who arrived ambulatory to the emergency department ivan mac of developing left-sided chest pain sometime around 8:00 this morning. Patient reports in addition to this pain she experienced shortness of air and does not feel as if she can catch her breath. Patient states that the pain is migrating down her left upper extremity to her left hand and she has pain from time to time since this started. Patient also reports to a dry cough denies any fevers. troponin i neg x 2 IMPRESSION ANGINA, WITH typical and atypical symptoms hypertension, uncontrolled hyperlipidemia GERD plan== ECHO / bp control / home meds /PROTONIX 40 MG PO DAILY DVT PROPHYLAXIS Outpatient ischemia evaluation based on clinical course. START NORVASC 10 MG PO DAILY Past Medical History Past Medical History Past Medical History Past Medical History: Cancer, Diabetes-Type II, Diverticulitis, High Cholesterol, Hypertension, UTI Additional Past Medical Histor: CURRENT/HX OF BREAST CA; covid 19 Past Surgical History: Knee Replacement Additional Past Surgical Histo: RIGHT HUMERUS,LEFT BREAST LUMPECTOMY Smoking Status: Never Smoker Alcohol Use: None Drug Use: None Cardiovascular: HTN, Hyperlipidemia GI: Diverticulosis, GERD Heme/Onc: No pertinent hx, Cancer Hepatobiliary: No pertinent hx Psych: No pertinent hx Musculoskeletal: Osteoarthritis Rheumatologic: Gout Renal/: Chronic renal insuff, UTI, Other Endocrine: Diabetes Past Surgical History Past Surgical History: Arthroscopy, Cholecystectomy, Cataract Removal, Total knee replacement, Hysterectomy, Other Family History Family History SISTER WITH HX OVARIAN CA Family History: Cancer, Diabetes, High Cholestrol Social History Smoke: No ALCOHOL: none Drugs: None Current Problem List Problem List Problems Medical Problems: (1) Chest pain Status: Acute (2) Poorly-controlled hypertension Status: Acute Current Medications Current Medications Current Medications Aspirin (Aspirin Chewable) 324 mg 1X ONCE PO Last administered on 01/24/21at 10 :21; Start 01/24/21 at 10:00; Stop 01/24/21 at 10:01; Status DC Active Scripts Active Hydrocodone-Apap 5-325 (Hydrocodone Bit/Acetaminophen) 1 Tab Tablet 1 Tab PO PRN Q6HRS PRN Ktlulmxd-Crlglajyu-Ny Ear Susp (Neomycin/Polymyxin B Sulf/Hc) 10 Ml Drops.susp 4 Drop AD TID 5 Days Augmentin 875-125 Tablet (Amoxicillin/Potassium Clav) 1 Each Tablet 1 Tab PO BID 7 Days Milk Of Magnesia (Magnesium Hydroxide) 400 Mg/5 Ml Oral.susp 400 Mg PO QHS 5 Days Reported Eliquis (Apixaban) 5 Mg Tablet 5 Mg PO BID Diphenhydramine Hcl 25 Mg Tablet 1 Tab PO PRN BID PRN 30 Days Januvia (Sitagliptin Phosphate) 50 Mg Tablet 25 Tab PO DAILY Allopurinol 300 Mg Tablet 1 Tab PO DAILY Femara (Letrozole) 2.5 Mg Tablet 1 Tab PO DAILY 30 Days Metformin Hcl Er (Metformin Hcl) 500 Mg Tab.er.24h 500 Mg PO BIDWMEALS Lisinopril 20 Mg Tablet 1 Tab PO DAILY Amlodipine Besylate 10 Mg Tablet 10 Mg PO DAILY Allergies Allergies: Coded Allergies: labetalol (Verified Allergy, Intermediate, 05/05/17) Patient can't remember the name of the medication but able to find it on previous record in [facility] 05/2013. ROS General: No: Chills, Night Sweats, Fatigue, Malaise, Appetite, Other PSYCHOLOGICAL ROS: No: Anxiety, Behavioral Disorder, Concentration difficultie, Decreased libido, Depression, Disorientation, Hallucinations, Hostility, Irritablity, Memory difficulties, Mood Swings, Obsessive thoughts, Physical a buse, Sexual abuse, Sleep disturbances, Suicidal ideation, Other Eyes: No Blurry vision, No Decreased vision, No Double vision, No Dry eyes, No Excessive tearing, No Eye Pain, No Itchy Eyes, No Loss of vision, No Photophobia, No Scotomata, No Uses contacts, No Uses glasses, No Other HEENT: YES: Heacaches; No: Visual Changes, Hearing change, Nasal congestion, Nasal discharge, Oral lesions, Sinus pain, Sore Throat, Epistaxis, Sneezing, Snoring, Tinnitus, Vertigo, Vocal changes, Other ALLERGY AND IMMUNOLOGY: No: Hives, Insect Bite Sensitivity, Itchy/Watery Eyes, Nasal Congestion, Post Nasal Drip, Seasonal Allergies, Other Hematological and Lymphatic: No: Bleeding Problems, Blood Clots, Blood Transfusions, Brusing, Night Sweats, Pallor, Swollen Lymph Nodes, Other ENDOCRINE: No: Breast Changes, Galactorrhea, Hair Pattern Changes, Hot Flashes, Malaise/lethargy, Mood Swings, Palpitations, Polydipsia/polyuria, Skin Changes, Temperature Intolerance, Unexpected Weight Changes, Other Breast: No New/Changing Breast Lumps, No Nipple changes, No Nipple discharge, No Other Respiratory: No: Cough, Hemoptysis, Orthopnea, Pleuritic Pain, Shortness of breath, SOB with excertion, Sputum Changes, Stridor, Tachypnea, Wheezing, Other Cardiovascular: yes Chest Pain; No Palpitations, No Orthopnea, No Paroxysmal Noc. Dyspnea, No Edema, No Lt Headedness, No Other Gastrointestinal: No Nausea, No Vomiting, No Abdominal Pain, No Diarrhea, No Constipation, No Melena, No Hematochezia, No Other Genitourinary: No Dysuria, No Frequency, No Incontinence, No Hematuria, No Retention, No Discharge, No Urgency, No Pain, No Flank Pain, No Other, No , No , No , No , No , No , No Musculoskeletal: Yes Joint Stiffness; No Gait Disturbance, No Joint Pain, No Joint Swelling, No Muscle Pain, No Muscular Weakness, No Pain In:, No Swelling In:, No Other Neurological: No Behavorial Changes, No Bowel/Bladder ControlChng, No Confusion, No Dizziness, No Gait Disturbance, No Headaches, No Impaired Coord/balance, No Memory Loss, No Numbness/Tingling, No Seizures, No Speech Problems, No Tremors, No Visual Changes, No Weakness, No Other Skin: No Dry Skin, No Eczema, No Hair Changes, No Lumps, No Mole Changes, No Mottling, No Nail Changes, No Pruritus, No Rash, No Skin Lesion Changes, No Other, No Acne Physical Exam General: Alert, Oriented X3, Cooperative, No acute distress HEENT: PERRLA, EOMI, Mucous membr. moist/pink Lungs: Clear to auscultation, Normal air movement Heart: RRR, no thrills, no gallops, no murmurs Cardiovascular: S1 Breasts: Not examined Abdomen: Normal bowel sounds, Soft Rectal Exam: not examined PELVIC: Examination not indicated Extremities: No cyanosis Skin: No rashes Neuro: Normal speech, Cranial nerves 3-12 NL Psych/Mental Status: Mental status NL, Mood NL Vitals Vitals Vital Signs Date Time Temp Pulse Resp B/P (MAP) Pulse Ox O2 Delivery O2 Flow Rate FiO2 01/24/21 09:40 97.4 84 20 220/109 (146) 98 Room Air 97.4 Labs Labs Laboratory Tests Test 01/24/21 09:52 White Blood Count 9.6 x10^3/uL (4.0-11.0) Red Blood Count 4.67 x10^6/uL (3.50-5.40) Hemoglobin 12.8 g/dL (12.0-15.5) Hematocrit 38.5 % (36.0-47.0) Mean Corpuscular Volume 82 fL (79-100) Mean Corpuscular Hemoglobin 27 pg (25-35) Mean Corpuscular Hemoglobin Concent 33 g/dL (31-37) Red Cell Distribution Width 14.9 % (11.5-14.5) Platelet Count 302 x10^3/uL (140-400) Neutrophils (%) (Auto) 65 % (31-73) Lymphocytes (%) (Auto) 25 % (24-48) Monocytes (%) (Auto) 8 % (0-9) Eosinophils (%) (Auto) 2 % (0-3) Basophils (%) (Auto) 0 % (0-3) Neutrophils # (Auto) 6.3 x10^3/uL (1.8-7.7) Lymphocytes # (Auto) 2.4 x10^3/uL (1.0-4.8) Monocytes # (Auto) 0.8 x10^3/uL (0.0-1.1) Eosinophils # (Auto) 0.1 x10^3/uL (0.0-0.7) Basophils # (Auto) 0.0 x10^3/uL (0.0-0.2) Sodium Level 139 mmol/L (136-145) Potassium Level 3.4 mmol/L (3.5-5.1) Chloride Level 103 mmol/L (98-107) Carbon Dioxide Level 26 mmol/L (21-32) Anion Gap 10 (6-14) Blood Urea Nitrogen 27 mg/dL (7-20) Creatinine 1.2 mg/dL (0.6-1.0) Estimated GFR (Cockcroft-Gault) 42.3 BUN/Creatinine Ratio 23 (6-20) Glucose Level 184 mg/dL (70-99) Calcium Level 8.9 mg/dL (8.5-10.1) Total Bilirubin 0.9 mg/dL (0.2-1.0) Aspartate Amino Transf (AST/SGOT) 14 U/L (15-37) Alanine Aminotransferase (ALT/SGPT) 17 U/L (14-59) Alkaline Phosphatase 83 U/L (46-116) Troponin I Quantitative < 0.017 ng/mL (0.000-0.055) RM-[id number]-[id number]-Type Natriuretic Peptide 1057 pg/mL (0-449) Total Protein 7.2 g/dL (6.4-8.2) Albumin 3.2 g/dL (3.4-5.0) Albumin/Globulin Ratio 0.8 (1.0-1.7) Laboratory Tests Test 01/24/21 09:52 White Blood Count 9.6 x10^3/uL (4.0-11.0) Red Blood Count 4.67 x10^6/uL (3.50-5.40) Hemoglobin 12.8 g/dL (12.0-15.5) Hematocrit 38.5 % (36.0-47.0) Mean Corpuscular Volume 82 fL (79-100) Mean Corpuscular Hemoglobin 27 pg (25-35) Mean Corpuscular Hemoglobin Concent 33 g/dL (31-37) Red Cell Distribution Width 14.9 % (11.5-14.5) Platelet Count 302 x10^3/uL (140-400) Neutrophils (%) (Auto) 65 % (31-73) Lymphocytes (%) (Auto) 25 % (24-48) Monocytes (%) (Auto) 8 % (0-9) Eosinophils (%) (Auto) 2 % (0-3) Basophils (%) (Auto) 0 % (0-3) Neutrophils # (Auto) 6.3 x10^3/uL (1.8-7.7) Lymphocytes # (Auto) 2.4 x10^3/uL (1.0-4.8) Monocytes # (Auto) 0.8 x10^3/uL (0.0-1.1) Eosinophils # (Auto) 0.1 x10^3/uL (0.0-0.7) Basophils # (Auto) 0.0 x10^3/uL (0.0-0.2) Sodium Level 139 mmol/L (136-145) Potassium Level 3.4 mmol/L (3.5-5.1) Chloride Level 103 mmol/L (98-107) Carbon Dioxide Level 26 mmol/L (21-32) Anion Gap 10 (6-14) Blood Urea Nitrogen 27 mg/dL (7-20) Creatinine 1.2 mg/dL (0.6-1.0) Estimated GFR (Cockcroft-Gault) 42.3 BUN/Creatinine Ratio 23 (6-20) Glucose Level 184 mg/dL (70-99) Calcium Level 8.9 mg/dL (8.5-10.1) Total Bilirubin 0.9 mg/dL (0.2-1.0) Aspartate Amino Transf (AST/SGOT) 14 U/L (15-37) Alanine Aminotransferase (ALT/SGPT) 17 U/L (14-59) Alkaline Phosphatase 83 U/L (46-116) Troponin I Quantitative < 0.017 ng/mL (0.000-0.055) KM-[id number]-U-Type Natriuretic Peptide 1057 pg/mL (0-449) Total Protein 7.2 g/dL (6.4-8.2) Albumin 3.2 g/dL (3.4-5.0) Albumin/Globulin Ratio 0.8 (1.0-1.7) Images Images ECHOCARDIOGRAM ECHOCARDIOGRAM <Conclusion> The left ventricle is normal size. The left ventricular systolic function is normal and the ejection fraction is within normal range. The Ejection Fraction is 60-65%. There is mild concentric left ventricular hypertrophy. Doppler and Color Flow revealed no significant aortic regurgitation. There is no significant aortic valvular stenosis. Doppler and Color-flow revealed trace mitral regurgitation. Doppler and Color Flow revealed trace tricuspid regurgitation. The PA pressure was estimated at 40 mmHg. DATE: 06/28/20 1345 PATIENT: NATHANIEL SCHMID ACCOUNT: [id number] : 1930 LOCATION: ER AGE: 89 SEX: F EXAM STATUS: REG ER ORD. PHYSICIAN: MAY VILLA DO REASON: Chest pain PROCEDURE: PORTABLE CHEST 1V XR CHEST 1V History: Reason: Chest pain / Spl. Instructions: / History: Comparison: August 02, 2020 Findings: Low lung volumes. Linear right basilar opacity, likely atelectasis or scarring. No pleural effusion. No pneumothorax. Normal heart size. Prior granulomatous disease within the chest. Postop changes right mid humerus. Impression: 1. No acute cardiopulmonary process. Electronically signed by: Juan F Lafleur DO (01/24/2021 10:45 AM) [facility] DICTATED and SIGNED BY: JUAN F LAFLEUR DO DATE: 01/24/21 [id number] VTE Prophylaxis Ordered VTE Prophylaxis Devices: Yes VTE Pharmacological Prophylaxi: Yes Assessment/Plan Assessment/Plan impression ANGINA, WITH typical and atypical symptoms hypertension, uncontrolled hyperlipidemia GERD plan== admit cvc bed trend troponin i consult cardiology ECHO bp control home meds PROTONIX 40 MG PO DAILY DVT PROPHYLAXIS Outpatient ischemia evaluation based on clinical course. START NORVASC 10 MG PO DAILY d/w er Justifications for Admission Other Justification BREANNA CORDOVA MD Jan 24, 2021 10:51
[2021-01-24] MEDS ORDERED: NITROGLYCERIN SUBLINGUAL 0.4 MG BOTTLE OF 25. SL PRN (11:00)
[2021-01-24] MEDS ORDERED: MORPHINE SULFATE 2 MG/ML VIAL. IV PRN (11:00)
[2021-01-24] MEDS ORDERED: ONDANSETRON PF 4 MG/2 ML VIAL. IV PRN ×2 (11:00→17:15)
--- NOTE | 2021-01-24 12:43 | NUR ---
Patient admit to floor around 1230 via the ER admit BP 224/84. Page sent to MD Jordon orders received. Gauge And Weigh Machine Adjuster called down to speak with [employer]ID[employer] MACHINE OPERATOR Tamiko in regards to BP. Nurse stated that they would not treat that BP in the ED.
[2021-01-24] MEDS ORDERED: hydrALAZINE 20 MG/ML VIAL. IVP PRN (13:00)
[2021-01-24] MEDS: LISINOPRIL 10 MG TABLET PO SCH (13:11)
--- NOTE | 2021-01-24 13:13 | NUR ---
Patient stated that she stop taking her BP medications per her PCP about four months ago. Conservation Coordinator spoke with Daisy her pharmacy that she used to fill her medications and was able to obtain her BP medication that she was prescribed, patient could not remember and daughter was unavailable to be reach. Patient restarted on lisinopril and amlodipine that the patient was originally taking. Pharmacy state that she last picked up those medication in May of 2020.
--- NOTE | 2021-01-24 13:34 | PDOC2 ---
CARDIAC CONSULT DATE OF CONSULT Date of Consult DATE: 01/24/21 TIME: 13:10 REASON FOR CONSULT Reason for Consult: chest pain REFERRING PHYSICIAN Referring Physician: fullbright SOURCE Source: Chart review, Patient HISTORY OF PRESENT ILLNESS HISTORY OF PRESENT ILLNESS This is a pleasant 89 yo female admitted for complains of chest pain. Reports he has been having left sided chest pain but no associated nausea vomiting, SOA coughing and no recent falls. Denies any past CAD or VTE. Her BP was significnatly elevated upon admission and noted that she has stopped taking her BP meds few months and was told that she could stop some of it. Unclear about this and being clarified through her PCP office with Dr. Hutson. She has had Colvid-19 last yr and does not want any vaccines. PAST MEDICAL HISTORY Past Medical History Cardiovascular: HTN Pulmonary: Covid-19 GI: Diverticulosis Heme/Onc: Cancer (Left breast cancer, she does not remember staging. Pt said it was in lower inner quadrant and was the size of a rekha. She does not think lymph nodes were removed.) Rheumatologic: Gout Endocrine: Diabetes PAST SURGICAL HISTORY Past Surgical History Cholecystectomy, Total knee replacement, Hysterectomy FAMILY HISTORY Family History Cancer (Sister from ovarian cancer, nephew had colon cancer, and youngest sister also has breast cancer. ), Diabetes SOCIAL HISTORY Smoke: No ALCOHOL: none Drugs: None Lives: with Family CURRENT MEDICATIONS CURRENT MEDICATIONS Current Medications Medications (Trade) Dose Ordered Sig/[place] Route PRN Reason Start Time Stop Time Status Last Admin Dose Admin Aspirin (Aspirin Chewable) 324 mg 1X ONCE PO 01/24/21 10:00 01/24/21 10:01 DC 01/24/21 10:21 ALLERGIES ALLERGIES: Coded Allergies: labetalol (Verified Allergy, Intermediate, 05/05/17) Patient can't remember the name of the medication but able to find it on previous record in [facility] 05/2013. ROS Review of System 14 point ROS evaluated with pertinent positives noted per HPI PHYSICAL EXAM General: Alert, Oriented X3, Cooperative, No acute distress HEENT: Mucous membr. moist/pink Lungs: Clear to auscultation, Normal air movement Heart: Regular rate (SR), Normal S1, Normal S2, No murmurs Abdomen: Soft, No tenderness Extremities: No cyanosis, No edema Skin: No breakdown, No significant lesion Neuro: Normal speech, Sensation intact Psych/Mental Status: Mental status NL, Mood NL MUSCULOSKELETAL: Osteoarthritic changes both hands VITALS/I&O VITALS/I&O: Vital Signs Date Time Temp Pulse Resp B/P (MAP) Pulse Ox O2 Delivery O2 Flow Rate FiO2 01/24/21 12:15 98.4 61 20 195/93 (127) 97 Room Air 98.4 LABS Lab: Laboratory Tests Test 01/24/21 09:52 White Blood Count 9.6 x10^3/uL (4.0-11.0) Red Blood Count 4.67 x10^6/uL (3.50-5.40) Hemoglobin 12.8 g/dL (12.0-15.5) Hematocrit 38.5 % (36.0-47.0) Mean Corpuscular Volume 82 fL (79-100) Mean Corpuscular Hemoglobin 27 pg (25-35) Mean Corpuscular Hemoglobin Concent 33 g/dL (31-37) Red Cell Distribution Width 14.9 % (11.5-14.5) H Platelet Count 302 x10^3/uL (140-400) Neutrophils (%) (Auto) 65 % (31-73) Lymphocytes (%) (Auto) 25 % (24-48) Monocytes (%) (Auto) 8 % (0-9) Eosinophils (%) (Auto) 2 % (0-3) Basophils (%) (Auto) 0 % (0-3) Neutrophils # (Auto) 6.3 x10^3/uL (1.8-7.7) Lymphocytes # (Auto) 2.4 x10^3/uL (1.0-4.8) Monocytes # (Auto) 0.8 x10^3/uL (0.0-1.1) Eosinophils # (Auto) 0.1 x10^3/uL (0.0-0.7) Basophils # (Auto) 0.0 x10^3/uL (0.0-0.2) Sodium Level 139 mmol/L (136-145) Potassium Level 3.4 mmol/L (3.5-5.1) L Chloride Level 103 mmol/L (98-107) Carbon Dioxide Level 26 mmol/L (21-32) Anion Gap 10 (6-14) Blood Urea Nitrogen 27 mg/dL (7-20) H Creatinine 1.2 mg/dL (0.6-1.0) H Estimated GFR (Cockcroft-Gault) 42.3 BUN/Creatinine Ratio 23 (6-20) H Glucose Level 184 mg/dL (70-99) H Calcium Level 8.9 mg/dL (8.5-10.1) Total Bilirubin 0.9 mg/dL (0.2-1.0) Aspartate Amino Transferase (AST) 14 U/L (15-37) L Alanine Aminotransferase (ALT) 17 U/L (14-59) Alkaline Phosphatase 83 U/L (46-116) Troponin I Quantitative < 0.017 ng/mL (0.000-0.055) [id number] Natriuretic Peptide 1057 pg/mL (0-449) H Total Protein 7.2 g/dL (6.4-8.2) Albumin 3.2 g/dL (3.4-5.0) L Albumin/Globulin Ratio 0.8 (1.0-1.7) L Laboratory Tests 01/24/21 09:52 Laboratory Tests 01/24/21 09:52 ECHOCARDIOGRAM ECHOCARDIOGRAM <Conclusion> The left ventricle is normal size. The left ventricular systolic function is normal and the ejection fraction is within normal range. The Ejection Fraction is 60-65%. There is mild concentric left ventricular hypertrophy. Doppler and Color Flow revealed no significant aortic regurgitation. There is no significant aortic valvular stenosis. Doppler and Color-flow revealed trace mitral regurgitation. Doppler and Color Flow revealed trace tricuspid regurgitation. The PA pressure was estimated at 40 mmHg. DATE: 06/28/20 1345 ASSESSMENT/PLAN ASSESSMENT/PLAN 1. Atypical chest pain: suspect MSK, reproducible. Recent EF/WM nml 2. HTN urgency 3. Suspect CKD3: Cr at baseline 4. DM2: per PCP 5. HLP Recommendations 1. Trend troponin 2. Continue ASA. Restart home BP meds. Hydralazine IV PRN 3. FLP, TSH, A1C. 4. Outpt ischemic w/u LUCIEN PAUL BRAND STRATEGY MANAGER Jan 24, 2021 13:34
[2021-01-24] MEDS ORDERED: POTASSIUM CHLORIDE 20 MEQ TABLET.ER. PO ONE (13:45)
[2021-01-24] MEDS: ASPIRIN ENTERIC COATED 81 MG TABLET.DR. PO SCH (14:00)
[2021-01-24 14:38] LABS: CHOLESTEROL/HDL RATIO 3.8
--- NOTE | 2021-01-24 14:58 | NUR ---
81 ASA non admin on this shift, was given in the ED on arrival.
[2021-01-24] MEDS: PANTOPRAZOLE 40 MG TABLET.DR. PO SCH (16:41)
[2021-01-24] MEDS: HYDROcodone/APAP 5/325MG 1 TAB TABLET PO PRN ×2 (16:42→21:32)
[2021-01-24] MEDS ORDERED: guaiFENesin ORAL 200 MG/10 ML LIQUID. PO PRN (17:15)
[2021-01-24] MEDS ORDERED: SODIUM PHOSPHATES 19/7GM 133 ML ENEMA. PR PRN (17:15)
[2021-01-24] MEDS ORDERED: LORazepam 0.5 MG TABLET PO PRN (17:15)
[2021-01-24] MEDS ORDERED: ACETAMINOPHEN 325 MG TABLET. PO PRN (17:15)
[2021-01-24] MEDS ORDERED: 0.9 % SODIUM CHLORIDE 10 ML DISP.SYRIN. IV PRN (17:15)
[2021-01-24] MEDS ORDERED: MAG HYDROX/ALUMINUM HYD/SIMETH 30 ML ORAL.SUSP PO PRN (17:15)
[2021-01-24] MEDS ORDERED: ALBUTEROL SULFATE 2.5 MG/3 ML NEBU. NEB PRN (17:15)
[2021-01-24] MEDS ORDERED: DOCUSATE SODIUM 100 MG CAPSULE. PO PRN (17:15)
--- NOTE | 2021-01-24 17:25 | EKG ---
[facility] [address] [place] [address] Test Date: 2021-01-24 Test Time: 09:44:17 Pat Name: NATHANIEL SCHMID Department: Room: Gender: F Center Manager: : 1930 Requested By: MAY VILLA Order Number: [id number] Reading MD: Measurements Intervals [place] Rate: 65 P: 90 TN: 170 QRS: 12 QRSD: 98 T: 19 QT: 410 QTc: 427 Interpretive Statements SINUS RHYTHM QRS(T) CONTOUR ABNORMALITY CONSIDER ANTEROLATERAL MYOCARDIAL DAMAGE POSSIBLY ABNORMAL ECG RI6.01 No previous ECG available for comparison
--- NOTE | 2021-01-24 18:09 | EKG ---
[facility] [address] [place] [address] Test Date: 2021-01-24 Test Time: 10:19:01 Pat Name: NATHANIEL SCHMID Department: Room: 260 1 Gender: F Communications Intern: : 1930 Requested By: MAY VILLA Order Number: [id number] Reading MD: Measurements Intervals [place] Rate: 71 P: 56 IN: 178 QRS: 0 QRSD: 96 T: 12 QT: 412 QTc: 453 Interpretive Statements SINUS RHYTHM LEFTWARD AXIS OTHERWISE NORMAL ECG RI6.01 Compared to ECG 01/24/2021 09:44:17 Left-axis deviation now present
[2021-01-24] MEDS ORDERED: ENOXAPARIN 30 MG/0.3 ML SYRINGE. SQ SCH (21:00)
[2021-01-24] MEDS ORDERED: ATORVASTATIN CALCIUM 20 MG TABLET PO SCH (21:00)
[2021-01-25 02:28] VITALS: BP 133/67
[2021-01-25 07:00] VITALS: BP 127/60
[2021-01-25] MEDS: PANTOPRAZOLE 40 MG TABLET.DR. PO SCH (08:00)
[2021-01-25] MEDS ORDERED: AMLO-187 PO (08:52)
[2021-01-25] MEDS ORDERED: ASPI-886 PO (08:52)
[2021-01-25] MEDS ORDERED: LISI10TA16 PO (08:52)
[2021-01-25] MEDS ORDERED: ATOR20TA58 PO (08:52)
--- NOTE | 2021-01-25 08:54 | DISCH ---
DISCHARGE INSTRUCTIONS Condition on Discharge Condition on Discharge: Stable Activity After Discharge Activity Instructions for Disc: Activity as tolerated Bathing Instructions: No Tub Bath until see Lifting Instructions after Dis: No heavy lifting Exercise Instruction after Dis: Progress as tolerated Driving Instructions after Dis: Do not drive today Weight Bearing Status after Di: As tolerated Diet after Discharge Diet after Discharge: Cardiac Diet Texture: Regular Liquid Texture: Thin Liquid Swallowing Supervision: None needed Wound Incision Care Wound/Incision Care: No wound care needed Checks after Discharge Checks after discharge: Check blood press - daily, Check blood sugar, ac/hs, Weigh Yourself Daily Contacting the DRJose after DC Call your doctor for: If your condition worsens Follow-Up Follow up with: PCP within 2 weeks of discharge Follow Up With: Cardiology as scheduled or needed Treatment/Equipment after DC Adaptive Equipment Issued: None ARMIDA CHRISTIANSON MD Jan 25, 2021 08:54
[2021-01-25] MEDS: ASPIRIN ENTERIC COATED 81 MG TABLET.DR. PO SCH (09:00)
[2021-01-25] MEDS: LISINOPRIL 10 MG TABLET PO SCH (09:01)
--- NOTE | 2021-01-25 10:19 | NUR ---
SS following for discharge planning. SS reviewed pt chart and discussed with pt RN. Pt is from home with daughter and is currently on room air. No PT/OT needs. Cardiology following. Probable discharge to home later today. SS will continue to follow for discharge planning.
[2021-01-25 10:54] VITALS: BP 140/66
--- NOTE | 2021-01-25 12:56 | PDOC ---
CARDIO Progress Notes Date and Time Date of Service 01/25/2021 Time of Evaluation 1230 Subjective Subjective: No Chest Pain, No shortness of breath, No Palpitations Vitals Vitals Vital Signs Date Time Temp Pulse Resp B/P (MAP) Pulse Ox O2 Delivery O2 Flow Rate FiO2 01/25/21 10:54 97.3 66 18 140/66 (90) 94 Room Air 97.3 Weight Weight [ ] Input and Output Intake and Output Intake and Output 01/25/21 07:00 Intake Total 300 ml Balance 300 ml Intake Oral 300 ml # Voids 1 Laboratory Labs Laboratory Tests Test 01/24/21 13:35 01/24/21 16:25 01/25/21 00:18 01/25/21 11:46 Troponin I Quantitative < 0.017 ng/mL (0.000-0.055) < 0.017 ng/mL (0.000-0.055) Glucose (Fingerstick) 205 mg/dL (70-99) 192 mg/dL (70-99) Physical Exam HEENT: Neck Supple W Full Motion Chest: Symmetric LUNGS: Clear to Auscultation Heart: RRR (SR) Abdomen: Soft N/T Extremities: No Calf Tenderness Neurology: alert, oriented, follow commands Assessment Assessment 1. Atypical chest pain: suspect MSK, reproducible. Recent EF/WM nml 2. HTN urgency: better 3. Suspect CKD3: Cr at baseline 4. DM2: uncontrolled A1C at 10, defer to PCP 5. HLP Recommendations 1. Outpt ischemic w/u. Discussed with RN and will relay this with her family. Follow up in office. 2. Continue ASA. Restart home BP meds. Hydralazine IV PRN 3. BMP, Mg today 4. Secondary prevention measures. Justicifation of Admission Dx: Justifications for Admission: Justification of Admission Dx: N/A LUCIEN PAUL DROSS PULLER Jan 25, 2021 12:56
[2021-01-25] MEDS ORDERED: METF500T16 PO ×2 (13:45→13:46)
[2021-01-25 13:54] LABS: CALCIUM 8.8 mg/dL (8.5-10.1); CREATININE 1.6 mg/dL (0.6-1.0); GFR 30.3; POTASSIUM 4.3 mmol/L (3.5-5.1)
[2021-01-25 15:00] VITALS: BP 129/65
--- NOTE | 2021-01-25 16:12 | NUR ---
Discharge Note: Patient was discharged home with self care. Patients daughter at the bedside during discharge education. Patients IV was discontinued without any complications per RN. Patient was given discharge summary/instructions, follow-ups, and educational material. Patient new prescriptions were sent and called into patients preferred pharmacy. Called cardiologies office to schedule Mini Scan, office stated they would call patient with date and time for mini scan and a follow-up appointment with Dr. Tavarez. Patient and daughter did not have any further questions or concerns. Patient was taken to the main entrance via wheelchair with all personal belongings accompanied by this RN and daughter, where her daughter drove their van over to take the patient home.
--- NOTE | 2021-01-29 07:38 | PDOC3 ---
[facility]-Discharge Summary Date of Admission: Date of Admission: Jan 24, 2021 Date of Discharge: Date of Discharge: Jan 25, 2021 Discharge Diagnosis: Discharge Diagnosis: 1. Atypical chest pain: suspect MSK, reproducible. Recent EF/WM nml 2. HTN urgency: better 3. Suspect CKD3: Cr at baseline 4. DM2: uncontrolled A1C at 10, defer to PCP 5. HLP Consults: Consults: Cardiology Recommendations 1. Outpt ischemic w/u. Discussed with RN and will relay this with her family. Follow up in office. 2. Continue ASA. Restart home BP meds. Hydralazine IV PRN 3. BMP, Mg today 4. Secondary prevention measures. Hospital Course: Hospital Course: 89-year-old female who arrived ambulatory to the emergency department complainin g of developing left-sided chest pain sometime around 8:00 this morning. Patient reports in addition to this pain she experienced shortness of air and does not feel as if she can catch her breath. Patient states that the pain is migrating down her left upper extremity to her left hand and she has pain from time to time since this started. Patient also reports to a dry cough denies any fevers. troponin i neg x 2 IMPRESSION ANGINA, WITH typical and atypical symptoms hypertension, uncontrolled hyperlipidemia GERD plan== ECHO / bp control / home meds /PROTONIX 40 MG PO DAILY DVT PROPHYLAXIS Outpatient ischemia evaluation based on clinical course. START NORVASC 10 MG PO DAILY By day of discharge, pt was clinically stable and ready for discharge. Rest of hospital course was uneventful Disposition: Disposition/Orders: D/C to Home Activity: Activity: Resume previous activity Medications: Home Meds Active Scripts Aspirin (ASPIRIN EC) 81 Mg Tablet.dr, 81 MG PO DAILYWBKFT for coronary artery disease for 30 Days, #30 TAB.SR Prov:ARMIDA CHRISTIANSON MD 01/25/21 Lisinopril (LISINOPRIL) 10 Mg Tablet, 10 MG PO DAILY for blood pressure for 30 Days, #30 TAB Prov:ARMIDA CHRISTIANSON MD 01/25/21 Amlodipine Besylate (AMLODIPINE BESYLATE) 10 Mg Tablet, 10 MG PO DAILY for blood pressure for 30 Days, #30 TAB Prov:ARMIDA CHRISTIANSON MD 01/25/21 Atorvastatin Calcium (ATORVASTATIN CALCIUM) 20 Mg Tablet, 20 MG PO QHS for cholesterol for 30 Days, #30 TAB Prov:ARMIDA CHRISTIANSON MD 01/25/21 Reported Medications Metformin Hcl (METFORMIN HCL) 500 Mg Tablet, 500 MG PO BIDWMEALS for ANTI- DIABETIC, TAB 0 Refills 01/25/21 Letrozole (FEMARA) 2.5 Mg Tablet, 1 TAB PO DAILY for for 30 Days, #30 TAB 0 Refills 08/02/20 Scheduled Amlodipine Besylate (Amlodipine Besylate), 10 MG PO DAILY Aspirin (Aspirin Ec), 81 MG PO DAILYWBKFT Atorvastatin Calcium (Atorvastatin Calcium), 20 MG PO QHS Letrozole (Femara), 1 TAB PO DAILY, (Reported) Lisinopril (Lisinopril), 10 MG PO DAILY Metformin Hcl (Metformin Hcl), 500 MG PO BIDWMEALS, (Reported) Total Time: Total Time: Total time spent was 35 minutes in preparing scripts, discharge planning with SW and RN, and preparing this discharge summary. Patient seen and examined on day of discharge. Justicifation of Admission Dx: Justifications for Admission: Justification of Admission Dx: N/A ARMIDA CHRISTIANSON MD Jan 29, 2021 07:38
== END 2021-01-25 16:17 | disposition home or self-care (01) ==
LOC: ER 09:37 → 2 SOUTH 10:00
PROVIDERS: ADMIT Family Medicine; ATTEND Family Medicine
DX: I20.9 Angina pectoris, unspecified (principal); R07.89 Other chest pain; I16.0 Hypertensive urgency; I12.9 Hypertensive chronic kidney disease with stage 1 through stage 4 chronic kidney disease, or unspecified chronic kidney disease; N18.9 Chronic kidney disease, unspecified; K21.9 Gastro-esophageal reflux disease without esophagitis; K57.90 Diverticulosis of intestine, part unspecified, without perforation or abscess without bleeding; E11.65 Type 2 diabetes mellitus with hyperglycemia; E78.5 Hyperlipidemia, unspecified; E78.00 Pure hypercholesterolemia, unspecified; M10.9 Gout, unspecified; M19.90 Unspecified osteoarthritis, unspecified site; Z79.899 Other long term (current) drug therapy; Z85.3 Personal history of malignant neoplasm of breast; Z90.710 Acquired absence of both cervix and uterus; Z96.659 Presence of unspecified artificial knee joint; Z90.49 Acquired absence of other specified parts of digestive tract; Z98.49 Cataract extraction status, unspecified eye; Z87.440 Personal history of urinary (tract) infections; Z98.890 Other specified postprocedural states; Z79.82 Long term (current) use of aspirin; Z79.84 Long term (current) use of oral hypoglycemic drugs
CPT/HCPCS: 36415; 71045; 80048; 80053; 80061; 82962; 83036; 83735; 83880; 84443; 84484; 85025; 93005; 96372; 96374; 99285; G0378; J1650; J2270; G0379

== ENCOUNTER 2021-08-25 07:03 | Observation (INO) | payer MEDICARE ==
[~2021-08-25] VITALS: Ht 157.5 cm; Wt 64.7 kg
[~2021-08-25 07:03] MED LIST changes: +ASPI-886 PO; +ATOR20TA58 PO
[2021-08-25 07:43] LABS: BASO # 0.1 x10^3/uL (0.0-0.2); BASO % 1 % (0-3); EOS # 0.1 x10^3/uL (0.0-0.7); EOS % 1 % (0-3); HEMATOCRIT 37.4 % (36.0-47.0); HEMOGLOBIN 12.4 g/dL (12.0-15.5); LYMPH # 1.6 x10^3/uL (1.0-4.8); LYMPH % 8 % (24-48); MEAN CORPUSCULAR HEMOGLOBIN 27 pg (25-35); MEAN CORPUSCULAR HGB CONC 33 g/dL (31-37); MEAN CORPUSCULAR VOLUME 82 fL (79-100); MONO # 1.2 x10^3/uL (0.0-1.1); MONO % 6 % (0-9); NEUT # 16.8 x10^3/uL (1.8-7.7); NEUT % 85 % (31-73); PLATELET COUNT 331 x10^3/uL (140-400); RED BLOOD COUNT 4.54 x10^6/uL (3.50-5.40); RED CELL DISTRIBUTION WIDTH 14.3 % (11.5-14.5); WHITE BLOOD COUNT 19.8 x10^3/uL (4.0-11.0)
[2021-08-25 07:57] LABS: CALCIUM 8.5 mg/dL (8.5-10.1); CREATININE 1.4 mg/dL (0.6-1.0); GFR 35.4
[2021-08-25 08:04] LABS: ALBUMIN 3.2 g/dL (3.4-5.0); ALBUMIN/GLOBULIN RATIO 0.8 (1.0-1.7); TOTAL BILIRUBIN 0.4 mg/dL (0.2-1.0); TOTAL PROTEIN 7.4 g/dL (6.4-8.2)
[2021-08-25] MEDS ORDERED: hydrALAZINE 20 MG/ML VIAL. IVP ONE (08:15)
[2021-08-25] MEDS ORDERED: IV NORMAL SALINE 500ML BAG 500 ML IV ONE (08:30)
[2021-08-25] MEDS ORDERED: IV NORMAL SALINE 1000ML BAG 1,000 ML IV ONE (08:30)
[2021-08-25] MEDS ORDERED: IOHEXOL 350 MG/ML 100 ML VIAL. IV ONE (08:30)
[2021-08-25] MEDS ORDERED: CONTRAST GIVEN. MC PRN (08:45)
--- NOTE | 2021-08-25 09:23 | RAD ---
Exam Date: 08/25/2021 8:25 AM CTA CHEST Indication: Reason: sob, tachycardia, + dimer / Spl. Instructions: OMNI 350 INJ. 75 MLS / History: . TECHNIQUE: CT angiogram of the chest was performed following the administration of nonionic intrave nous contrast for evaluation of pulmonary embolus. 3D MIPs were created and reviewed on an [employer] workstation to assist in diagnosis and clinical management. One or more of the following dose red uction techniques were utilized: *Automated exposure control (AEC) *Adjustment of mA and/or kV according to patient size *Use of iterative reconstruction technique *CT scan done according to ALARA, or ALARA/IMAGE GENTLY FINDINGS: There is adequate opacification of the pulmonary arteries. No central intravascular filling defects are appreciated. There is no evidence for central pulmonary embolus. The aorta is normal in caliber without evidence for dissection. Aortic calcifications are present. The heart is normal in size without pericardial effusion. Coronary artery calcifications are present . The visualized thyroid gland is within normal limits. Mild enlarged lymph nodes are nonspecific. Ca lcified mediastinal and hilar lymph nodes are noted. Calcified granulomas are seen in the lungs. Sc arring and/or atelectasis is seen in the middle lobe with multiple coarse calcifications. The central airways are patent. There is no focal consolidation, pleural effusion or pneumothorax. Images of the upper abdomen demonstrate cholecystectomy clips and calcified granulomas in the spleen. There is a moderate hiatal hernia. Degenerative changes are seen in the spine. IMPRESSION: No evidence for central pulmonary embolus. Mild enlarged mediastinal lymph nodes are nonspecific. Calcified mediastinal and hilar lymph nodes a re noted. Scarring and/or atelectasis is seen in the middle lobe with multiple coarse calcifications. Electronically signed by: Saad Rosales MD (08/25/2021 9:21 AM) [facility]
--- NOTE | 2021-08-25 09:25 | RAD ---
Exam Date: 08/25/2021 6:47 AM XR CHEST 1V Indication: Reason: sob / Spl. Instructions: / History: . Comparison: January 24, 2021 FINDINGS/ IMPRESSION: Scarring and/or atelectasis in the right base unchanged. The cardiac silhouette is borderline enlarged without congestion. There is no pleural effusion or pneumothorax. Electronically signed by: Saad Rosales MD (08/25/2021 9:22 AM) [facility]
--- NOTE | 2021-08-25 10:34 | PHYS DOC ---
Past Medical History Past Medical History: Cancer, Diabetes-Type II, Diverticulitis, High Cholesterol, Hypertension, UTI Additional Past Medical Histor: CURRENT/HX OF BREAST CA; covid May 14' Past Surgical History: Knee Replacement, Other Additional Past Surgical Histo: RIGHT HUMERUS,LEFT BREAST LUMPECTOMY Smoking Status: Never Smoker Alcohol Use: None Drug Use: None General Adult EDM: Chief Complaint: SHORTNESS OF BREATH HPI: HPI: Patient is a 89 year old female with history HTN, HLD, DM who presents with shortness of breath. Started this morning. States she was in her usual state of health yesterday. Denies cough, runny nose, rhinorrhea, sore throat. Is not vaccinated for Covid. Denies Covid contacts. Denies sputum production, fever, chills Denies chest pain, lower extremity edema, recent surgeries or immobilizations. Denies history of blood clots. She has a history of HTN and DM, but has been noncompliant with medications. Was hypertensive 204/104 for EMS. Review of Systems: Review of Systems: Constitutional: Denies fever or chills. [] Eyes: Denies change in visual acuity. [] HENT: Denies nasal congestion or sore throat. [] Respiratory: Reports shortness of breath Cardiovascular: Denies chest pain or edema. [] GI: Denies abdominal pain, nausea, vomiting, bloody stools or diarrhea. [] : Denies dysuria. [] Musculoskeletal: Denies back pain or joint pain. [] Integument: Denies rash. [] Neurologic: Denies headache, focal weakness or sensory changes. [] Endocrine: Denies polyuria or polydipsia. [] Lymphatic: Denies swollen glands. [] Psychiatric: Denies depression or anxiety. [] Heart Score: C/O Chest Pain: No Current Medications: Current Medications Medications (Trade) Dose Ordered Sig/[place] Start Time Stop Time Status Last Admin Dose Admin Hydralazine HCl (Apresoline Inj) 10 mg 1X ONCE 08/25/21 08:15 08/25/21 08:18 DC 08/25/21 08:50 10 MG Info (CONTRAST GIVEN -- Rx MONITORING) 1 each PRN DAILY PRN 08/25/21 08:45 08/27/21 08:44 Iohexol (Omnipaque 350 Mg/ml) 75 ml 1X ONCE 08/25/21 08:30 08/25/21 08:32 DC 08/25/21 08:35 75 ML Sodium Chloride 500 ml @ 500 mls/hr 1X ONCE 08/25/21 08:30 08/25/21 09:29 DC 08/25/21 08:49 500 MLS/HR Allergies: Allergies: Allergies Coded Allergies Type Severity Reaction Last Updated Verified labetalol Allergy Intermediate 05/05/17 Yes Physical Exam: PE: Constitutional: Well developed, well nourished, moderate tachypnea, increased work of breathing. HENT: Normocephalic, atraumatic Eyes: PERRLA, EOMI Neck: Normal range of motion, no tenderness, supple, no stridor. [] Cardiovascular: Tachycardic, regular heart rate regular rhythm, no murmur [] Lungs & Thorax: Moderate tachypnea, bilateral breath sounds clear to auscultation [] Abdomen: Soft, does have some diffuse tenderness with guarding, but repeatedly denies abdominal pain when not palpating. Skin: Warm, dry, no erythema, no rash. [] Back: No tenderness, no CVA tenderness. [] Extremities: No tenderness, no cyanosis, no clubbing, ROM intact, no edema. [] Neurologic: Alert and oriented X 3, normal motor function, normal sensory function, no focal deficits noted. [] Psychologic: Affect normal, judgement normal, mood normal. [] Current Patient Data: Labs: Laboratory Tests Test 08/25/21 07:32 08/25/21 07:37 SARS-CoV-2 Antigen (Rapid) Negative (NEGATIVE) White Blood Count 19.8 x10^3/uL (4.0-11.0) H Red Blood Count 4.54 x10^6/uL (3.50-5.40) Hemoglobin 12.4 g/dL (12.0-15.5) Hematocrit 37.4 % (36.0-47.0) Mean Corpuscular Volume 82 fL (79-100) Mean Corpuscular Hemoglobin 27 pg (25-35) Mean Corpuscular Hemoglobin Concent 33 g/dL (31-37) Red Cell Distribution Width 14.3 % (11.5-14.5) Platelet Count 331 x10^3/uL (140-400) Neutrophils (%) (Auto) 85 % (31-73) H Lymphocytes (%) (Auto) 8 % (24-48) L Monocytes (%) (Auto) 6 % (0-9) Eosinophils (%) (Auto) 1 % (0-3) Basophils (%) (Auto) 1 % (0-3) Neutrophils # (Auto) 16.8 x10^3/uL (1.8-7.7) H Lymphocytes # (Auto) 1.6 x10^3/uL (1.0-4.8) Monocytes # (Auto) 1.2 x10^3/uL (0.0-1.1) H Eosinophils # (Auto) 0.1 x10^3/uL (0.0-0.7) Basophils # (Auto) 0.1 x10^3/uL (0.0-0.2) Platelet Estimate Pending D-Dimer (Heather) 0.59 ug/mlFEU (0.00-0.50) H Sodium Level 138 mmol/L (136-145) Potassium Level 4.0 mmol/L (3.5-5.1) Chloride Level 102 mmol/L (98-107) Carbon Dioxide Level 24 mmol/L (21-32) Anion Gap 12 (6-14) Blood Urea Nitrogen 32 mg/dL (7-20) H Creatinine 1.4 mg/dL (0.6-1.0) H Estimated GFR (Cockcroft-Gault) 35.4 BUN/Creatinine Ratio 23 (6-20) H Glucose Level 217 mg/dL (70-99) H Calcium Level 8.5 mg/dL (8.5-10.1) Total Bilirubin 0.4 mg/dL (0.2-1.0) Aspartate Amino Transferase (AST) 11 U/L (15-37) L Alanine Aminotransferase (ALT) 14 U/L (14-59) Alkaline Phosphatase 87 U/L (46-116) Troponin I High Sensitivity 9 ng/L (4-50) NU-Mpj-S-Type Natriuretic Peptide 737 pg/mL (0-449) H Total Protein 7.4 g/dL (6.4-8.2) Albumin 3.2 g/dL (3.4-5.0) L Albumin/Globulin Ratio 0.8 (1.0-1.7) L Laboratory Tests 08/25/21 07:37 Laboratory Tests 08/25/21 07:37 Vital Signs: Vital Signs Date Time Temp Pulse Resp B/P (MAP) Pulse Ox O2 Delivery O2 Flow Rate FiO2 08/25/21 09:24 116 24 175/120 (138) 9 Room Air 08/25/21 07:03 99.4 99.4 EKG: EKG: Sinus rhythm. Normal axis. Inferior Q waves in [address] No [address] segment changes. Normal intervals. [] Radiology/Procedures: Radiology/Procedures: [] Impression: [facility] [address] [place] [address] IMAGING REPORT Signed PATIENT: NATHANIEL SCHMID ACCOUNT: [id number] : 1930 LOCATION: ER AGE: 89 SEX: F EXAM STATUS: REG ER ORD. PHYSICIAN: CEASAR JARA MD REASON: sob, tachycardia, + dimer PROCEDURE: CT ANGIOGRAPHY CHEST Exam Date: 08/25/2021 8:25 AM CTA CHEST Indication: Reason: sob, tachycardia, + dimer / Spl. Instructions: OMNI 350 INJ. 75 MLS / History: . TECHNIQUE: CT angiogram of the chest was performed following the administr ation of nonionic intravenous contrast for evaluation of pulmonary embolus. 3D MIPs were created and reviewed on an independent workstation to assist in diagnosis and clinical management. One or more of the following dose reduction techniques were utilized: *Automated exposure control (AEC) *Adjustment of mA and/or kV according to patient size *Use of iterative reconstruction technique *CT scan done according to ALARA, or ALARA/IMAGE GENTLY FINDINGS: There is adequate opacification of the pulmonary arteries. No central intravascular filling defects are appreciated. There is no evidence for central pulmonary embolus. The aorta is normal in caliber without evidence for dissection. Aortic calcifications are present. The heart is normal in size without pericardial effusion. Coronary artery calcifications are present. The visualized thyroid gland is within normal limits. Mild enlarged lymph nodes are nonspecific. Calcified mediastinal and hilar lymph nodes are noted. Calcified granulomas are seen in the lungs. Scarring and/or atelectasis is seen in the middle lobe with multiple coarse calcifications. The central airways are patent. There is no focal consolidation, pleural effusion or pneumothorax. Images of the upper abdomen demonstrate cholecystectomy clips and calcified granulomas in the spleen. There is a moderate hiatal hernia. Degenerative changes are seen in the spine. IMPRESSION: No evidence for central pulmonary embolus. Mild enlarged mediastinal lymph nodes are nonspecific. Calcified mediastinal and hilar lymph nodes are noted. Scarring and/or atelectasis is seen in the middle lobe with multiple coarse calcifications. Electronically signed by: Aditya Rosales MD (08/25/2021 9:21 AM) [facility] DICTATED and SIGNED BY: ADITYA ROSALES MD DATE: 08/25/21 [id number] 0 Course & Med Decision Making: Course & Med Decision Making Pertinent Labs and Imaging studies reviewed. (See chart for details) Patient 89-year-old female with history of DM, HTN (noncompliant with meds) who presents with acute onset shortness of breath this morning. On arrival is afebrile, heart rate in the 90s, BP ~200/100, satting well on room air. Appears to be in moderate respiratory distress. Lungs were clear to auscultation bilaterally. D-dimer was positive. CTA obtained, showed no PE, or consolidative process. Did show some atelectasis, scarring, nonspecific mediastinal lymphadenopathy. White count was nearly 20k. Pending urinalysis, for search for a source of infection. Without fever, and hold off on antibiotics. UA pending, and she was diffusely tender on abdominal exam so CT abd pelvis will be obtained. She has a labetalol allergy listed, but cannot recall the reaction, so hydralazine was given. SBP now ~180. Hypertension may be driving some of her dyspnea, although there is no evidence of pulmonary edema at this time. 1042 No acute process on abdominal CT. UA without evidence of infection. Given her leukocytosis, persistent tachycardia, and hypertension patient was admitted for observation. Dragon Disclaimer: Dragon Disclaimer: This electronic medical record was generated, in whole or in part, using a voice recognition dictation system. Departure Departure Impression: Primary Impression: Hypertension Additional Impressions: Dyspnea Leukocytosis Disposition: ADMITTED INPATIENT Admitting Physician: JANINA (Jordon) Condition: IMPROVED Referrals: ERVIN JOE MD (PCP) CEASAR JARA MD Aug 25, 2021 10:34
[2021-08-25 11:16] LABS: % BANDS 1 % (0-9); % LYMPHS 10 % (24-48); % MONOS 5 % (0-10); % SEGS 84 % (35-66)
[2021-08-25 11:17] LABS: PLT ESTIMATE ADEQUATE (ADEQUATE)
[2021-08-25 12:19] LABS: BILIRUBIN,URINE NEGATIVE (NEG); CLARITY,URINE CLEAR; COLOR,URINE YELLOW; NITRITE,URINE NEGATIVE (NEG); PROTEIN,URINE 100 mg/dL (NEG-TRACE); UROBILINOGEN,URINE 0.2 mg/dL (0.2 mg/dL)
--- NOTE | 2021-08-25 12:25 | RAD ---
EXAMINATION: CT abdomen and pelvis without IV contrast. INDICATION:89 years, Female, diffuse abdominal pain, tenderness, leukocytosis. TECHNIQUE: Axial CT images of the abdomen and pelvis were obtained. Coronal and sagittal reformatted performed. COMPARISON: CT abdomen dated 07/21/2020. Exposure: One or more of the following individualized dose reduction techniques were utilized for thi s examination: 1. Automated exposure control 2. Adjustment of the mA and/or kV according to patient size 3. Use of iterative reconstruction technique. FINDINGS: LOWER CHEST: Calcified granuloma in the left lung base. Subsegmental atelectasis in bibasilar lungs. ABDOMEN/PELVIS: Within the limitation of noncontrast exam, Calcified granulomas in the liver. Cholecystectomy. No biliary ductal dilation. Calcified granulomas in the spleen. Atrophic pancreatic parenchyma. No adrenal nodule. No hydronephrosis in either kidney. Simple left renal cyst, the largest measures 3.6 cm, unchanged since prior exam. There is a 1.6 cm h ypodense lesion in the interpolar right kidney anteriorly, indeterminate. 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 Small to moderate size hiatal hernia. No bowel obstruction or wall thickening. Sigmoid diverticulosis without acute diverticulitis. Moderate to severe aortoiliac atherosclerotic calcifications without d ilation. No lymphadenopathy in the abdomen or pelvis by size criteria. No pneumoperitoneum or ascites . IV contrast seen within the urinary bladder from recent CT angiogram exam. Unremarkable urinary adonay dder. Hysterectomy. No suspicious pelvic masses. MUSCULOSKELETAL STRUCTURES: No acute osseous process or suspicious lesion. 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 Severe multilevel degenerative changes in the spin e. IMPRESSION: 1. No acute abnormality in the abdomen or pelvis. 2. Sigmoid diverticulosis without acute diverticulitis. 3. Indeterminate 1.6 cm hypodense lesion in the right renal cortex, stable in size since prior exam. Recommend further evaluation with nonemergent renal ultrasound. 4. Other chronic/incidental findings, as described above. Electronically signed by: Hemal Zamora MD (08/25/2021 12:22 PM) [id number]
[2021-08-25 12:32] LABS: BACTERIA,URINE MOD /HPF (0-FEW); RBC,URINE 0 /HPF (0-2); WBC,URINE OCC /HPF (0-4)
--- NOTE | 2021-08-25 14:54 | PDOC1 ---
History and Physical Date of Service: DOS: DATE: 08/25/21 TIME: 14:44 Chief Complaint: Chief Complain: Shortness of breath History of Present Illness: HPI: 89-year-old female with past medical history of hypertension, dyslipidemia, diabetes mellitus who comes in with shortness of breath that started last night. She did lay down for sleep and she had some vomiting episode afterwards. She does state that she has some abdominal discomfort but does not have any diarrhea. Denies any cough, chest pain, diarrhea, or dysuria or hematuria. No recent immobilization or recent surgeries or blood clots. Denies any Covid contacts. Patient is not vaccinated for Covid. In the ED, patient was found to have elevated blood pressures two 110. Past Medical/Surgical History: PMH/PSH: Past Medical History: Cancer, Diabetes-Type II, Diverticulitis, High Cholesterol, Hypertension, UTI, CURRENT/HX OF BREAST CA; covid May 14' Past Surgical History: Knee Replacement, RIGHT HUMERUS,LEFT BREAST LUMPECTOMY Allergies: Allergies: Coded Allergies: labetalol (Verified Allergy, Intermediate, 05/05/17) Patient can't remember the name of the medication but able to find it on previous record in [facility] 05/2013. Family History: Family History: Cervical cancer and kidney disease in the family Social History: Social History: Smoking Status: Never Smoker Alcohol Use: None Drug Use: None Current Medications: Current Medications Current Medications Hydralazine HCl (Apresoline Inj) 10 mg 1X ONCE IVP Last administered on 08/25/21at 08:50; Start 08/25/21 at 08:15; Stop 08/25/21 at 08:18; Status DC Sodium Chloride 1,000 ml @ 100 mls/hr 1X ONCE IV Last administered on 08/25/21at 09:51; Start 08/25/21 at 08:30; Stop 08/25/21 at 18:29 Sodium Chloride 500 ml @ 500 mls/hr 1X ONCE IV Last administered on 08/25/21at 08:49; Start 08/25/21 at 08:30; Stop 08/25/21 at 09:29; Status DC Iohexol (Omnipaque 350 Mg/ml) 75 ml 1X ONCE IV Last administered on 08/25/21at 08:35; Start 08/25/21 at 08:30; Stop 08/25/21 at 08:32; Status DC Info (CONTRAST GIVEN -- Rx MONITORING) 1 each PRN DAILY PRN MC SEE COMMENTS; Start 08/25/21 at 08:45; Stop 08/27/21 at 08:44 Active Scripts Active Aspirin Ec (Aspirin) 81 Mg Tablet.dr 81 Mg PO DAILYWBKFT 30 Days Lisinopril 10 Mg Tablet 10 Mg PO DAILY 30 Days Amlodipine Besylate 10 Mg Tablet 10 Mg PO DAILY 30 Days Atorvastatin Calcium 20 Mg Tablet 20 Mg PO QHS 30 Days Reported Metformin Hcl 500 Mg Tablet 500 Mg PO BIDWMEALS Femara (Letrozole) 2.5 Mg Tablet 1 Tab PO DAILY 30 Days ROS: Review of Systems Review of System REVIEW OF SYSTEMS: GENERAL: Denies weakness SKIN: No bruising, hair changes or rashes. EYES: No blurred, double or loss of vision. NOSE AND THROAT: No history of nosebleeds, hoarseness or sore throat. HEART: No history of palpitations, chest pain or shortness of breath on exertion. LUNGS: Positive for shortness of breath GASTROINTESTINAL: Denies changes in appetite, nausea, vomiting, diarrhea or constipation. GENITOURINARY: No history of frequency, urgency, hesitancy or nocturia. NEUROLOGIC: Denies history of numbness, tingling, or tremor. PSYCHIATRIC: No history of panic, anxiety or depression. ENDOCRINE: No history of heat or cold intolerance, polyuria or polydipsia. EXTREMITIES: Denies joint pain, pain on walking or stiffness. Physical Exam: Vital Signs: Vital Signs Date Time Temp Pulse Resp B/P (MAP) Pulse Ox O2 Delivery O2 Flow Rate FiO2 08/25/21 14:22 90 22 156/66 (96) 94 Room Air 08/25/21 07:03 99.4 99.4 Physcial Exam: General: Well developed, well nourished, no acute distress, well appearing HEENT: Pupils equally round and reactive to light, EOMI, no discharge, normal conjunctiva Neck: Supple, no nuchal rigidity, no JVD, trachea midline, no tenderness Cardiac: RRR, no murmurs, no gallops, no rubs Chest/Lungs: CTAB, no wheeze, no rhonchi, no crackles. Moderate tachypnea Abdomen: soft, non-distended, no guarding, no peritoneal signs, diffuse tenderness with some guarding Back: No tenderness Extremities: no edema, pulses intact, non-tender,capillary refill <3 sec bilateral upper and lower extremities, Neuro: Alert and oriented x 4, no focal deficits, normal speech Labs: Labs: Laboratory Tests Test 08/25/21 07:32 08/25/21 07:37 08/25/21 11:08 08/25/21 12:02 SARS-CoV-2 Antigen (Rapid) Negative (NEGATIVE) White Blood Count 19.8 x10^3/uL (4.0-11.0) Red Blood Count 4.54 x10^6/uL (3.50-5.40) Hemoglobin 12.4 g/dL (12.0-15.5) Hematocrit 37.4 % (36.0-47.0) Mean Corpuscular Volume 82 fL (79-100) Mean Corpuscular Hemoglobin 27 pg (25-35) Mean Corpuscular Hemoglobin Concent 33 g/dL (31-37) Red Cell Distribution Width 14.3 % (11.5-14.5) Platelet Count 331 x10^3/uL (140-400) Neutrophils (%) (Auto) 85 % (31-73) Lymphocytes (%) (Auto) 8 % (24-48) Monocytes (%) (Auto) 6 % (0-9) Eosinophils (%) (Auto) 1 % (0-3) Basophils (%) (Auto) 1 % (0-3) Neutrophils # (Auto) 16.8 x10^3/uL (1.8-7.7) Lymphocytes # (Auto) 1.6 x10^3/uL (1.0-4.8) Monocytes # (Auto) 1.2 x10^3/uL (0.0-1.1) Eosinophils # (Auto) 0.1 x10^3/uL (0.0-0.7) Basophils # (Auto) 0.1 x10^3/uL (0.0-0.2) Segmented Neutrophils % 84 % (35-66) Band Neutrophils % 1 % (0-9) Lymphocytes % 10 % (24-48) Monocytes % 5 % (0-10) Platelet Estimate Adequate (ADEQUATE) D-Dimer (Heather) 0.59 ug/mlFEU (0.00-0.50) Sodium Level 138 mmol/L (136-145) Potassium Level 4.0 mmol/L (3.5-5.1) Chloride Level 102 mmol/L (98-107) Carbon Dioxide Level 24 mmol/L (21-32) Anion Gap 12 (6-14) Blood Urea Nitrogen 32 mg/dL (7-20) Creatinine 1.4 mg/dL (0.6-1.0) Estimated GFR (Cockcroft-Gault) 35.4 BUN/Creatinine Ratio 23 (6-20) Glucose Level 217 mg/dL (70-99) Calcium Level 8.5 mg/dL (8.5-10.1) Total Bilirubin 0.4 mg/dL (0.2-1.0) Aspartate Amino Transf (AST/SGOT) 11 U/L (15-37) Alanine Aminotransferase (ALT/SGPT) 14 U/L (14-59) Alkaline Phosphatase 87 U/L (46-116) Troponin I High Sensitivity 9 ng/L (4-50) 13 ng/L (4-50) JE-Owz-C-Type Natriuretic Peptide 737 pg/mL (0-449) Total Protein 7.4 g/dL (6.4-8.2) Albumin 3.2 g/dL (3.4-5.0) Albumin/Globulin Ratio 0.8 (1.0-1.7) Urine Collection Type Unknown Urine Color Yellow Urine Clarity Clear Urine pH 6.0 (<5.0-8.0) Urine Specific [place] >=1.030 (1.000-1.030) Urine Protein 100 mg/dL (NEG-TRACE) Urine Glucose (UA) 500 mg/dL (NEG) Urine Ketones (Stick) Negative mg/dL (NEG) Urine Blood Negative (NEG) Urine Nitrite Negative (NEG) Urine Bilirubin Negative (NEG) Urine Urobilinogen Dipstick 0.2 mg/dL (0.2 mg/dL) Urine Leukocyte Esterase Negative (NEG) Urine RBC 0 /HPF (0-2) Urine WBC Occ /HPF (0-4) Urine Squamous Epithelial Cells Mod /LPF Urine Bacteria Mod /HPF (0-FEW) Urine Mucus Slight /LPF Test 08/25/21 12:56 Lactic Acid Level 1.2 mmol/L (0.4-2.0) Laboratory Tests Test 08/25/21 07:32 08/25/21 07:37 08/25/21 11:08 08/25/21 12:02 SARS-CoV-2 Antigen (Rapid) Negative (NEGATIVE) White Blood Count 19.8 x10^3/uL (4.0-11.0) Red Blood Count 4.54 x10^6/uL (3.50-5.40) Hemoglobin 12.4 g/dL (12.0-15.5) Hematocrit 37.4 % (36.0-47.0) Mean Corpuscular Volume 82 fL (79-100) Mean Corpuscular Hemoglobin 27 pg (25-35) Mean Corpuscular Hemoglobin Concent 33 g/dL (31-37) Red Cell Distribution Width 14.3 % (11.5-14.5) Platelet Count 331 x10^3/uL (140-400) Neutrophils (%) (Auto) 85 % (31-73) Lymphocytes (%) (Auto) 8 % (24-48) Monocytes (%) (Auto) 6 % (0-9) Eosinophils (%) (Auto) 1 % (0-3) Basophils (%) (Auto) 1 % (0-3) Neutrophils # (Auto) 16.8 x10^3/uL (1.8-7.7) Lymphocytes # (Auto) 1.6 x10^3/uL (1.0-4.8) Monocytes # (Auto) 1.2 x10^3/uL (0.0-1.1) Eosinophils # (Auto) 0.1 x10^3/uL (0.0-0.7) Basophils # (Auto) 0.1 x10^3/uL (0.0-0.2) Segmented Neutrophils % 84 % (35-66) Band Neutrophils % 1 % (0-9) Lymphocytes % 10 % (24-48) Monocytes % 5 % (0-10) Platelet Estimate Adequate (ADEQUATE) D-Dimer (Heather) 0.59 ug/mlFEU (0.00-0.50) Sodium Level 138 mmol/L (136-145) Potassium Level 4.0 mmol/L (3.5-5.1) Chloride Level 102 mmol/L (98-107) Carbon Dioxide Level 24 mmol/L (21-32) Anion Gap 12 (6-14) Blood Urea Nitrogen 32 mg/dL (7-20) Creatinine 1.4 mg/dL (0.6-1.0) Estimated GFR (Cockcroft-Gault) 35.4 BUN/Creatinine Ratio 23 (6-20) Glucose Level 217 mg/dL (70-99) Calcium Level 8.5 mg/dL (8.5-10.1) Total Bilirubin 0.4 mg/dL (0.2-1.0) Aspartate Amino Transf (AST/SGOT) 11 U/L (15-37) Alanine Aminotransferase (ALT/SGPT) 14 U/L (14-59) Alkaline Phosphatase 87 U/L (46-116) Troponin I High Sensitivity 9 ng/L (4-50) 13 ng/L (4-50) DH-Sqv-F-Type Natriuretic Peptide 737 pg/mL (0-449) Total Protein 7.4 g/dL (6.4-8.2) Albumin 3.2 g/dL (3.4-5.0) Albumin/Globulin Ratio 0.8 (1.0-1.7) Urine Collection Type Unknown Urine Color Yellow Urine Clarity Clear Urine pH 6.0 (<5.0-8.0) Urine Specific [place] >=1.030 (1.000-1.030) Urine Protein 100 mg/dL (NEG-TRACE) Urine Glucose (UA) 500 mg/dL (NEG) Urine Ketones (Stick) Negative mg/dL (NEG) Urine Blood Negative (NEG) Urine Nitrite Negative (NEG) Urine Bilirubin Negative (NEG) Urine Urobilinogen Dipstick 0.2 mg/dL (0.2 mg/dL) Urine Leukocyte Esterase Negative (NEG) Urine RBC 0 /HPF (0-2) Urine WBC Occ /HPF (0-4) Urine Squamous Epithelial Cells Mod /LPF Urine Bacteria Mod /HPF (0-FEW) Urine Mucus Slight /LPF Test 08/25/21 12:56 Lactic Acid Level 1.2 mmol/L (0.4-2.0) Images: Images PROCEDURE: CT ANGIOGRAPHY CHEST Exam Date: 08/25/2021 8:25 AM CTA CHEST Indication: Reason: sob, tachycardia, + dimer / Spl. Instructions: OMNI 350 INJ. 75 MLS / History: . TECHNIQUE: CT angiogram of the chest was performed following the administration of nonionic intravenous contrast for evaluation of pulmonary embolus. 3D MIPs were created and reviewed on an independent workstation to assist in diagnosis and clinical management. One or more of the following dose reduction techniques were utilized: *Automated exposure control (AEC) *Adjustment of mA and/or kV according to patient size *Use of iterative reconstruction technique *CT scan done according to ALARA, or ALARA/IMAGE GENTLY FINDINGS: There is adequate opacification of the pulmonary arteries. No central intravascular filling defects are appreciated. There is no evidence for central pulmonary embolus. The aorta is normal in caliber without evidence for dissection. Aortic calcifications are present. The heart is normal in size without pericardial effusion. Coronary artery calcifications are present. The visualized thyroid gland is within normal limits. Mild enlarged lymph nodes are nonspecific. Calcified mediastinal and hilar lymph nodes are noted. Calcified granulomas are seen in the lungs. Scarring and/or atelectasis is seen in the middle lobe with multiple coarse calcifications. The central airways are patent. There is no focal consolidation, pleural effusion or pneumothorax. Images of the upper abdomen demonstrate cholecystectomy clips and calcified granulomas in the spleen. There is a moderate hiatal hernia. Degenerative changes are seen in the spine. IMPRESSION: No evidence for central pulmonary embolus. Mild enlarged mediastinal lymph nodes are nonspecific. Calcified mediastinal and hilar lymph nodes are noted. Scarring and/or atelectasis is seen in the middle lobe with multiple coarse calcifications. PROCEDURE: CT ABDOMEN PELVIS WO CONTRAST EXAMINATION: CT abdomen and pelvis without IV contrast. INDICATION:89 years, Female, diffuse abdominal pain, tenderness, leukocytosis. TECHNIQUE: Axial CT images of the abdomen and pelvis were obtained. Coronal and sagittal reformatted performed. COMPARISON: CT abdomen dated 07/21/2020. Exposure: One or more of the following individualized dose reduction techniques were utilized for this examination: 1. Automated exposure control 2. Adjustment of the mA and/or kV according to patient size 3. Use of iterative reconstruction technique. FINDINGS: LOWER CHEST: Calcified granuloma in the left lung base. Subsegmental atelectasis in bibasilar lungs. ABDOMEN/PELVIS: Within the limitation of noncontrast exam, Calcified granulomas in the liver. Cholecystectomy. No biliary ductal dilation. Calcified granulomas in the spleen. Atrophic pancreatic parenchyma. No adrenal nodule. No hydronephrosis in either kidney. Simple left renal cyst, the largest measures 3.6 cm, unchanged since prior exam. There is a 1.6 cm hypodense lesion in the interpolar right kidney anteriorly, indeterminate. 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 Small to moderate size hiatal hernia. No bowel obstruction or wall thickening. Sigmoid diverticulosis without acute diverticulitis. Moderate to severe aortoiliac atherosclerotic calcifications without dilation. No lymphadenopathy in the abdomen or pelvis by size criteria. No pneumoperitoneum or ascites. IV contrast seen within the urinary bladder from recent CT angiogram exam. Unremarkable urinary bladder. Hysterectomy. No suspicious pelvic masses. MUSCULOSKELETAL STRUCTURES: No acute osseous process or suspicious lesion. 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 Severe multilevel degenerative changes in the spine. IMPRESSION: 1. No acute abnormality in the abdomen or pelvis. 2. Sigmoid diverticulosis without acute diverticulitis. 3. Indeterminate 1.6 cm hypodense lesion in the right renal cortex, stable in size since prior exam. Recommend further evaluation with nonemergent renal ultrasound. 4. Other chronic/incidental findings, as described above. Assessment/Plan Assessment/Plan Hypertensive urgency Chronic kidney disease stage III Medical nonadherence History of hypertension History of diabetes mellitus type 2 History of dyslipidemia Mild cognitive impairment Admit to hospitalist service for further management IV antihypertensive regimen to maintain systolic inpatient blood pressure goals between [id number] Resume home oral antihypertensive regimen Strict I/O Monitor urine output Heparin for DVT prophylaxis ADA diet CODE STATUS full Discussed with RN and SW Disposition inpatient management as above DPOA: Daughter Justifications for Admission Other Justification ANGINA, HTN ARMIDA CHRISTIANSON MD Aug 25, 2021 14:54
[2021-08-25] MEDS ORDERED: diphenhydrAMINE HCL 25 MG CAPSULE PO PRN ×2 (15:00)
[2021-08-25] MEDS ORDERED: ZOLPIDEM 5 MG TABLET. PO PRN (15:00)
[2021-08-25] MEDS ORDERED: ONDANSETRON PF 4 MG/2 ML VIAL. IVP PRN (15:00)
[2021-08-25] MEDS ORDERED: diphenhydrAMINE 50 MG/ML VIAL IVP PRN (15:00)
[2021-08-25] MEDS ORDERED: LABETALOL 20 MG/4 ML DISP.SYRIN. IVP PRN (15:00)
[2021-08-25] MEDS ORDERED: ACETAMINOPHEN 325 MG TABLET. PO PRN (15:00)
[2021-08-25] MEDS ORDERED: DEXTROSE 50% 25 GM / 50ML DISP.SYRIN. IV PRN (15:00)
[2021-08-25] MEDS ORDERED: PROCHLORPERAZINE 10 MG/2 ML VIAL. IV PRN (15:00)
[2021-08-25] MEDS ORDERED: hydrALAZINE 20 MG/ML VIAL. IVP PRN (15:00)
[2021-08-25] MEDS ORDERED: LORazepam 0.5 MG TABLET PO PRN (15:00)
[2021-08-25] MEDS ORDERED: DOCUSATE SODIUM 100 MG CAPSULE. PO PRN (15:00)
[2021-08-25] MEDS ORDERED: SENNOSIDES 8.6 MG TABLET PO PRN (15:00)
[2021-08-25] MEDS: INSULIN LISPRO 300 UNITS/3 ML VIAL. SQ SCH (18:30)
[2021-08-25 19:15] VITALS: BP 159/73
--- NOTE | 2021-08-25 19:54 | EKG ---
[facility] [address] [place] [address] Test Date: 2021-08-25 Test Time: 07:19:20 Pat Name: NATHANIEL SCHMID Department: Room: 576 1 Gender: F Speech Lang Path: : 1930 Requested By: CEASAR JARA Order Number: [id number] Reading MD: James Ramos Measurements Intervals Raymond Rate: 98 P: 215 WV: 122 QRS: 10 QRSD: 104 T: 9 QT: 352 QTc: 451 Interpretive Statements SINUS RHYTHM LEFT ATRIAL ABNORMALITY QRS(T) CONTOUR ABNORMALITY CONSIDER INFERIOR INFARCT ABNORMAL ECG Electronically Signed On 08-26-2021 10:14:30 [employer] by James Ramos
[2021-08-25] MEDS ORDERED: ATORVASTATIN CALCIUM 20 MG TABLET PO SCH (21:00)
[2021-08-25] MEDS ORDERED: LISINOPRIL 20 MG TABLET PO SCH (21:00)
[2021-08-25] MEDS: HEPARIN for SUB-Q USE 5,000 UNIT/ML VIAL. SQ SCH (21:23)
[2021-08-25 23:00] VITALS: BP 161/78
[2021-08-26 03:00] VITALS: BP 160/69
[2021-08-26 07:00] VITALS: BP 153/74
[2021-08-26 07:55] LABS: BASO # 0.1 x10^3/uL (0.0-0.2); BASO % 1 % (0-3); EOS % 0 % (0-3); HEMATOCRIT 33.5 % (36.0-47.0); HEMOGLOBIN 11.2 g/dL (12.0-15.5); LYMPH # 2.2 x10^3/uL (1.0-4.8); LYMPH % 14 % (24-48); MEAN CORPUSCULAR HEMOGLOBIN 27 pg (25-35); MEAN CORPUSCULAR HGB CONC 33 g/dL (31-37); MEAN CORPUSCULAR VOLUME 82 fL (79-100); MONO # 1.2 x10^3/uL (0.0-1.1); MONO % 8 % (0-9); NEUT # 11.7 x10^3/uL (1.8-7.7); NEUT % 77 % (31-73); PLATELET COUNT 274 x10^3/uL (140-400); WHITE BLOOD COUNT 15.2 x10^3/uL (4.0-11.0)
[2021-08-26] MEDS: INSULIN LISPRO 300 UNITS/3 ML VIAL. SQ SCH ×2 (08:00→13:11)
[2021-08-26] MEDS ORDERED: ASPIRIN ENTERIC COATED 81 MG TABLET.DR. PO SCH (08:00)
[2021-08-26 08:06] LABS: CALCIUM 7.8 mg/dL (8.5-10.1); CREATININE 1.2 mg/dL (0.6-1.0); GFR 42.3; MAGNESIUM 1.7 mg/dL (1.8-2.4); PHOSPHORUS 3.2 mg/dL (2.6-4.7); POTASSIUM 3.3 mmol/L (3.5-5.1)
[2021-08-26] MEDS: HEPARIN for SUB-Q USE 5,000 UNIT/ML VIAL. SQ SCH (09:37)
[2021-08-26 11:00] VITALS: BP 126/66
[2021-08-26] MEDS ORDERED: MAGNESIUM SULFATE 2GM 50 ML IV ONE (13:00)
[2021-08-26] MEDS ORDERED: POTASSIUM CHLORIDE 20 MEQ TABLET.ER. PO ONE (13:00)
[2021-08-26] MEDS ORDERED: AMLO-186 PO (14:11)
--- NOTE | 2021-08-26 14:13 | PDOC3 ---
Discharge Summary Visit Information Date of Admission: Aug 25, 2021 Date of Discharge: Aug 26, 2021 Final Diagnosis Hypertensive urgency Chronic kidney disease stage III Medical nonadherence History of hypertension History of diabetes mellitus type 2 History of dyslipidemia cognitive decline Problems Medical Problems: (1) Dyspnea Status: Acute (2) Hypertension Status: Acute (3) Leukocytosis Status: Acute Brief Hospital Course Allergies Allergies Coded Allergies Type Severity Reaction Last Updated Verified labetalol Allergy Intermediate 05/05/17 Yes Vital Signs Vital Signs Date Time Temp Pulse Resp B/P (MAP) Pulse Ox O2 Delivery O2 Flow Rate FiO2 08/26/21 11:00 97.7 76 18 126/66 (86) 95 Room Air 97.7 Lab Results Laboratory Tests Test 08/25/21 07:32 08/25/21 07:37 08/25/21 11:08 08/25/21 12:02 SARS-CoV-2 RNA (GWYN) Negative (Negative) SARS-CoV-2 Antigen (Rapid) Negative (NEGATIVE) White Blood Count 19.8 x10^3/uL (4.0-11.0) Red Blood Count 4.54 x10^6/uL (3.50-5.40) Hemoglobin 12.4 g/dL (12.0-15.5) Hematocrit 37.4 % (36.0-47.0) Mean Corpuscular Volume 82 fL (79-100) Mean Corpuscular Hemoglobin 27 pg (25-35) Mean Corpuscular Hemoglobin Concent 33 g/dL (31-37) Red Cell Distribution Width 14.3 % (11.5-14.5) Platelet Count 331 x10^3/uL (140-400) Neutrophils (%) (Auto) 85 % (31-73) Lymphocytes (%) (Auto) 8 % (24-48) Monocytes (%) (Auto) 6 % (0-9) Eosinophils (%) (Auto) 1 % (0-3) Basophils (%) (Auto) 1 % (0-3) Neutrophils # (Auto) 16.8 x10^3/uL (1.8-7.7) Lymphocytes # (Auto) 1.6 x10^3/uL (1.0-4.8) Monocytes # (Auto) 1.2 x10^3/uL (0.0-1.1) Eosinophils # (Auto) 0.1 x10^3/uL (0.0-0.7) Basophils # (Auto) 0.1 x10^3/uL (0.0-0.2) Segmented Neutrophils % 84 % (35-66) Band Neutrophils % 1 % (0-9) Lymphocytes % 10 % (24-48) Monocytes % 5 % (0-10) Platelet Estimate Adequate (ADEQUATE) D-Dimer (Heather) 0.59 ug/mlFEU (0.00-0.50) Sodium Level 138 mmol/L (136-145) Potassium Level 4.0 mmol/L (3.5-5.1) Chloride Level 102 mmol/L (98-107) Carbon Dioxide Level 24 mmol/L (21-32) Anion Gap 12 (6-14) Blood Urea Nitrogen 32 mg/dL (7-20) Creatinine 1.4 mg/dL (0.6-1.0) Estimated GFR (Cockcroft-Gault) 35.4 BUN/Creatinine Ratio 23 (6-20) Glucose Level 217 mg/dL (70-99) Calcium Level 8.5 mg/dL (8.5-10.1) Total Bilirubin 0.4 mg/dL (0.2-1.0) Aspartate Amino Transf (AST/SGOT) 11 U/L (15-37) Alanine Aminotransferase (ALT/SGPT) 14 U/L (14-59) Alkaline Phosphatase 87 U/L (46-116) Troponin I High Sensitivity 9 ng/L (4-50) 13 ng/L (4-50) ZI-Qqm-F-Type Natriuretic Peptide 737 pg/mL (0-449) Total Protein 7.4 g/dL (6.4-8.2) Albumin 3.2 g/dL (3.4-5.0) Albumin/Globulin Ratio 0.8 (1.0-1.7) Thyroid Stimulating Hormone (TSH) 1.456 uIU/mL (0.358-3.74) Urine Collection Type Unknown Urine Color Yellow Urine Clarity Clear Urine pH 6.0 (<5.0-8.0) Urine Specific [place] >=1.030 (1.000-1.030) Urine Protein 100 mg/dL (NEG-TRACE) Urine Glucose (UA) 500 mg/dL (NEG) Urine Ketones (Stick) Negative mg/dL (NEG) Urine Blood Negative (NEG) Urine Nitrite Negative (NEG) Urine Bilirubin Negative (NEG) Urine Urobilinogen Dipstick 0.2 mg/dL (0.2 mg/dL) Urine Leukocyte Esterase Negative (NEG) Urine RBC 0 /HPF (0-2) Urine WBC Occ /HPF (0-4) Urine Squamous Epithelial Cells Mod /LPF Urine Bacteria Mod /HPF (0-FEW) Urine Mucus Slight /LPF Test 08/25/21 12:56 08/25/21 17:25 08/25/21 21:34 08/26/21 06:45 Lactic Acid Level 1.2 mmol/L (0.4-2.0) Glucose (Fingerstick) 209 mg/dL (70-99) 120 mg/dL (70-99) White Blood Count 15.2 x10^3/uL (4.0-11.0) Red Blood Count 4.10 x10^6/uL (3.50-5.40) Hemoglobin 11.2 g/dL (12.0-15.5) Hematocrit 33.5 % (36.0-47.0) Mean Corpuscular Volume 82 fL (79-100) Mean Corpuscular Hemoglobin 27 pg (25-35) Mean Corpuscular Hemoglobin Concent 33 g/dL (31-37) Red Cell Distribution Width 14.0 % (11.5-14.5) Platelet Count 274 x10^3/uL (140-400) Neutrophils (%) (Auto) 77 % (31-73) Lymphocytes (%) (Auto) 14 % (24-48) Monocytes (%) (Auto) 8 % (0-9) Eosinophils (%) (Auto) 0 % (0-3) Basophils (%) (Auto) 1 % (0-3) Neutrophils # (Auto) 11.7 x10^3/uL (1.8-7.7) Lymphocytes # (Auto) 2.2 x10^3/uL (1.0-4.8) Monocytes # (Auto) 1.2 x10^3/uL (0.0-1.1) Eosinophils # (Auto) 0.0 x10^3/uL (0.0-0.7) Basophils # (Auto) 0.1 x10^3/uL (0.0-0.2) Sodium Level 139 mmol/L (136-145) Potassium Level 3.3 mmol/L (3.5-5.1) Chloride Level 102 mmol/L (98-107) Carbon Dioxide Level 22 mmol/L (21-32) Anion Gap 15 (6-14) Blood Urea Nitrogen 20 mg/dL (7-20) Creatinine 1.2 mg/dL (0.6-1.0) Estimated GFR (Cockcroft-Gault) 42.3 Glucose Level 146 mg/dL (70-99) Calcium Level 7.8 mg/dL (8.5-10.1) Phosphorus Level 3.2 mg/dL (2.6-4.7) Magnesium Level 1.7 mg/dL (1.8-2.4) Test 08/26/21 11:48 Glucose (Fingerstick) 164 mg/dL (70-99) Laboratory Tests Test 08/25/21 17:25 08/25/21 21:34 08/26/21 06:45 08/26/21 11:48 Glucose (Fingerstick) 209 mg/dL (70-99) 120 mg/dL (70-99) 164 mg/dL (70-99) White Blood Count 15.2 x10^3/uL (4.0-11.0) Red Blood Count 4.10 x10^6/uL (3.50-5.40) Hemoglobin 11.2 g/dL (12.0-15.5) Hematocrit 33.5 % (36.0-47.0) Mean Corpuscular Volume 82 fL (79-100) Mean Corpuscular Hemoglobin 27 pg (25-35) Mean Corpuscular Hemoglobin Concent 33 g/dL (31-37) Red Cell Distribution Width 14.0 % (11.5-14.5) Platelet Count 274 x10^3/uL (140-400) Neutrophils (%) (Auto) 77 % (31-73) Lymphocytes (%) (Auto) 14 % (24-48) Monocytes (%) (Auto) 8 % (0-9) Eosinophils (%) (Auto) 0 % (0-3) Basophils (%) (Auto) 1 % (0-3) Neutrophils # (Auto) 11.7 x10^3/uL (1.8-7.7) Lymphocytes # (Auto) 2.2 x10^3/uL (1.0-4.8) Monocytes # (Auto) 1.2 x10^3/uL (0.0-1.1) Eosinophils # (Auto) 0.0 x10^3/uL (0.0-0.7) Basophils # (Auto) 0.1 x10^3/uL (0.0-0.2) Sodium Level 139 mmol/L (136-145) Potassium Level 3.3 mmol/L (3.5-5.1) Chloride Level 102 mmol/L (98-107) Carbon Dioxide Level 22 mmol/L (21-32) Anion Gap 15 (6-14) Blood Urea Nitrogen 20 mg/dL (7-20) Creatinine 1.2 mg/dL (0.6-1.0) Estimated GFR (Cockcroft-Gault) 42.3 Glucose Level 146 mg/dL (70-99) Calcium Level 7.8 mg/dL (8.5-10.1) Phosphorus Level 3.2 mg/dL (2.6-4.7) Magnesium Level 1.7 mg/dL (1.8-2.4) Brief Hospital Course Ms. Miranda is a 89 old admit for shortness of breath and acute accel htn BP 230 on admit on meds close to home meds, BP down to 120 range. I am almost certain she is not taking her meds at home back off Htn meds, \she asked to DC home Discharge Information Condition at Discharge: Improved Follow Up: Weeks Disposition/Orders: D/C to Home Scheduled Amlodipine Besylate (Amlodipine Besylate) 5 Mg Tablet, 5 MG PO QHS for htn, #30 Ref 1 Prescribed by: TYLER WILLAMS on 08/26/21 1411 Aspirin (Aspirin Ec) 81 Mg Tablet.dr, 81 MG PO DAILYWBKFT for coronary artery disease for 30 Days, #30 Prescribed by: ARMIDA CHRISTIANSON MD on 01/25/21851 Last Action: Continued on 08/25/211451 by ARMIDA CHRISTIANSON MD Atorvastatin Calcium (Atorvastatin Calcium) 20 Mg Tablet, 20 MG PO QHS for cholesterol for 30 Days, #30 Prescribed by: ARMIDA CHRISTIANSON MD on 01/25/21851 Last Action: Continued on 08/25/211451 by ARMIDA CHRISTIANSON MD Letrozole (Femara) 2.5 Mg Tablet, 1 TAB PO DAILY for for 30 Days, #30 Ref 0 (Reported) Entered as Reported by: Sloane Brewster on 08/02/20 2217 Lisinopril (Lisinopril) 10 Mg Tablet, 10 MG PO DAILY for blood pressure for 30 Days, #30 Prescribed by: ARMIDA CHRISTIANSON MD on 01/25/21 0852 Metformin Hcl (Metformin Hcl) 500 Mg Tablet, 500 MG PO BIDWMEALS for ANTI- DIABETIC, Ref 0 (Reported) Entered as Reported by: EARNEST MANDUJANO on 01/25/21 1345 Patient Instructions Patient Instructions 34 min face to face was completed Justicifation of Admission Dx: Justifications for Admission: Justification of Admission Dx: N/A TYLER WILLASM MD Aug 26, 2021 14:13
[2021-08-26 15:00] VITALS: BP 140/59
--- NOTE | 2021-08-26 17:00 | NUR ---
Patient discharged to home with self care, discharge education given by this RN. IV and telemonitor discontinued by this RN. Escorted out by wheelchair with all belongings with daughter to private vehicle.
== END 2021-08-26 17:00 | disposition home or self-care (01) ==
LOC: ER 07:03 → ED HOLD 12:48 → 5 SOUTH 13:49
PROVIDERS: ADMIT Internal Medicine; ATTEND Internal Medicine
DX: I16.0 Hypertensive urgency (principal); Z20.822 Contact with and (suspected) exposure to COVID-19; I12.9 Hypertensive chronic kidney disease with stage 1 through stage 4 chronic kidney disease, or unspecified chronic kidney disease; N18.30 Chronic kidney disease, stage 3 unspecified; E11.22 Type 2 diabetes mellitus with diabetic chronic kidney disease; I20.9 Angina pectoris, unspecified; E78.5 Hyperlipidemia, unspecified; E78.00 Pure hypercholesterolemia, unspecified; D72.829 Elevated white blood cell count, unspecified; G31.84 Mild cognitive impairment of uncertain or unknown etiology; J84.10 Pulmonary fibrosis, unspecified; J98.11 Atelectasis; K44.9 Diaphragmatic hernia without obstruction or gangrene; K57.30 Diverticulosis of large intestine without perforation or abscess without bleeding; M43.16 Spondylolisthesis, lumbar region; N28.1 Cyst of kidney, acquired; R06.00 Dyspnea, unspecified; Z85.3 Personal history of malignant neoplasm of breast; Z86.711 Personal history of pulmonary embolism; Z90.710 Acquired absence of both cervix and uterus; Z91.14 Patient's other noncompliance with medication regimen; Z91.19 Patient's noncompliance with other medical treatment and regimen; Z96.659 Presence of unspecified artificial knee joint
CPT/HCPCS: 36415; 71045; 71275; 74176; 80048; 80053; 81001; 82607; 82962; 83605; 83735; 83880; 84100; 84443; 84484; 85007; 85025; 85379; 87040; 87426; 93005; 96361; 96365; 96366; 96372; 96375; 99285; G0378; J0360; J1644; J1815; J3475; J7030; J7040; Q9967; U0003; U0005; G0379

== ENCOUNTER 2021-11-27 11:48 | Emergency (ER) | payer MEDICARE ==
[~2021-11-27] VITALS: Ht 157.5 cm; Wt 64.4 kg
[~2021-11-27 11:48] MED LIST changes: +AMLO-186 PO
[2021-11-27 11:59] VITALS: BP 179/78
[2021-11-27] MEDS ORDERED: ACETAMINOPHEN 325 MG TABLET. PO ONE (12:45)
--- NOTE | 2021-11-27 13:20 | RAD ---
Exam Date: 11/27/2021 12:49 PM US DPLX VENOUS EXTREMITY LOWER LT Indication: Reason: calf pain / Spl. Instructions: / History: . INDICATION: Lower extremity pain/swelling TECHNIQUE: Grayscale sonogram, color Doppler, and spectral Doppler waveform analysis of the lower ex tremity venous system was performed on the left. FINDINGS: The left common femoral, superficial femoral, central greater saphenous, popliteal, posterior tibial and peroneal veins are compressible and demonstrate normal color Doppler flow and normal spontaneous phasic waveforms or normal response to augmentation. IMPRESSION: No evidence of deep venous thrombosis in the left lower extremity. Electronically signed by: Saad Rosales MD (11/27/2021 1:18 PM) [facility]
--- NOTE | 2021-11-27 13:58 | PHYS DOC ---
Past Medical History Past Medical History: Cancer, Diabetes-Type II, Diverticulitis, High Chol esterol, Hypertension, UTI Additional Past Medical Histor: CURRENT/HX OF BREAST CA; covid May 14' Past Surgical History: No Surgical History Additional Past Surgical Histo: RIGHT HUMERUS,LEFT BREAST LUMPECTOMY Smoking Status: Never Smoker Alcohol Use: None Drug Use: None General Adult EDM: Chief Complaint: LOWER EXT PAIN HPI: HPI: Patient is a 89 year old female who presents with left lower leg pain that began yesterday. Patient states her pain was more intense yesterday, but today is very mild. She states that she often walks around the house and has not been bedridden or sedentary recently. Patient was seen at urgent care today, who directed her to present to emergency department to rule out DVT. She had COVID- 19 in 2019 and has had some persistent shortness of breath since that time. She denies any new shortness of breath, cough or other respiratory symptoms. Patient has no history of blood clots. She does not take blood thinners. Patient has no other complaints at this time. Review of Systems: Review of Systems: Constitutional: Denies fever, chills or generalized weakness Eyes: Denies change in visual acuity, visual field deficits or discharge HENT: Denies ear pain, nasal congestion or sore throat Respiratory: Denies cough or shortness of breath Cardiovascular: Denies chest pain, palpitations or edema GI: Denies abdominal pain, nausea, vomiting, bloody stools or diarrhea : Denies dysuria or hematuria Musculoskeletal: See HPI Integument: Denies rash or other skin lesion Neurologic: Denies headache, focal weakness or sensory changes Heart Score: C/O Chest Pain: No Current Medications: Current Medications Medications (Trade) Dose Ordered Sig/[facility] Start Time Stop Time Status Last Admin Dose Admin Acetaminophen (Tylenol) 650 mg 1X ONCE 11/27/21 12:45 11/27/21 12:46 DC 11/27/21 12:46 650 MG Allergies: Allergies: Allergies Coded Allergies Type Severity Reaction Last Updated Verified labetalol Allergy Intermediate 11/27/21 Yes Physical Exam: PE: Constitutional: Thin, well groomed, no acute distress, non-toxic appearance. HENT: Normocephalic, atraumatic, bilateral external ears normal, oropharynx moist, no oral exudates, nose normal. Eyes: Arcus senilis bilaterally, EOMI, conjunctiva normal, no discharge. Neck: Normal range of motion, no stridor. Skin: Warm, dry, no erythema, no rash. Extremities: Mild tenderness to palpation at the base of the left gastrocnemius, negative Homans' sign, no unilateral lower extremity swelling, no erythema, no cyanosis, no clubbing, active ROM intact, no edema. Neurologic: Alert and oriented x4, motor and sensory function grossly intact, no focal deficits noted. Current Patient Data: Vital Signs: Vital Signs Date Time Temp Pulse Resp B/P (MAP) Pulse Ox O2 Delivery O2 Flow Rate FiO2 11/27/21 11:59 97.5 76 14 179/78 (111) 98 97.5 Radiology/Procedures: Radiology/Procedures: PROCEDURE: VENOUS LOWER EXTREMITY LEFT Exam Date: 11/27/2021 12:49 PM US DPLX VENOUS EXTREMITY LOWER LT Indication: Reason: calf pain / Spl. Instructions: / History: . INDICATION: Lower extremity pain/swelling TECHNIQUE: Grayscale sonogram, color Doppler, and spectral Doppler waveform analysis of the lower extremity venous system was performed on the left. FINDINGS: The left common femoral, superficial femoral, central greater saphenous, popliteal, posterior tibial and peroneal veins are compressible and demonstrate normal color Doppler flow and normal spontaneous phasic waveforms or normal response to augmentation. IMPRESSION: No evidence of deep venous thrombosis in the left lower extremity. Electronically signed by: Saad Rosales MD (11/27/2021 1:18 PM) [facility] Course & Med Decision Making: Course & Med Decision Making Pertinent Labs and Imaging studies reviewed. (See chart for details) Patient is an 89-year-old female who presents to the emergency department to rule out DVT of the left lower extremity. She reports left lower leg pain that began yesterday and has improved since onset. There is no unilateral swelling, erythema or other indications aside from unilateral pain. She has no other complaints in the department today. Ultrasound ordered and obtained. Ultrasound is negative for DVT. Patient states her pain is improved after taking Tylenol. Patient and her family member at bedside are advised to follow- up with primary care, especially if the pain does not resolve. If her symptoms worsen or she develops any new symptoms, she should return to the emergency department. Patient and her family member at bedside understand and are agreeable to discharge plan. Viktoriya Bartlettimer: Viktoriya Disclaimer: This electronic medical record was generated, in whole or in part, using a voice recognition dictation system. Departure Departure Impression: Primary Impression: Pain in left lower leg Disposition: HOME / SELF CARE / HOMELESS Condition: STABLE Referrals: ERVIN JOE MD (PCP) Patient Instructions: Muscle Cramps, [id number] Additional Instructions: EMERGENCY DEPARTMENT GENERAL DISCHARGE INSTRUCTIONS Thank you for coming to [facility] Emergency Department (ED) today and trusting us with you care. We trust that you had a positive experience in our Emergency Department. If you wish to speak to the department management, you may call the director at . YOUR FOLLOW UP INSTRUCTIONS ARE FOLLOWS: 1. Follow up with your primary care doctor if your symptoms persist. If you do not have a primary doctor, please ask for a resource list of physicians or clinics that may be able to assist you with follow up care. 2. The emergency provider has interpreted your imaging studies, if any were ordered. The radiology cardiovascular disease specialist also reviewed them. If there is a change in the findings, you will be notified in 48 hours when at all possible. 3. If a lab test or culture has been done, your results will be reviewed and you will be notified if you need a change in treatment. 4. Follow instructions verbalized to you and refer to the printouts if needed. ADDITIONAL INSTRUCTIONS AND INFORMATION: 1. Your care today has been supervised by a physician who is specially trained in emergency care. Many problems require more than one evaluation for a complete diagnosis and treatment. We recommend that you schedule your follow up appointment as recommended to ensure complete treatment of you illness or injury. If you are unable to obtain follow up care and continue to have a problem, or if your condition worsens, we recommend that you return to the ED. 2. We are not able to safely determine your condition over the phone nor are we able to give sound medical advice over the phone. For these safety reasons, if you call for medical advice we will ask you to come to the ED for further evaluation. 3. If you have any questions regarding these discharge instructions please call the ED at . SAFETY INFORMATION: In the interest of safety, wellness, and injury prevention; we encourage you to wear your seat belt, if you smoke; quite smoking, and we encourage family to use a protective helmet for bicycling and other sporting events that present an increased risk for head injury. IF YOUR SYMPTOMS WORSEN OR NEW SYMPTOMS DEVELOP, OR YOU HAVE CONCERNS ABOUT YOUR CONDITION; OR IF YOUR CONDITION WORSENS WHILE YOU ARE WAITING FOR YOUR FOLLOW UP APPOINTMENT; EITHER CONTACT YOUR PRIMARY CARE DOCTOR, THE PHYSICIAN WHOSE NAME AND NUMBER YOU WERE GIVEN, OR RETURN TO THE ED IMMEDIATELY. SCOT WASSERMAN Nov 27, 2021 13:58
== END 2021-11-27 14:17 | disposition home or self-care (01) ==
LOC: ER 11:48
DX: M79.662 Pain in left lower leg (principal); E11.9 Type 2 diabetes mellitus without complications; E78.00 Pure hypercholesterolemia, unspecified; I10 Essential (primary) hypertension; Z88.8 Allergy status to other drugs, medicaments and biological substances
CPT/HCPCS: 93971; 99284